=== PATIENT | female | born 1950 | race Caucasian/White ===

== ENCOUNTER 2018-10-19 11:03 | Emergency (ER) | payer OTHER ==
--- OUTSIDE RECORDS SUMMARY | 2018-10-19 11:06 | XMS REPORT ---
:1950 Author Organization [facility] Address [address] [place] [address] Dr. Whiteside [address] [place] [address] Care Team Providers Name Role Phone Claire Rice Unavailable Problems This patient has no known problems. Allergies, Adverse Reactions, Alerts This patient has no known allergies or adverse reactions. Medications This patient has no known medications. Results Test Description Test Time Test Comments Text Results Atomic Results Result Comments [id number] 2017-02-26 SURGICAL 11:54:00 [facility] PATHOLOGY, [address] [place] [address] LEVEL IV Laboratory Printed: 02/26/17 1155 BK DAEMPathology Fax: Page: 1 Patient: EUSEBIA ZAVALETA Birthdate: 1949 Age/Sex: 66/F Spec#: [id number]: Claire Rice Specimen Date: 02/24/17 Received Date: 02/25/17 Specimen: SKIN CLINICAL DIAGNOSIS L98.9 PATHOLOGIC DIAGNOSIS Skin, abdomen, excision: - Irritated, inflamed seborrheic keratosis. - No dysplasia or malignancy identified. Pathologist:Jayson Cowan MD Entered by:02/26/17 - 1144 LAB.YGP PROCEDURES: [id number] GROSS DESCRIPTION A. SKIN ABDOMEN The specimen is received in 10% formalin, and is labeled with the patient's name and tissuerequest. Accompanying paperwork says "abdomen". The specimen consists of a borrero-pinkpolypoid slightly pedunculated tissue fragment measuring 1.2 x 1.0 x 0.5 cm in greatestdimensions. The deep margin is inked black. Both ends are shaved, and the remainingfragment is cross sectioned and entirely submitted in two cassettes, A1-2. Section code:A1 - ends Patient: EUSEBIA ZAVALETA Re02/24/17Loc[facility]#: [id number] CONTINUED ON NEXT PAGE Dis: Sta: DEP CLI [address] [address] Laboratory Printed: 02/26/[address] [facility] [facility] DAEMPathology Fax: Page: 2 Patient: EUSEBIA ZAVALETA [id number] (Continued) --- GROSS DESCRIPTION (Continued) A2 - cross sections Dictated by: Vidhi Varela Entered by: 02/25/17 - 1133 [facility].YGP MICROSCOPIC DESCRIPTION A microscopic examination was performed to arrive at the diagnostic conclusion reported. Signed ( Electronically Signed) Jayson Cowan MD 02/26/17 Patient: EUSEBIA ZAVALETAYCE Re06/05Loc: [facility] MR#: [id number] END OF REPORT Dis: Sta: DEP CLI
--- NOTE | 2018-10-19 12:57 | RAD REPORT ---
EXAM DESCRIPTION: RAD - Chest Single View - 10/19/2018 12:50 pm CLINICAL HISTORY: Cough and congestion, COPD COMPARISON: March 2014 TECHNIQUE: AP portable chest image was obtained 1239 hours . FINDINGS: No focal consolidation. Lung markings in the left midlung field are fractionally increased over comparison. No failure or volume overload findings. Heart and vasculature are normal. No measurable pleural effusion and no pneumothorax. No acute bony abnormality seen. No acute aortic findings suspected. IMPRESSION: No mass, consolidation or failure finding. Slight increase in lung markings left midlung field compared to 2014. A minimal left mid lung field i nfiltrate is possible.
--- NOTE | 2018-10-19 13:31 | ER ---
Nurse's Notes [facility] Name: Sonal Scruggs Age: 68 yrs Sex: Female : 1950 Arrival Date: 10/19/2018 Time: 11:04 Bed 25 Private MD: None, None Diagnosis: Acute bronchitis;Acute upper respiratory infection, unspecified Presentation: 10/19 11:23 Presenting complaint: Patient states: about a month, i think i have a virus, about 4 hj days ago, i started coughing up dark green stuff and its getting thicker as the day passes; reports fever and chills; took mucniex [employer];. Transition of care: patient was not received from another setting of care. Onset of symptoms was October 19, 2018. Risk Assessment: Do you want to hurt yourself or someone else? Patient reports no desire to harm self or others. Initial Sepsis Screen: Does the patient meet any 2 criteria? No. Patient's initial sepsis screen is negative. Does the patient have a suspected source of infection? No. Patient's initial sepsis screen is negative. Care prior to arrival: None. 11:23 Method Of Arrival: Ambulatory 11:23 Acuity: CONY 3 hj Triage Assessment: 11:26 General: Appears in no apparent distress. uncomfortable, Behavior is calm, cooperative, hj appropriate for age. Pain: Complains of pain in rib cage. Historical: - Allergies: 11:26 Ciprofloxacin HCl; hj 11:26 PENICILLINS; hj 11:26 Codeine; hj 11:26 TETRACYCLINES; hj 11:26 Azithromycin; hj - Home Meds: 11:26 metoprolol tartrate 25 mg Oral tab 1 tab 2 times per day [Active]; Paxil 10 mg Oral tab hj 1 tab once daily [Active]; aspirin 81 mg Oral TbEC 1 tab once daily [Active]; Zocor Oral [Active]; - PMHx: 11:26 Hypertension; Hyperlipidemia; hj - PSHx: 11:26 bladder sling; kidney surgery; Hysterectomy; Heart stents; hj - Immunization history:: Adult Immunizations up to date. - Social history:: Smoking status: Patient/guardian denies using tobacco, Patient/guardian denies using alcohol. - Ebola Screening: : Patient negative for fever greater than or equal to 101.5 degrees Fahrenheit, and additional compatible Ebola Virus Disease symptoms Patient denies exposure to infectious person Patient denies travel to an Ebola-affected area in the 21 days before illness onset. Screenin:27 Abuse screen: Denies threats or abuse. Denies injuries from another. Nutritional hj screening: No deficits noted. Tuberculosis screening: No symptoms or risk factors identified. Fall Risk Assessment: 12:29 General: Appears in no apparent distress. uncomfortable, Behavior is calm, cooperative, aj1 appropriate for age. Pain: Complains of pain in left lateral anterior chest Pain does not radiate. Pain currently is 5 out of 10 on a pain scale. Quality of pain is described as aching, Aggravated by cough. Neuro: Level of Consciousness is awake, alert, obeys commands. Cardiovascular: Patient's skin is warm and dry. Respiratory: Airway is patent Respiratory effort is even, unlabored, Respiratory pattern is regular, symmetrical. GI: Reports nausea, Patient currently denies diarrhea, vomiting. : No signs and/or symptoms were reported regarding the genitourinary system. Denies burning with urination, inability to void. EENT: No signs and/or symptoms were reported regarding the EENT system. Derm: No signs and/or symptoms reported regarding the dermatologic system. Skin is pink, warm \T\ dry. normal. Musculoskeletal: No signs and/or symptoms reported regarding the musculoskeletal system. Circulation, motion, and sensation intact. 13:30 Reassessment: Patient appears in no apparent distress at this time. No changes from aj1 previously documented assessment. Patient and/or family updated on plan of care and expected duration. Pain level reassessed. Patient is alert, oriented x 3, equal unlabored respirations, skin warm/dry/pink. 13:48 Reassessment: Dr. Wing at bedside. Order received to give patient breathing aj1 treatment prior to discharge. 14:41 Reassessment: Patient appears in no apparent distress at this time. No changes from aj1 previously documented assessment. Patient and/or family updated on plan of care and expected duration. Pain level reassessed. Patient is alert, oriented x 3, equal unlabored respirations, skin warm/dry/pink. Vital Signs: 11:27 BP 118 / 59; Pulse 72; Resp 18; Temp 97.7(TE); Pulse Ox 97% on R/A; Weight 88.45 kg; hj Height 5 ft. 6 in. (167.64 cm); Pain 3/10; 11:27 Body Mass Index 31.47 (88.45 kg, 167.64 cm) ED Course: 11:04 Patient arrived in ED. ag5 11:04 Dov Wing MD is Attending Physician. kdr 11:04 None, None is Private Physician. ag5 11:24 Triage completed. hj 11:27 Arm band placed on left wrist. hj 11:27 Patient has correct armband on for positive identification. Placed in gown. Bed in low hj position. Call light in reach. Side rails up X 1. 12:19 Kiley Greer, RN is Primary Nurse. aj1 12:29 No provider procedures requiring assistance completed. aj1 12:48 X-ray completed. Portable x-ray completed in exam room. Patient tolerated procedure jb2 well. 12:50 CXR XRAY In Process Unspecified. EDMS 14:41 Patient did not have IV access during this emergency room visit. aj1 Administered Medications: 14:11 Drug: LevaQUIN 500 mg Route: PO; aj1 14:12 Drug: Xopenex 1.25 mg Route: Inhalation; aj1 Outcome: 13:29 Discharge ordered by . kdr 14:41 Discharged to home ambulatory. aj1 14:41 Condition: good 14:41 Discharge instructions given to patient, Instructed on discharge instructions, follow up and referral plans. medication usage, Demonstrated understanding of instructions, follow-up care, medications, Prescriptions given X 4. 14:42 Patient left the ED. aj1 Signatures: Dispatcher [employer] EDUT Kiley Greer, IRAJ RN aj1 Dov Wing MD MD [facility] Jose Juan Lopez jb2 Anil Palmer RN RN Stephane Cruz ag5 Corrections: (The following items were deleted from the chart) 11:29 11:27 Pulse 72bpm; Resp 18bpm; Pulse Ox 97% RA; Temp 97.7F Temporal; 88.45 kg; Height 5 hj ft. 6 in.; BMI: 31.4; Pain 3/10; hj
--- NOTE | 2018-10-19 13:31 | EDPHYS ---
Physician Documentation [facility] Name: Sonal Scruggs Age: 68 yrs Sex: Female : 1950 Arrival Date: 10/19/2018 Time: 11:04 Bed 25 Private MD: None, None ED Physician Dov Wing HPI: 10/20 08:04 This 68 yrs old Female presents to ER via Ambulatory with complaints of Cough.kdr 08:04 The patient or guardian reports airway noise, cough, that is intermittent, described as kdr moderate, with productive sputum, that is green. Onset: The symptoms/episode began/occurred gradually, 4 day(s) ago. Severity of symptoms: At their worst the symptoms were mild, moderate, just prior to arrival, in the emergency department the symptoms are unchanged. Modifying factors: The symptoms are alleviated by nothing, the symptoms are aggravated by. Associated signs and symptoms: Pertinent positives: Pertinent negatives: chest pain, diarrhea, ear ache, fever, nausea, rhinorrhea, sore throat, vomiting. The patient has not experienced similar symptoms in the past. The patient has not recently seen a physician. Historical: - Allergies: 10/19 11:26 Ciprofloxacin HCl; hj 11:26 PENICILLINS; hj 11:26 Codeine; hj 11:26 TETRACYCLINES; hj 11:26 Azithromycin; hj - Home Meds: 11:26 metoprolol tartrate 25 mg Oral tab 1 tab 2 times per day [Active]; Paxil 10 mg Oral tab hj 1 tab once daily [Active]; aspirin 81 mg Oral TbEC 1 tab once daily [Active]; Zocor Oral [Active]; - PMHx: 11:26 Hypertension; Hyperlipidemia; hj - PSHx: 11:26 bladder sling; kidney surgery; Hysterectomy; Heart stents; hj - Immunization history:: Adult Immunizations up to date. - Social history:: Smoking status: Patient/guardian denies using tobacco, Patient/guardian denies using alcohol. - Ebola Screening: : Patient negative for fever greater than or equal to 101.5 degrees Fahrenheit, and additional compatible Ebola Virus Disease symptoms Patient denies exposure to infectious person Patient denies travel to an Ebola-affected area in the 21 days before illness onset. ROS: 10/20 08:04 Constitutional: Negative for fever, chills, and weight loss, Eyes: Negative for injury, kdr pain, redness, and discharge, Neck: Negative for injury, pain, and swelling, Cardiovascular: Negative for chest pain, palpitations, and edema, Abdomen/GI: Negative for abdominal pain, nausea, vomiting, diarrhea, and constipation, Back: Negative for injury and pain, Skin: Negative for injury, rash, and discoloration, Neuro: Negative for headache, weakness, numbness, tingling, and seizure activity. Psych: Negative for depression, anxiety, suicide ideation, homicidal ideation, and hallucinations, Allergy/Immunology: Negative for hives, rash, and allergies, Endocrine: Negative for neck swelling, polydipsia, polyuria, polyphagia, and marked weight changes, Hematologic/Lymphatic: Negative for swollen nodes, abnormal bleeding, and unusual bruising. Respiratory: Positive for cough, with no reported sputum, dyspnea on exertion, shortness of breath, Negative for hemoptysis, orthopnea, pleurisy, wheezing. Exam: 08:04 Constitutional: This is a well developed, well nourished patient who is awake, alert, kdr and in no acute distress. Head/Face: Normocephalic, atraumatic. Eyes: Pupils equal round and reactive to light, extra-ocular motions intact. Lids and lashes normal. Conjunctiva and sclera are non-icteric and not injected. Cornea within normal limits. Periorbital areas with no swelling, redness, or edema. Neck: Trachea midline, no thyromegaly or masses palpated, and no cervical lymphadenopathy. Supple, full range of motion without nuchal rigidity, or vertebral point tenderness. No Meningismus. Chest/axilla: Normal chest wall appearance and motion. Nontender with no deformity. No lesions are appreciated. Cardiovascular: Regular rate and rhythm with a normal S1 and S2. No gallops, murmurs, or rubs. Normal PMI, no JVD. No pulse deficits. Abdomen/GI: Soft, non-tender, with normal bowel sounds. No distension or tympany. No guarding or rebound. No evidence of tenderness throughout. Back: No spinal tenderness. No costovertebral tenderness. Full range of motion. Skin: Warm, dry with normal turgor. Normal color with no rashes, no lesions, and no evidence of cellulitis. MS/ Extremity: Pulses equal, no cyanosis. Neurovascular intact. Full, normal range of motion. Neuro: Awake and alert, GCS 15, oriented to person, place, time, and situation. Cranial nerves II-XII grossly intact. Motor strength 5/5 in all extremities. Sensory grossly intact. Cerebellar exam normal. Normal gait. Psych: Awake, alert, with orientation to person, place and time. Behavior, mood, and affect are within normal limits. 08:04 Respiratory: the patient does not display signs of respiratory distress, Respirations: normal, Breath sounds: decreased breath sounds, that are mild, are scattered, rhonchi, that are moderate, are located in both bases, stridor, is not appreciated, + upper airway congestion. Vital Signs: 10/19 11:27 BP 118 / 59; Pulse 72; Resp 18; Temp 97.7(TE); Pulse Ox 97% on R/A; Weight 88.45 kg; hj Height 5 ft. 6 in. (167.64 cm); Pain 3/10; 11:27 Body Mass Index 31.47 (88.45 kg, 167.64 cm) hj MDM: 13:29 Patient medically screened. kdr 10/20 08:04 Data reviewed: vital signs, nurses notes, lab test result(s), radiologic studies. kdr Counseling: I had a detailed discussion with the patient and/or guardian regarding: the historical points, exam findings, and any diagnostic results supporting the discharge/admit diagnosis, lab results, radiology results, the need for outpatient follow up. 10/19 12:27 Order name: Flu; Complete Time: 13:26 kdr 10/19 12:27 Order name: CXR XRAY; Complete Time: 13:26 kdr Administered Medications: 10/19 14:11 Drug: LevaQUIN 500 mg Route: PO; aj1 14:12 Drug: Xopenex 1.25 mg Route: Inhalation; aj1 Disposition: 10/19/18 13:29 Discharged to Home. Impression: Acute bronchitis, Acute upper respiratory infection, unspecified. - Condition is Stable. - Discharge Instructions: Acute Bronchitis, Fooh-du-Phps, Upper Respiratory Infection, Adult, Oahd-fh-Rynj, Cough, Adult, Kmgm-eh-Oaet. - Prescriptions for Tessalon Perles 100 mg Oral Capsule - take 1 capsule by ORAL route every 8 hours As needed; 15 capsule. Mucinex D Maximum Strength 120- 1,200 mg Oral tablet extended release 12 hr - take 1 tablet by ORAL route every 12 hours As needed as needed; 20 tablet. Xopenex HFA 45 mcg/actuation Inhalation HFA aerosol inhaler - inhale 2 puff by INHALATION route every 4-6 hours As needed; 1 Cartridge. Levaquin 500 mg Oral Tablet - take 1 tablet by ORAL route once daily for 10 days; 10 tablet. - Medication Reconciliation Form, Thank You Letter, Antibiotic Education form. - Follow up: Private Physician; When: 2 - 3 days; Reason: If symptoms return, Further diagnostic work-up, Recheck today's complaints, Continuance of care, Re-evaluation by your physician. - Problem is new. - Symptoms have improved. Signatures: Dispatcher [employer] EDKiley Virk RN RN aj1 Dov Wing MD MD kdr Joaquin, Henry, RN RN hj Corrections: (The following items were deleted from the chart) 14:42 13:29 10/19/2018 13:29 Discharged to Home. Impression: Acute bronchitis; Acute upper aj1 respiratory infection, unspecified. Condition is Stable. Forms are Medication Reconciliation Form, Thank You Letter, Antibiotic Education, Prescription Opioid Use. Follow up: Private Physician; When: 2 - 3 days; Reason: If symptoms return, Further diagnostic work-up, Recheck today's complaints, Continuance of care, Re-evaluation by your physician. Problem is new. Symptoms have improved. kdr
[2018-10-19] MEDS ORDERED: LEVALBUTEROL 1.25 MG/3 ML NEB ONE (14:03)
[2018-10-19] MEDS ORDERED: levoFLOXacin 500 MG TAB ONE (14:04)
[2018-10-19 14:48] VITALS: BP 118/59; TEMP 97.7; O2SAT 97
== END 2018-10-19 14:42 | disposition home or self-care (01) ==
LOC: ER 11:03
DX: J20.9 Acute bronchitis, unspecified (principal); J06.9 Acute upper respiratory infection, unspecified; I10 Essential (primary) hypertension; E78.5 Hyperlipidemia, unspecified; Z79.82 Long term (current) use of aspirin; Z88.0 Allergy status to penicillin; Z88.1 Allergy status to other antibiotic agents; Z88.3 Allergy status to other anti-infective agents; Z88.5 Allergy status to narcotic agent; Z95.818 Presence of other cardiac implants and grafts
CPT/HCPCS: 71045; 87804; 99284

== ENCOUNTER 2019-07-04 11:18 | Emergency (ER) | payer BC, OTHER ==
--- OUTSIDE RECORDS SUMMARY | 2019-07-04 11:20 | XMS REPORT ---
:1950 [facility] Address [address] [place] [address] Dr. Whiteside [address] [place] [address] Care Team Providers Name Role Phone Claire Rice Unavailable Problems This patient has no known problems. Allergies, Adverse Reactions, Alerts This patient has no known allergies or adverse reactions. Medications This patient has no known medications. Results Test Description Test Time Test Comments Text Results Atomic Results Result Comments [id number] 2017-02-26 SURGICAL 11:54:00 [facility] PATHOLOGY, [address] [place] [address] LEVEL IV Laboratory Printed: 02/26/17 1155 BK DAEMPathology Fax: Page: 1 Patient: EUSEBIA ZAVALETA Birthdate: 1949 Age/Sex: 66/F Spec#: [id number]: Claire Rice Specimen Date: 02/24/17 Received Date: 02/25/17 Specimen: SKIN CLINICAL DIAGNOSIS L98.9 PATHOLOGIC DIAGNOSIS Skin, abdomen, excision: - Irritated, inflamed seborrheic keratosis. - No dysplasia or malignancy identified. Pathologist:Jayson Cowan MD Entered by:02/26/17 - 1144 LAB.YGP PROCEDURES: [id number] GROSS DESCRIPTION A. SKIN ABDOMEN The specimen [...] code:A1 - ends Patient: EUSEBIA ZAVALETA Re02/24/17Loc[facility] [id number] CONTINUED ON NEXT PAGE Dis: Sta: DEP CLI [address] [address] Laboratory Printed: 02/26/[address] [place] [address] DAEMPathology Fax: Page: 2 Patient: EUSEBIA ZAVALETA [id number] (Continued) --- GROSS DESCRIPTION (Continued) A2 - cross sections Dictated by: Vidhi Varela Entered by: 02/25/17 - 1133 [facility].YGP MICROSCOPIC DESCRIPTION A microscopic examination was performed to arrive at the diagnostic conclusion reported. Signed ( Electronically Signed) Jayson Cowan MD 02/26/17 Patient: EUSEBIA ZAVALETAYCE Re06/05Loc: [facility] MR#: [id number] END OF REPORT Dis: Sta: DEP CLI
[2019-07-04] MEDS ORDERED: ALBUTEROL 2.5 MG/3 ML NEB SOL ONE (12:30)
[2019-07-04] MEDS ORDERED: IPRATROPIUM BROM 0.5MG/2.5ML ONE (12:30)
[2019-07-04 13:15] LABS: Absolute Lymphocytes (CBC) 1.1 K/uL (0.7-4.9); Basophils % 0.3 % (0-1.3); Hematocrit 38.1 % (36.0-45.0); Lymphocytes % 18.2 % (15.3-44.8); MPV 11.3 fL (7.6-11.3); RBC Red Blood Cell Count 4.33 M/uL (3.86-4.86)
[2019-07-04] MEDS ORDERED: MECLIZINE HCL 12.5 MG TAB ONE (13:22)
[2019-07-04 13:28] LABS: Protime INR 0.96
[2019-07-04 13:33] LABS: ALT/SGPT 20 U/L (12-78); AST/SGOT 16 U/L (15-37); Alkaline Phosphatase 89 U/L (45-117); BUN Blood Urea Nitrogen 15 mg/dL (7-18); Bicarbonate 29 mmol/L (21-32); Bilirubin Direct 0.2 mg/dL (0-0.2); Bilirubin Total 0.6 mg/dL (0.2-1.0); Glucose Level 104 mg/dL (74-106); Magnesium 2.4 mg/dL (1.8-2.4); NT PRO-BNP 668 pg/mL (<125); Potassium 4.1 mmol/L (3.5-5.1); Protein, Total 7.5 g/dL (6.4-8.2); Sodium Level 143 mmol/L (136-145); Troponin (Emerg Dept Use Only) < 0.02 ng/mL (0.0-0.045)
--- NOTE | 2019-07-04 13:56 | RAD REPORT ---
EXAM DESCRIPTION: RAD - Chest Pa And Lat (2 Views) - 07/04/2019 1:39 pm CLINICAL HISTORY: Cough;Congestion Chest pain. COMPARISON: Chest Single View dated 10/19/2018; CHEST SINGLE VIEW dated 04/16/2014; CHEST SINGLE VIEW dated 04/12/2014; CHEST SINGLE VIEW dated 12/27/2013 FINDINGS: Hyperexpansion of the lungs noted compatible with COPD. Interstitial prominence with perib ronchial cuffing suggests underlying bronchitis. The heart is normal in size. No displaced fractures.
--- NOTE | 2019-07-04 14:15 | ER ---
Nurse's Notes [facility] Name: Sonal Scruggs Age: 69 yrs Sex: Female : 1950 Arrival Date: 07/04/2019 Time: 11:20 Bed 25 Private MD: Diagnosis: Acute bronchitis Presentation: 07/04 11:57 Presenting complaint: Productive cough with dark green mucous decreased appetite, mid hb back pain, and chills x 2 week. Transition of care: patient was not received from another setting of care. Onset of symptoms was June 27, 2019. Risk Assessment: Do you want to hurt yourself or someone else? Patient reports no desire to harm self or others. Initial Sepsis Screen: Does the patient meet any 2 criteria? No. Patient's initial sepsis screen is negative. Does the patient have a suspected source of infection? No. Patient's initial sepsis screen is negative. Care prior to arrival: None. 11:57 Method Of Arrival: Ambulatory hb 11:57 Acuity: CONY 3 hb Historical: - Allergies: 12:01 Azithromycin; hb 12:01 Ciprofloxacin HCl; hb 12:01 Codeine; hb 12:01 PENICILLINS; hb 12:01 TETRACYCLINES; hb - Home Meds: 12:01 aspirin 81 mg Oral TbEC 1 tab once daily [Active]; metoprolol tartrate 25 mg Oral tab 1 hb tab 2 times per day [Active]; Paxil 10 mg Oral tab 1 tab once daily [Active]; Zocor Oral [Active]; - PMHx: 12:01 Hyperlipidemia; Hypertension; hb - PSHx: 12:01 bladder sling; kidney surgery; Hysterectomy; Heart stents; hb - Immunization history:: Adult Immunizations up to date. - Social history:: Smoking status: Patient/guardian denies using tobacco. - Ebola Screening: : No symptoms or risks identified at this time. Screenin:25 Abuse screen: Denies threats or abuse. Denies injuries from another. Nutritional ca1 screening: No deficits noted. Tuberculosis screening: No symptoms or risk factors identified. Fall Risk None identified. Assessment: 12:25 General: Appears in no apparent distress. comfortable, Behavior is calm, cooperative, ca1 appropriate for age. Pain: Complains of pain in mid back area Pain does not radiate. Pain currently is 5 out of 10 on a pain scale. Pain began 2-3 days ago. Neuro: Level of Consciousness is awake, alert, obeys commands, Oriented to person, place, time, situation. Cardiovascular: Heart tones S1 S2 present Capillary refill < 3 seconds Patient's skin is warm and dry. Cardiovascular: Pulses are all present. Respiratory: Reports cough that is productive, since a week today Airway is patent Respiratory effort is even, unlabored, Respiratory pattern is regular, symmetrical, Breath sounds are clear bilaterally. GI: Abdomen is flat, non-distended, Bowel sounds present X 4 quads. Abd is soft and non tender X 4 quads. : No deficits noted. No signs and/or symptoms were reported regarding the genitourinary system. EENT: Reports nasal congestion since a week ago. Derm: Skin is intact, is healthy with good turgor, Skin is pink, warm \\T\\ dry. Musculoskeletal: Circulation, motion, and sensation intact. Capillary refill < 3 seconds, Range of motion: intact in all extremities. 13:43 Reassessment: Patient appears in no apparent distress at this time. Patient and/or ca1 family updated on plan of care and expected duration. Pain level reassessed. Patient is alert, oriented x 3, equal unlabored respirations, skin warm/dry/pink. Pt back from Xray. States feeling and breathing better. Vital Signs: 11:59 BP 154 / 72; Pulse 58; Resp 22; Temp 97.8; Pulse Ox 97% on R/A; Weight 86.18 kg; Height hb 5 ft. 6 in. (167.64 cm); Pain 5/10; 12:32 BP 144 / 69 RA Supine (auto/reg); Pulse 61; Pulse Ox 100% on R/A; jp3 12:34 BP 185 / 71 RA Sitting (auto/reg); Pulse 66; Pulse Ox 98% on R/A; jp3 12:36 BP 152 / 71 RA Standing (auto/reg); Pulse 70; Pulse Ox 98% on R/A; jp3 13:43 BP 131 / 58; Pulse 72; Resp 20 S; Pulse Ox 98% on R/A; ca1 11:59 Body Mass Index 30.67 (86.18 kg, 167.64 cm) hb 12:32 pt reported "dizziness" jp3 12:34 pt reported "some dizziness but not as bad as supine" jp3 12:36 Pt reported "some dizziness but not as bad as supine" jp3 ED Course: 11:20 Patient arrived in ED. rg4 11:59 Triage completed. hb 12:13 Ying Mcallister, RN is Primary Nurse. ca1 12:13 Palmer Johnson PA is PHCP. cp 12:13 Dov Wing MD is Attending Physician. cp 12:25 Patient has correct armband on for positive identification. Bed in low position. Call ca1 light in reach. Side rails up X 1. Pulse ox on. NIBP on. Warm blanket given. 12:25 Arm band placed on. ca1 12:25 No provider procedures requiring assistance completed. ca1 12:45 Urine collected: clean catch specimen, clear, rubia colored, Flu and/or RSV swab sent jp3 to lab. Strep swab sent to lab. 12:50 Strep Sent. jp3 12:50 Flu Sent. jp3 13:00 Initial lab(s) drawn, by nc, sent to lab. Inserted saline lock: 22 gauge in left 3 antecubital area, using aseptic technique. Blood collected. 13:04 Troponin (emerg Dept Use Only) Sent. jp3 13:04 PT-INR Sent. jp3 13:04 NT PRO-BNP Sent. jp3 13:04 CBC with Diff Sent. jp3 13:04 Magnesium Sent. jp3 13:05 LFT's Sent. jp3 13:05 Basic Metabolic Panel Sent. jp3 13:27 EKG done, by ED staff, reviewed by Palmer CROWE. jp3 14:22 IV discontinued, intact, bleeding controlled, No redness/swelling at site. Pressure ca1 dressing applied. Administered Medications: 12:32 Drug: Albuterol - atroVENT (3:1) (2.5 mg - 0.5 mg) 3 ml Route: Nebulizer; ca1 13:26 Drug: Meclizine 25 mg Route: PO; ca1 14:20 Follow up: Response: No adverse reaction; Marked relief of symptoms ca1 Outcome: 14:14 Discharge ordered by MD. cp 14:22 Discharged to home ambulatory. ca1 14:22 Condition: stable 14:22 Discharge instructions given to patient, Instructed on discharge instructions, follow up and referral plans. medication usage, Demonstrated understanding of instructions, follow-up care, medications, Prescriptions given X 3. 14:23 Patient left the ED. ca1 Signatures: Palmer Johnson PA PA cp Baxter, Heather, IRAJ RN hb Anamaria Rodriguez rg4 Nam Bautista jp3 Ying Mcallister RN RN ca1 Corrections: (The following items were deleted from the chart) 12:00 11:59 Pulse 58bpm; Resp 22bpm; Pulse Ox 97% RA; Temp 97.8F; 86.18 kg; Height 5 ft. 6 hb in.; BMI: 30.6; Pain 5/10; hb 13:46 13:43 BP 131 / 58; Pulse 72bpm; Resp 20bpm; Pulse Ox 98% RA; ca1 ca1
--- NOTE | 2019-07-04 14:16 | EDPHYS ---
Physician Documentation [facility] Name: Sonal Scruggs Age: 69 yrs Sex: Female : 1950 Arrival Date: 07/04/2019 Time: 11:20 Bed 25 Private MD: ED Physician Dov Wing HPI: 07/04 12:40 This 69 yrs old Female presents to ER via Ambulatory with complaints of cp Cough, Congestion. 12:40 The patient or guardian reports cough, that is intermittent, with productive sputum, cp that is green. Onset: The symptoms/episode began/occurred 1 week(s) ago. 12:40 Severity of symptoms: in the emergency department the symptoms are unchanged, despite cp home interventions. Associated signs and symptoms: Pertinent positives: chills, back pain, dizziness, Pertinent negatives: diarrhea, fever, vomiting. Historical: - Allergies: 12:01 Azithromycin; hb 12:01 Ciprofloxacin HCl; hb 12:01 Codeine; hb 12:01 PENICILLINS; hb 12:01 TETRACYCLINES; hb - Home Meds: 12:01 aspirin 81 mg Oral TbEC 1 tab once daily [Active]; metoprolol tartrate 25 mg Oral tab 1 hb tab 2 times per day [Active]; Paxil 10 mg Oral tab 1 tab once daily [Active]; Zocor Oral [Active]; - PMHx: 12:01 Hyperlipidemia; Hypertension; hb - PSHx: 12:01 bladder sling; kidney surgery; Hysterectomy; Heart stents; hb - Immunization history:: Adult Immunizations up to date. - Social history:: Smoking status: Patient/guardian denies using tobacco. - Ebola Screening: : No symptoms or risks identified at this time. ROS: 12:45 Eyes: Negative for injury, pain, redness, and discharge. cp 12:45 ENT: Negative for sore throat, difficulty swallowing, difficulty handling secretions. 12:45 Cardiovascular: Negative for palpitations. 12:45 Respiratory: Positive for cough, with green sputum, Negative for hemoptysis. 12:45 Abdomen/GI: Negative for abdominal pain, vomiting, diarrhea, constipation. 12:45 Neuro: Positive for dizziness, Negative for altered mental status, syncope, weakness. 12:45 Constitutional: Positive for chills, Negative for fever, poor PO intake, weight loss. cp 12:45 Back: Positive for pain at rest. 12:45 : Negative for urinary symptoms. cp 12:45 Skin: Negative for rash. 12:45 All other systems are negative. Exam: 12:55 Constitutional: The patient appears in no acute distress, alert, awake, cp non-diaphoretic, non-toxic, well developed, well nourished. 12:55 Head/Face: Normocephalic, atraumatic. cp 12:55 Eyes: Periorbital structures: appear normal, Pupils: equal, round, and reactive to cp light and accomodation, Extraocular movements: intact throughout, Conjunctiva: normal, no exudate, no injection, Sclera: no appreciated abnormality, Lids and lashes: appear normal, bilaterally. 12:55 ENT: External ear(s): are unremarkable, Ear canal(s): are normal, clear, TM's: bulging, cp is not appreciated, bilaterally, dullness, bilaterally, erythema, is not appreciated, bilaterally, Nose: is normal, Mouth: Lips: moist, Oral mucosa: pink and intact, moist, Posterior pharynx: Airway: no evidence of obstruction, patent, Tonsils: are normal in appearance, Uvula: midline, swelling, is not appreciated, erythema, is not appreciated, exudate, is not appreciated. 12:55 Neck: ROM/movement: is normal, is supple, without pain, no range of motions limitations, no meningismus, no nuchal rigidity. 12:55 Chest/axilla: Inspection: normal, Palpation: is normal, no crepitus, no tenderness. 12:55 Cardiovascular: Rate: normal, Rhythm: regular, Edema: is not appreciated, JVD: is not appreciated. 12:55 Respiratory: the patient does not display signs of respiratory distress, Respirations: normal, no use of accessory muscles, no retractions, no splinting, no tachypnea, labored breathing, is not present, Breath sounds: bronchial sounds, that are mild, are heard diffusely, decreased breath sounds, are not appreciated, stridor, is not appreciated, + upper airway congestion. 12:55 Abdomen/GI: Inspection: abdomen appears normal, Palpation: abdomen is soft and non-tender, in all quadrants. 12:55 Back: pain, is absent, ROM is normal. 12:55 Skin: no rash present. 12:55 Neuro: Orientation: to person, place \\T\\ time. Mentation: is normal, Cerebellar function: is grossly normal, Motor: moves all fours, strength is normal, Sensation: is normal. 13:29 ECG was reviewed by the Attending Physician. cp Vital Signs: 11:59 BP 154 / 72; Pulse 58; Resp 22; Temp 97.8; Pulse Ox 97% on R/A; Weight 86.18 kg; Height hb 5 ft. 6 in. (167.64 cm); Pain 5/10; 12:32 BP 144 / 69 RA Supine (auto/reg); Pulse 61; Pulse Ox 100% on R/A; jp3 12:34 BP 185 / 71 RA Sitting (auto/reg); Pulse 66; Pulse Ox 98% on R/A; jp3 12:36 BP 152 / 71 RA Standing (auto/reg); Pulse 70; Pulse Ox 98% on R/A; jp3 13:43 BP 131 / 58; Pulse 72; Resp 20 S; Pulse Ox 98% on R/A; ca1 11:59 Body Mass Index 30.67 (86.18 kg, 167.64 cm) hb 12:32 pt reported "dizziness" jp3 12:34 pt reported "some dizziness but not as bad as supine" jp3 12:36 Pt reported "some dizziness but not as bad as supine" jp3 MDM: 12:15 Patient medically screened. cp 13:00 Differential Diagnosis: Bronchitis Viral Syndrome Pneumonia. cp 14:12 Data reviewed: vital signs, nurses notes, lab test result(s), EKG, radiologic studies, cp plain films. ED course: VSS. Patient with history of COPD and with length of symptoms for past 1-2 weeks, will treat outpatient with Levaquin antibiotic. 14:12 Test interpretation: by ED physician or midlevel provider: ECG, plain radiologic cp studies. 14:12 Counseling: I had a detailed discussion with the patient and/or guardian regarding: the cp historical points, exam findings, and any diagnostic results supporting the discharge/admit diagnosis, lab results, radiology results, the need for outpatient follow up, a family practitioner, to return to the emergency department if symptoms worsen or persist or if there are any questions or concerns that arise at home. Response to treatment: the patient's symptoms have markedly improved after treatment, and as a result, I will discharge patient. 07/04 12:00 Order name: Flu hb 07/04 12:01 Order name: Strep hb 07/04 12:35 Order name: Group A Streptococcus Rapid Sc; Complete Time: 12:47 EDMS 07/04 12:47 Interpretation: Reviewed. 07/04 12:46 Order name: Influenza Screen (A ; Complete Time: 12:47 EDMS 07/04 12:47 Interpretation: Reviewed. 07/04 12:49 Order name: Basic Metabolic Panel 07/04 12:49 Order name: CBC with Diff 07/04 12:49 Order name: LFT's 07/04 12:49 Order name: Magnesium 07/04 12:49 Order name: NT PRO-BNP 07/04 12:49 Order name: PT-INR 07/04 12:49 Order name: Troponin (emerg Dept Use Only) 07/04 13:18 Order name: CBC with Automated Diff; Complete Time: 13:37 EDMS 07/04 13:37 Interpretation: Normal except: PLT 106. 07/04 13:31 Order name: Protime (+INR); Complete Time: 13:37 EDMS 07/04 13:34 Order name: Basic Metabolic Panel; Complete Time: 13:37 EDMS 07/04 13:37 Interpretation: Normal except: GFR 60. 07/04 12:27 Order name: XRAY Chest Pa And Lat (2 Views) 07/04 12:49 Order name: EKG; Complete Time: 12:50 07/04 12:49 Order name: Cardiac monitoring; Complete Time: 13:04 07/04 12:49 Order name: EKG - Nurse/Tech; Complete Time: 13:26 07/04 12:49 Order name: IV Saline Lock; Complete Time: 13:04 07/04 12:49 Order name: Labs collected and sent; Complete Time: 13:04 07/04 12:49 Order name: O2 Per Protocol; Complete Time: 13:04 07/04 12:49 Order name: O2 Sat Monitoring; Complete Time: 13:04 07/04 13:34 Order name: Liver (Hepatic) Function; Complete Time: 13:37 EDMS 07/04 13:34 Order name: Troponin (Emerg Dept Use Only); Complete Time: 13:37 EDMS 07/04 13:35 Order name: NT PRO-BNP; Complete Time: 13:37 EDMS 07/04 13:37 Interpretation: Abnormal: NT PRO-BNP 668. cp 07/04 13:35 Order name: Magnesium; Complete Time: 13:37 EDMS 07/04 13:58 Order name: RAD; Complete Time: 14:09 EDMS EC:29 Rate is 70 beats/min. Rhythm is regular. FL interval is normal. QRS interval is normal. cp QT interval is normal. Interpreted by me. Reviewed by me. Administered Medications: 12:32 Drug: Albuterol - atroVENT (3:1) (2.5 mg - 0.5 mg) 3 ml Route: Nebulizer; ca1 13:26 Drug: Meclizine 25 mg Route: PO; ca1 14:20 Follow up: Response: No adverse reaction; Marked relief of symptoms ca1 Disposition: 07/05 09:35 Co-signature as Attending Physician, Dov Wing MD I agree with the assessment and kdr plan of care. Disposition: 07/04/19 14:14 Discharged to Home. Impression: Acute bronchitis. - Condition is Stable. - Discharge Instructions: Acute Bronchitis, Adult. - Prescriptions for Levaquin 500 mg Oral Tablet - take 1 tablet by ORAL route once daily for 7 days; 7 tablet. Albuterol Sulfate 90 mcg/actuation - inhale 1-2 puff by INHALATION route every 4-6 hours; 1 Inhaler. Tessalon Perles 100 mg Oral Capsule - take 2 capsule by ORAL route every 8 hours As needed; 20 capsule. - Medication Reconciliation Form, Thank You Letter, Antibiotic Education, Prescription Opioid Use form. - Follow up: Private Physician; When: 2 - 3 days; Reason: Recheck today's complaints. - Problem is new. - Symptoms have improved. Signatures: Dispatcher [employer] EDNC Dov Wing MD MD [facility] Palmer Johnson PA PA cp Baxter, Heather, RN RN Ying Mcallister RN RN ca1 Corrections: (The following items were deleted from the chart) 07/04 14:23 14:14 07/04/2019 14:14 Discharged to Home. Impression: Acute bronchitis. Condition is ca1 Stable. Forms are Medication Reconciliation Form, Thank You Letter, Antibiotic Education, Prescription Opioid Use. Follow up: Private Physician; When: 2 - 3 days; Reason: Recheck today's complaints. Problem is new. Symptoms have improved. cp 07/05 12:07/04 12:45 Constitutional: Negative for body aches, fever, poor PO intake, cp cp 07/05 12:07/04 12:45 All other systems are negative, cp cp
[2019-07-04 14:58] VITALS: TEMP 97.8
[2019-07-04 15:01] VITALS: O2SAT 98
[2019-07-04 15:03] VITALS: BP 131/58
--- NOTE | 2019-07-05 11:35 | EKG ---
Test Date: 2019-07-04 Test Time: 13:25:13 Power Distribution Engineer: WILBERTO MEASUREMENT RESULTS: Intervals: Rate: 70 DE: 120 QRSD: 88 QT: 392 QTc: 423 [place]: P: 63 DE: 120 QRS: 62 T: -47 INTERPRETIVE STATEMENTS: Normal sinus rhythm Nonspecific ST and T wave abnormality Abnormal ECG Compared to ECG 04/17/2014 07:59:05 ST (T wave) deviation now present Atrial premature complex(es) no longer present Electronically Signed On 07-05-19 11:31:23 CDT by Carlos Garland
== END 2019-07-04 14:23 | disposition home or self-care (01) ==
LOC: ER 11:18
DX: J20.9 Acute bronchitis, unspecified (principal); I10 Essential (primary) hypertension; E78.5 Hyperlipidemia, unspecified; Z88.0 Allergy status to penicillin; Z88.6 Allergy status to analgesic agent; Z88.3 Allergy status to other anti-infective agents
CPT/HCPCS: 36415; 71046; 80048; 80076; 83735; 83880; 84484; 85025; 85610; 87070; 87081; 87804; 93005; 94640; 99284

== ENCOUNTER 2019-11-07 18:05 | Observation (INO) | payer OTHER ==
--- OUTSIDE RECORDS SUMMARY | 2019-11-07 18:14 | XMS REPORT ---
:1950 [facility] [address] [place] [address] Dr. Whiteside [address] [place] [id number] Care Team Providers Name Role Phone Claire Rice Unavailable Unavailable Problems This patient has no known problems. Allergies, Adverse Reactions, Alerts This patient has no known allergies or adverse reactions. Medications This patient has no known medications. Results Test Description Test Time Test Comments Text Results Atomic Results Result Comments [id number] 2017-02-26 SURGICAL 11:54:00 [facility] PATHOLOGY, [facility] [place] [address] LEVEL IV Laboratory Printed: 02/26/17 1155 [facility] DAEMPathology Fax: Page: 1 Patient: EUSEBIA ZAVALETA Birthdate: 1949 Age/Sex: 66/F Spec#: [id number]: Claire Rice Specimen Date: 02/24/17 Received Date: 02/25/17 Specimen: SKIN CLINICAL DIAGNOSIS L98.9 PATHOLOGIC DIAGNOSIS Skin, abdomen, excision: - Irritated, inflamed seborrheic keratosis. - No dysplasia or malignancy identified. Pathologist:Jayson Cowan MD Entered by:02/26/17 - 1144 LAB.YGP PROCEDURES: [id number] GROSS DESCRIPTION A. SKIN ABDOMEN The specimen [...] code:A1 - ends Patient: EUSEBIA ZAVALETA Re02/24/17Loc: [facility] MR#: [id number] CONTINUED ON NEXT PAGE Dis: Sta: DEP CLI [address] [address] Laboratory Printed: 02/26/[address] [place] [address] DAEMPathology Fax: Page: 2 Patient: EUSEBIA ZAVALETAYCE [id number] (Continued) --- GROSS DESCRIPTION (Continued) A2 - cross sections Dictated by: Vidhi Varela Entered by: 02/25/17 - 1133 [facility].YGP MICROSCOPIC DESCRIPTION A microscopic examination was performed to arrive at the diagnostic conclusion reported. Signed ( Electronically Signed) Jayson Cowan MD 02/26/17 Patient: EUSEBIA ZAVALETA Re06/05Loc: [facility] MR#: [id number] END OF REPORT Dis: Sta: DEP CLI
[2019-11-07 18:39] LABS: Absolute Lymphocytes (CBC) 1.3 K/uL (0.7-4.9); Basophils % 0.5 % (0-1.3); Hematocrit 37.7 % (36.0-45.0); Lymphocytes % 32.1 % (15.3-44.8); RBC Red Blood Cell Count 4.32 M/uL (3.86-4.86)
[2019-11-07 18:43] LABS: Protime INR 0.91
[2019-11-07 18:59] LABS: ALT/SGPT 25 U/L (12-78); AST/SGOT 22 U/L (15-37); Albumin 3.8 g/dL (3.4-5.0); Alkaline Phosphatase 65 U/L (45-117); BUN Blood Urea Nitrogen 26 mg/dL (7-18); Bicarbonate 28 mmol/L (21-32); Bilirubin Direct 0.1 mg/dL (0-0.2); Bilirubin Total 0.5 mg/dL (0.2-1.0); Glucose Level 97 mg/dL (74-106); Magnesium 2.5 mg/dL (1.8-2.4); NT PRO-BNP 742 pg/mL (<125); Potassium 3.9 mmol/L (3.5-5.1); Protein, Total 6.9 g/dL (6.4-8.2); Sodium Level 143 mmol/L (136-145); Troponin (Emerg Dept Use Only) < 0.02 ng/mL (0.0-0.045)
--- NOTE | 2019-11-07 19:58 | RAD REPORT ---
EXAM DESCRIPTION: RAD - Chest Single View - 11/07/2019 7:44 pm CLINICAL HISTORY: Chest pain COMPARISON: July 04, 2019 TECHNIQUE: AP portable chest image was obtained 1902 hours . FINDINGS: Lungs are clear. Lung markings match comparison. Heart and vasculature are normal. No julia urable pleural effusion and no pneumothorax. No acute bony abnormality seen. No acute aortic findings suspected. IMPRESSION: No acute cardiopulmonary process.
--- NOTE | 2019-11-07 20:04 | ER ---
Nurse's Notes [facility] Name: Sonal Scruggs Age: 69 yrs Sex: Female : 1950 Arrival Date: 11/07/2019 Time: 18:09 Bed 18 Private MD: Diagnosis: Chest pain, unspecified Presentation: 11/07 18:10 Presenting complaint: EMS states: CHEST PAIN x2 HR. Transition of care: patient was not bp received from another setting of care. Onset of symptoms is unknown. Risk Assessment: Do you want to hurt yourself or someone else? Patient reports no desire to harm self or others. Initial Sepsis Screen: Does the patient meet any 2 criteria? No. Patient's initial sepsis screen is negative. Does the patient have a suspected source of infection? No. Patient's initial sepsis screen is negative. Care prior to arrival: IV initiated. 20 GA, in the right wrist, Glucose check: 87. 18:10 Method Of Arrival: EMS: [facility] bp 18:10 Acuity: CONY 2 bp Triage Assessment: 18:19 General: Appears in no apparent distress. comfortable, Behavior is cooperative, bp appropriate for age, anxious. Pain: Complains of pain in chest. EENT: No deficits noted. Neuro: No deficits noted. Cardiovascular: Rhythm is sinus bradycardia. Respiratory: Reports shortness of breath. GI: No signs and/or symptoms were reported involving the gastrointestinal system. : No signs and/or symptoms were reported regarding the genitourinary system. Derm: No deficits noted. Musculoskeletal: No deficits noted. Historical: - Allergies: 18:18 Ciprofloxacin HCl; bp 18:18 Codeine; bp 18:18 Morphine; bp 18:18 PENICILLINS; bp 18:18 TETRACYCLINES; bp 18:18 Azithromycin; bp 18:18 Sulfa (Sulfonamide Antibiotics); bp - Home Meds: 18:18 simvastatin 20 mg Oral tab 1 tab once daily [Active]; metoprolol tartrate 25 mg Oral bp tab 1 tab 2 times per day [Active]; paroxetine HCl 10 mg oral tab 1 tab once daily [Active]; nitroglycerin 0.4 mg SL subl 1 tab every 5 minutes [Active]; lorazepam 1 mg Oral tab [Active]; Ventolin HFA 90 mcg/actuation Nebulizer HFAA 2 puffs every 4 hours [Active]; aspirin 81 mg Oral TbEC 1 tab once daily [Active]; - PMHx: 18:18 Hyperlipidemia; Hypertension; bp - Immunization history:: Adult Immunizations up to date. - Social history:: Smoking status: Patient denies any tobacco usage or history of. - Ebola Screening: : No symptoms or risks identified at this time. Screenin:21 Abuse screen: Denies threats or abuse. Denies injuries from another. Nutritional bp screening: No deficits noted. Tuberculosis screening: No symptoms or risk factors identified. Fall Risk None identified. Assessment: 18:21 General: SEE TRIAGE NOTE. bp 18:36 Reassessment: EKG AND LABS COMPLETED, PT HYPERTENSIVE ON MONITOR. RESULTS PENDING. bp 19:02 Reassessment: XRAY AT B/S, PT REMAINS SB ON MONITOR. bp 20:11 Reassessment: Patient appears in no apparent distress at this time. Patient and/or sg family updated on plan of care and expected duration. Pain level reassessed. Patient is alert, oriented x 3, equal unlabored respirations, skin warm/dry/pink. pt family at bedside at this time. 20:21 Reassessment: Patient appears in no apparent distress at this time. ultrasound at sg bedside. Vital Signs: 18:18 BP 137 / 88; Pulse 50; Resp 11; Temp 97; Pulse Ox 97% ; Weight 89.81 kg; Height 5 ft. 6 bp in. (167.64 cm); 18:35 BP 175 / 72; Pulse 52; Resp 15; Pulse Ox 96% ; bp 19:03 BP 122 / 76; Pulse 60; Resp 17; Pulse Ox 100% ; bp 18:18 Body Mass Index 31.96 (89.81 kg, 167.64 cm) bp ED Course: 18:09 Patient arrived in ED. bp 18:10 Melvin Ordoñez PA is PHCP. jm 18:10 Rosemary Rutherford MD is Attending Physician. [facility] 18:15 Triage completed. bp 18:19 EKG done, by ED staff, reviewed by Rosemary Rutherford MD. [facility] 18:19 Arm band placed on. bp 18:20 Patient has correct armband on for positive identification. Bed in low position. Call mh5 light in reach. Adult w/ patient. Warm blanket given. child monitor on. Pulse ox on. NIBP on. 18:21 No provider procedures requiring assistance completed. Maintain EMS IV. Dressing bp intact. Good blood return noted. Site clean \T\ dry. Gauge \T\ site: 20 GAUGE R WRIST. Patient maintains SpO2 saturation greater than 95% on room air. 18:23 Ben Edwards, RN is Primary Nurse. bp 18:39 Primary Nurse role handed off by Ben Edwards, RN sg 18:39 Cory Jama, RN is Primary Nurse. sg 19:44 XRAY Chest (1 view) In Process Unspecified. EDMS 20:03 Rosemary Scott MD is Hospitalizing Provider. [facility] 22:00 Patient admitted, IV remains in place. intact, No redness/swelling at site. sg Administered Medications: No medications were administered Outcome: 20:03 Decision to Hospitalize by Provider. [facility] 22:00 Admitted to Tele accompanied by tech, via stretcher, with oxygen, with chart. sg 22:00 Condition: stable 22:00 Instructed on the need for admit, safety practices, Demonstrated understanding of instructions, follow-up care. 22:02 Patient left the ED. sg Signatures: Dispatcher [employer] EDMS Cory Jama, RN RN Melvin Soriano PA PA [place] [facility] Ben Edwards, RN RN bp Corrections: (The following items were deleted from the chart) 21:38 21:15 First set of blood cultures drawn by , ashleigh 21:38 21:15 Missed attempt(s): 22 gauge in right forearm. Bleeding controlled, band aid sg applied, catheter tip intact. 21:38 21:30 Initial lab(s) drawn, by me, sent to lab. Second set of blood cultures drawn by ashleigh ky, 21:38 21:30 Inserted saline lock: 22 gauge in left forearm, using aseptic technique. Blood sg collected. sg
--- NOTE | 2019-11-07 20:04 | EDPHYS ---
Physician Documentation [facility] Name: Sonal Scruggs Age: 69 yrs Sex: Female : 1950 Arrival Date: 11/07/2019 Time: 18:09 Bed 18 Private MD: ED Physician Rosemary Rutherford HPI: 11/07 18:18 This 69 yrs old Female presents to ER via EMS with complaints of Chest Pain. jmm 18:18 The patient or guardian reports chest pain that is located primarily in the substernal [facility] area. Onset: gradually, 2 hour(s) ago. The pain radiates to left back. The chest pain is described as aching, a pressure. Duration: The patient or guardian reports a single episode, that is now resolved. Modifying factors: The symptoms are alleviated by nothing. the symptoms are aggravated by nothing. This is a 69 year old female with no chronic medical conditions that presents to the ED with a history of CAD, HLP, HTN with left sided chest pain beginning 2 hours prior to arrival. Symptoms have improved with nitro and aspirin. . Historical: - Allergies: 18:18 Ciprofloxacin HCl; bp 18:18 Codeine; bp 18:18 Morphine; bp 18:18 PENICILLINS; bp 18:18 TETRACYCLINES; bp 18:18 Azithromycin; bp 18:18 Sulfa (Sulfonamide Antibiotics); bp - Home Meds: 18:18 simvastatin 20 mg Oral tab 1 tab once daily [Active]; metoprolol tartrate 25 mg Oral bp tab 1 tab 2 times per day [Active]; paroxetine HCl 10 mg oral tab 1 tab once daily [Active]; nitroglycerin 0.4 mg SL subl 1 tab every 5 minutes [Active]; lorazepam 1 mg Oral tab [Active]; Ventolin HFA 90 mcg/actuation Nebulizer HFAA 2 puffs every 4 hours [Active]; aspirin 81 mg Oral TbEC 1 tab once daily [Active]; - PMHx: 18:18 Hyperlipidemia; Hypertension; bp - Immunization history:: Adult Immunizations up to date. - Social history:: Smoking status: Patient denies any tobacco usage or history of. - Ebola Screening: : No symptoms or risks identified at this time. ROS: 18:18 Constitutional: Negative for fever, chills, and weight loss. jmm 18:18 Abdomen/GI: Negative for abdominal pain, nausea, vomiting, diarrhea, and constipation. 18:18 Skin: Negative for injury, rash, and discoloration, Neuro: Negative for headache, weakness, numbness, tingling, and seizure. 18:18 Cardiovascular: Positive for chest pain. 18:18 Back: Positive for radiated pain. 18:18 MS/extremity: Positive for pain. 18:18 All other systems are negative. Exam: 18:18 Constitutional: This is a well developed, well nourished patient who is awake, alert, jmm and in no acute distress. Head/Face: atraumatic. Eyes: EOMI, no conjunctival erythema appreciated ENT: Moist Mucus Membranes Neck: Trachea midline, Supple Chest/axilla: Normal chest wall appearance and motion. 18:18 Respiratory: Normal respirations, no respiratory distress appreciated Abdomen/GI: Non distended, soft Back: Normal ROM Skin: General appearance color normal MS/ Extremity: Moves all extremities, no obvious deformities appreciated, no edema noted to the lower extremities Neuro: Awake and alert, normal gait Psych: Behavior is normal, Mood is normal, Patient is cooperative and pleasant 18:18 Cardiovascular: Rate: normal, Rhythm: regular, Pulses: no pulse deficits are appreciated. Vital Signs: 18:18 BP 137 / 88; Pulse 50; Resp 11; Temp 97; Pulse Ox 97% ; Weight 89.81 kg; Height 5 ft. 6 bp in. (167.64 cm); 18:35 BP 175 / 72; Pulse 52; Resp 15; Pulse Ox 96% ; bp 19:03 BP 122 / 76; Pulse 60; Resp 17; Pulse Ox 100% ; bp 18:18 Body Mass Index 31.96 (89.81 kg, 167.64 cm) bp MDM: 18:18 Patient medically screened. [facility] 20:02 The patient was not given aspirin in the Emergency Department. Patient reports taking [facility] aspirin within the past 24 hours. Data reviewed: vital signs, nurses notes, lab test result(s), radiologic studies, plain films. ED course: Dr. Scott contacted in regards to admission. Accepted. 11/07 17: Order name: Basic Metabolic Panel [facility] 11/07 18: Order name: CBC with Diff [facility] 11/07 17: Order name: LFT's [facility] 11/07 17: Order name: Magnesium [facility] 11/07 18:19 Order name: NT PRO-BNP; Complete Time: 19:23 [facility] 11/07 18:19 Order name: PT-INR; Complete Time: 18:49 [facility] 11/07 18:19 Order name: Troponin (emerg Dept Use Only); Complete Time: 19:23 [facility] 11/07 18:19 Order name: XRAY Chest (1 view); Complete Time: 20:02 [facility] 11/07 18:19 Order name: Basic Metabolic Panel; Complete Time: 19:23 [facility] 11/07 18:19 Order name: CBC with Automated Diff; Complete Time: 18:49 [facility] 11/07 18:19 Order name: Liver (Hepatic) Function; Complete Time: 19:23 [facility] 11/07 18:20 Order name: Magnesium; Complete Time: 19:23 [facility] 11/07 20:50 Order name: Lipid Profile [facility] 11/07 20:50 Order name: Lipid Profile [facility] 11/07 18:19 Order name: EKG; Complete Time: 18:20 [facility] 11/07 18:19 Order name: Cardiac monitoring; Complete Time: 18:24 [facility] 11/07 18:19 Order name: EKG - Nurse/Tech; Complete Time: 18:32 [facility] 11/07 18:19 Order name: IV Saline Lock; Complete Time: 18:23 [facility] 11/07 18:19 Order name: Labs collected and sent; Complete Time: 18:32 [facility] 11/07 18:19 Order name: O2 Per Protocol; Complete Time: 18:23 [facility] 11/07 18:19 Order name: O2 Sat Monitoring; Complete Time: 18:24 [facility] 11/07 20:50 Order name: CONS Physician Consult [facility] 11/07 20:50 Order name: Heart Healthy [facility] 11/07 20:50 Order name: Echo with Doppler [facility] 11/07 20:50 Order name: EKG Electrocardiogram [facility] 11/07 20:50 Order name: EKG Electrocardiogram [facility] Administered Medications: No medications were administered Disposition: 11/08 15:54 Co-signature as Attending Physician, Rosemary Rutherford MD. ma2 Disposition: 11/07/19 20:03 Hospitalization ordered by Rosemary Scott for Observation. Preliminary diagnosis is Chest pain, unspecified. - Bed requested for Telemetry/MedSurg (observation). - Status is Observation. sg - Condition is Stable. - Problem is new. - Symptoms are unchanged. UTI on Admission? No Signatures: Dispatcher [employer] EDCory Flores, RN RN sg Melvin Ordoñez PA PA jmm Ballard, Brenda, RN RN Ben Costello, RN RN bp Rosemary Rutherford MD MD ma2 Corrections: (The following items were deleted from the chart) 11/07 21:14 20:03 Hospitalization Ordered by Rosemary Scott MD for Observation. Preliminary bb diagnosis is Chest pain, unspecified. Bed requested for Telemetry/MedSurg (observation). Status is Observation. Condition is Stable. Problem is new. Symptoms are unchanged. UTI on Admission? No. [facility] 22:02 21:14 11/07/2019 20:03 Hospitalization Ordered by Rosemary Scott MD for Observation. Preliminary diagnosis is Chest pain, unspecified. Bed requested for Telemetry/MedSurg (observation). Status is Observation. Condition is Stable. Problem is new. Symptoms are unchanged. UTI on Admission? No. bb
[2019-11-07] MEDS ORDERED: ACETAMINOPHEN 500 MG TAB PO PRN (20:48)
[2019-11-07] MEDS ORDERED: MORPHINE 4 MG/ML SYR IV PRN (20:48)
[2019-11-07] MEDS ORDERED: ALPRAZOLAM 0.25 MG TABLET PO PRN (20:48)
[2019-11-07 22:23] VITALS: BMI 31.6
[2019-11-07] MEDS: METOPROLOL TAR 50 MG TAB PO SCH (22:31)
[2019-11-08 05:04] LABS: Urine Appearance CLEAR; Urine Bilirubin NEGATIVE (NEG); Urine Blood NEGATIVE (NEG); Urine Color YELLOW; Urine Glucose NEGATIVE (NEG); Urine Protein NEGATIVE (NEG); Urine Urobilinogen 0.2 mg/dL (0.2-1.0)
[2019-11-08 05:06] LABS: Urine Microscopic Reflex ORDER UMIC
[2019-11-08 05:48] LABS: Urine Bacteria <20 /HPF (<20); Urine Culture Reflex Order REFLEXED; Urine RBC <5 /HPF (NONE SEEN)
[2019-11-08] MEDS: METOPROLOL TAR 50 MG TAB PO SCH (08:22)
--- NOTE | 2019-11-08 08:47 | EKG ---
Test Date: 2019-11-07 Test Time: 18:31:33 [employer]: KALIN MEASUREMENT RESULTS: Intervals: Rate: 48 [place]: 130 QRSD: 90 QT: 460 QTc: 410 [place]: P: 68 [place]: 130 QRS: 68 T: 58 INTERPRETIVE STATEMENTS: Sinus bradycardia Possible Left atrial enlargement Borderline ECG Compared to ECG 07/04/2019 13:25:13 Sinus rhythm no longer present ST (T wave) deviation no longer present Electronically Signed On 11-08-19 08:46:47 COMMUNICATIONS SCIENTIST by Emmanuel Felder
[2019-11-08] MEDS ORDERED: ENOXAPARIN 40 MG/0.4 ML SQ SCH (09:00)
[2019-11-08] MEDS ORDERED: ASPIRIN EC 81 MG TAB PO SCH (09:00)
[2019-11-08] MEDS ORDERED: CLOPIDOGREL 75 MG TABLET PO SCH (09:00)
--- NOTE | 2019-11-08 09:28 | P.HP ---
Certification for Inpatient Patient admitted to: Observation With expected LOS: <2 Midnights Patient will require the following post-hospital care: None Practitioner: I am a practitioner with admitting privileges, knowledge of patient current condition, hospital course, and medical plan of care. Services: Services provided to patient in accordance with Admission requirements found in Title 42 Section 412.3 of the Code of Federal Regulations Patient History Date of Service: 11/07/19 Reason for admission: Chest pain rule out acute coronary syndrome History of Present Illness: Patient is a 69-year-old female came to the hospital chest discomfort. Pain was mainly in sternal region. Patient had pain ever radiate down her left arm. She has had a prior acute myocardial infarction with stent placement. She also was told on her last cardiac catheterization then she may need a stent in a few years that she had some coronary arteries that were atherosclerotic. At this time will admit her to the hospital for serial troponins and EKG. If her next is troponin is negative then will proceed with stress test. Cardiology consultation as well as patient does not have a etl programmer in the local area.. Allergies cameron Allergy (Severe, Verified 11/07/19 22:49) Hives azithromycin [From Zithromax] Allergy (Verified 12/09/11 12:53) Hives ciprofloxacin [From Cipro] Allergy (Verified 12/09/11 12:53) Hives ciprofloxacin HCl [From Cipro] Allergy (Verified 12/09/11 12:53) Hives morphine Allergy (Verified 11/07/19 22:46) Hives Penicillins Allergy (Verified 12/09/11 12:53) Hives Sulfa (Sulfonamide Antibiotics) Allergy (Verified 11/07/19 22:47) Hives tetracycline [Tetracycline] Allergy (Verified 12/09/11 12:53) Hives codeine [Codeine] Adverse Reaction (Intermediate, Verified 05/27/12 07:53) hallucinations flu vaccine Adverse Reaction (Severe, Uncoded 11/07/19 22:49) confusion Home Medications: Albuterol Inhaler [Ventolin Inhaler*] 2 puff IH PRN PRN 11/08/19 Albuterol Neb [Proventil 0.083% Neb Soln] 1 vial IH BID PRN 11/08/19 Aspirin Chewable [Aspirin Chewable*] 1 tab PO DAILY 11/08/19 LORazepam [Lorazepam] 1 tab PO DAILYPRN PRN 11/08/19 Metoprolol Tartrate 1 tab PO BID 11/08/19 Multivitamin [Multivitamins] 1 tab PO DAILY 11/08/19 Nitroglycerin [Nitrostat*] 1 tab SL PRN 11/08/19 PARoxetine HCl [Paroxetine HCl] 10 mg PO DAILY 11/08/19 Simvastatin 1 tab PO BEDTIME 11/08/19 - Past Medical/Surgical History Has patient received pneumonia vaccine in the past: Yes Diabetic: No -: COPD -: HTN -: asthma -: HLD -: mini stroke (2012) -: DVT left leg -: bladder sling X2 -: kidney surgery -: hysterectomy -: tubal igation -: heart stent (2012) - Family History Father Medical History: Heart disease, Cancer, Kidney disease Notes: prostate. esrd Mother Medical History: Cancer Notes: lymph node CA - Social History Smoking Status: Former smoker Alcohol use: Yes CD- Drugs: No Caffeine use: Yes Place of Residence: Home Review of Systems 10-point ROS is otherwise unremarkable Physical Examination - Vital Signs Temperature: 97.1 F Blood Pressure: 157/70 Pulse: 58 Respirations: 16 Pulse Ox (%): 97 - Physical Exam General: Alert, In no apparent distress, Oriented x3 HEENT: Atraumatic, PERRLA, Mucous membr. moist/pink, EOMI, Sclerae nonicteric Neck: Supple, 2+ carotid pulse no bruit, No LAD, Without JVD or thyroid abnormality Respiratory: Clear to auscultation bilaterally, Normal air movement Cardiovascular: Regular rate/rhythm, Normal S1 S2, No murmurs Gastrointestinal: Normal bowel sounds, Soft and benign, Non-distended, No tenderness Musculoskeletal: No clubbing, No swelling, No tenderness Integumentary: No rashes Neurological: Normal gait, Normal speech, Normal strength at 5/5 x4 extr, Normal tone, Sensation intact, Cranial nerves 3-12 intact, Normal affect Lymphatics: No axilla or inguinal lymphadenopathy - Studies Laboratory Data (last 24 hrs) 11/07/19 18:30: PT 10.8, INR 0.91 11/07/19 18:30: WBC 3.9 L, Hgb 12.3, Hct 37.7, Plt Count 115 L 11/07/19 18:30: Sodium 143, Potassium 3.9, BUN 26 H, Creatinine 0.97, Glucose 97 , Magnesium 2.5 H, Total Bilirubin 0.5, AST 22, ALT 25, Alkaline Phosphatase 65 Assessment & Plan - Problems (Diagnosis) (1) Chest pain, rule out acute myocardial infarction Current Visit: Yes Status: Acute (2) Coronary artery disease Current Visit: Yes Status: Acute (3) History of coronary artery stent placement Current Visit: Yes Status: Acute (4) Coronary angioplasty status Current Visit: No Status: Acute - Plan 1. Serial troponins and EKG 2. Cardiology consultation; patient does have a etl programmer in the local area and would prefer to get the history care down here 3. Echocardiogram and stress test 4. Anti-platelet therapy, anti coagulation, beta-dee, statin, and O2 as needed 5. IV morphine for pain 6. Nitro p.r.n. 7. If her workup is negative then possible discharge home later tomorrow Discharge Plan: Home Plan to discharge in: 24 Hours - Advance Directives Does patient have a Living Will: No Does patient have a Durable POA for Healthcare: No - Code Status/Comfort Care Code Status Assessed: Yes Code Status: Full Code Critical Care: No Time Spent Managing PTS Care (In Minutes): 40
--- NOTE | 2019-11-08 09:31 | P.DS ---
Discharge Date: 11/08/19 Disposition: ROUTINE DISCHARGE Discharge Condition: GOOD Reason for Admission: Chest pain rule out acute coronary syndrome Consultations: Cardiology - Problems (1) Chest pain, rule out acute myocardial infarction Status: Acute (2) Coronary artery disease Status: Acute (3) History of coronary artery stent placement Status: Acute (4) Coronary angioplasty status Status: Acute Brief History of Present Illness: Patient is a 69-year-old female came to the hospital chest discomfort. Pain was mainly in sternal region. Patient had pain ever radiate down her left arm. She has had a prior acute myocardial infarction with stent placement. She also was told on her last cardiac catheterization then she may need a stent in a few years that she had some coronary arteries that were atherosclerotic. At this time will admit her to the hospital for serial troponins and EKG. If her next is troponin is negative then will proceed with stress test. Cardiology consultation as well as patient does not have a pet care attendant in the local area.. Hospital Course: Patient's stress test was unremarkable. Patient's echocardiogram did not reveal any significant abnormalities. This time patient is stable for discharge home. Vital Signs/Physical Exam: Temp Pulse Resp BP Pulse Ox 97.1 F 58 16 157/70 H 97 11/08/19 09:28 11/08/19 09:28 11/08/19 09:28 11/08/19 09:28 11/08/19 09:28 General: Alert, In no apparent distress, Oriented x3 Laboratory Data at Discharge: WBC 3.9 K/uL (4.3-10.9) L 11/07/19 18:30 Hgb 12.3 g/dL (12.0-15.0) 11/07/19 18:30 Hct 37.7 % (36.0-45.0) 11/07/19 18:30 Plt Count 115 K/uL (152-406) L 11/07/19 18:30 PT 10.8 SECONDS (9.5-12.5) 11/07/19 18:30 INR 0.91 11/07/19 18:30 Sodium 143 mmol/L (136-145) 11/07/19 18:30 Potassium 3.9 mmol/L (3.5-5.1) 11/07/19 18:30 BUN 26 mg/dL (7-18) H 11/07/19 18:30 Creatinine 0.97 mg/dL (0.55-1.3) 11/07/19 18:30 Glucose 97 mg/dL (74-106) 11/07/19 18:30 Magnesium 2.5 mg/dL (1.8-2.4) H 11/07/19 18:30 Total Bilirubin 0.5 mg/dL (0.2-1.0) 11/07/19 18:30 AST 22 U/L (15-37) 11/07/19 18:30 ALT 25 U/L (12-78) 11/07/19 18:30 Alkaline Phosphatase 65 U/L (45-117) 11/07/19 18:30 Troponin I < 0.02 ng/mL (0.0-0.045) 11/08/19 05:31 Triglycerides 169 mg/dL (<150) H 11/08/19 05:31 Cholesterol 218 mg/dL (<200) H 11/08/19 05:31 HDL Cholesterol 62 mg/dL (40-60) H 11/08/19 05:31 Cholesterol/HDL Ratio 3.52 11/08/19 05:31 Home Medications: Albuterol Inhaler [Ventolin Inhaler*] 2 puff IH PRN PRN 11/08/19 Albuterol Neb [Proventil 0.083% Neb Soln] 1 vial IH BID PRN 11/08/19 Aspirin Chewable [Aspirin Chewable*] 1 tab PO DAILY 11/08/19 LORazepam [Lorazepam] 1 tab PO DAILYPRN PRN 11/08/19 Metoprolol Tartrate 1 tab PO BID 11/08/19 Multivitamin [Multivitamins] 1 tab PO DAILY 11/08/19 Nitroglycerin [Nitrostat*] 1 tab SL PRN 11/08/19 PARoxetine HCl [Paroxetine HCl] 10 mg PO DAILY 11/08/19 Simvastatin 1 tab PO BEDTIME 11/08/19 Patient Discharge Instructions: OK TO DC IV AND DC HOME. FOLLOW-UP WITH PRIMARY CARE PROVIDER IN 1-2 WEEKS. FOLLOW-UP WITH CARDIOLOGY IN 1-2 WEEKS. RETURN TO THE ER IF symptoms worsened. CALL or TEXT DR. PEARCE AT [phone] IF ANY QUESTIONS REGARDING HOSPITAL STAY. PLEASE CALL THE FLOOR AT [phone] IF ANY MEDICATION OR NURSING QUESTIONS. Diet: AHA Activity: Ad ron Followup: [facility] [Provider Group] - 1-2 Weeks (Call to schedule an appointment) [facility] [OUTSIDE PHYSICIAN] - 1-2 Weeks (Primary care physician- call to schedule an appointment) Time spent managing pt's care (in minutes): 20
[2019-11-08] MEDS ORDERED: REGADENOSON 0.4 MG/5 ML SYR IV ONE (09:47)
--- NOTE | 2019-11-08 11:47 | CON ---
History Of Present Illness: Mrs. Scruggs is 69. She came to the hospital with chest pain that occurr ed at 4 in the afternoon. An ambulance was called at 5. Since she has been in the hospital, EKGs an d enzymes were normal. Mrs. Scruggs has a history of intracoronary stent in an obtuse marginal in 201 4. Since then, she has had routine followup stays on the appropriate secondary prevention medicines. Has not had any further events or hospitalizations. She was a tobacco user, but quit about 8 years ago. She has underlying COPD, hypertension, dyslipidemia. Home Medications: Simvastatin, paroxetine, nitroglycerin, multivitamin, metoprolol, lorazepam, aspir in, albuterol nebulizer and an albuterol puffer. Allergies: SHE IS ALLERGIC TO LYUBOV, AZITHROMYCIN, AND CIPRO. Physical Examination: General: She is 5 feet 6 inches, 195 pounds. Alert, oriented, pleasant. Lungs: Clear. Heart: Normal. Neck: No carotid bruit. Abdomen: No abdominal bruit. Extremities: Distal pulses are palpable and normal. Diagnostic Studies: Electrocardiogram does not show infarction, injury, or ischemia. Impression: This is probably noncardiac chest pain. She is already scheduled to have an echo and nu clear stress test. If those are normal, she can be discharged with abnormal stress and cardiac catheterization. ANDREINA/CAITLYN Voice ID: [id number] Report ID: [id number]
--- NOTE | 2019-11-08 13:17 | RAD REPORT ---
EXAM DESCRIPTION: NM - Rest Stress Cardiac Imaging - 11/08/2019 1:07 pm CLINICAL HISTORY: CP Chest pain. COMPARISON: REST STRESS CARDIAC dated 12/29/2013 TECHNIQUE: The patient was administered approximately 10mCi of Tc 99m Sestamibi prior to resting SPE CT imaging of the heart. The patient was then administered approximately 30 mCi of Tc 99m Sestamibi f ollowing exercise or pharmacologic stress. Multiplanar SPECT images were reviewed. FINDINGS: No stress induced ischemic defect is seen to suggest stress induced ischemia. No fixed def ect is seen to suggest hibernating myocardium or scarred myocardium. The end diastolic volume is 91 ml, the end systolic volume is 30 ml, and the ejection fraction is 68 %. IMPRESSION: No stress induced ischemia.
--- NOTE | 2019-11-08 14:51 | TREADPHA ---
DX: CHEST PAIN Date of Study: 11/08/2019 Ht: 5 6 Wt: 195 lb 11.2 oz Consulting Physician: SANDRA MEDICATIONS: TYLENOL, XANAX, ASPIRIN, LOVENOX, LOPRESSOR, PLAVIX, LIPITOR HISTORY: 69 YEAR OLD FEMALE WITH A HISTORY OF HYPERTENSION, CHRONIC OBSTRUCTIVE PULMONARY DISEASE, CHIEF COMPLAINT OF LEFT CHEST WALL PAIN RADIATING TO LEFT ARM AND NECK. DENIES CHEST PAIN AT THIS TIME. PHYSICIAL EXAMINATION: RESTING B.P.: 166/78 RESTING H.R.: 57 RESTING EKG: NORMAL. PROTOCOL: LEXISCAN EXERCISE TIME: 3:30 B.P. AT PEAK STRESS: 144/119 IMPRESSION: LEXISCAN STRESS TEST PERFORMED. CARDIOLITE INJECTED PER PROTOCOL. NO SUPRA VENTRICULAR TACHYCARDIA, NO VENTRICULAR TACHYCARDIA, NO ARRHYTHMIAS NOTED. PATIENT DENIED CHEST PAIN. PATIENT TOLERATED WELL. PLEASE SEE NUCLEAR MEDICINE REPORT. NON DIAGNOSTIC EKG WITH LEXISCAN STRESS.
[2019-11-08 15:57] VITALS: O2SAT 98
[2019-11-08 16:13] VITALS: BP 135/64; TEMP 97.7
[2019-11-08] MEDS ORDERED: ATORVASTATIN 20 MG TAB PO SCH (21:00)
--- NOTE | 2019-11-09 10:14 | ECHO ---
HEIGHT: 5 ft 6 in WEIGHT: 195 lb 11.2 oz DATE OF STUDY: 11/08/[address]: Rosemary Scott MD 2-DIMENSIONAL: YES M.MODE: YES DOPPLER: YES COLOR FLOW: YES TDS: NO PORTABLE: NO DEFINITY: NO BUBBLE STUDY: NO DIAGNOSIS: CHEST PAIN CARDIAC HISTORY: CATHERIZATION: YES SURGERY: NO PROSTHETIC VALVE: NO PACEMAKER: NO MEASUREMENTS (cm) DIASTOLIC (NORMALS) SYSTOLIC (NORMALS) IVSd 1.0 (0.6-1.2) LA Diam 3.2 (1.9-4.0) LVEF 78% LVIDd 4.5 (3.5-5.7) LVIDs 2.4 (2.0-3.5) %FS 47% LVPWd 1.2 (0.6-1.2) Ao Diam 2.9 (2.0-3.7) 2 DIMENSIONAL ASSESSMENT: RIGHT ATRIUM: NORMAL LEFT ATRIUM: NORMAL RIGHT VENTRICLE: NORMAL LEFT VENTRICLE: NORMAL TRICUSPID VALVE: NORMAL MITRAL VALVE: MITRAL ANNULAR CALCIFICATION PULMONIC VALVE: NORMAL AORTIC VALVE: NORMAL PERICARDIAL EFFUSION: NONE AORTIC ROOT: NORMAL LEFT VENTRICULAR WALL MOTION: NORMAL DOPPLER/COLOR FLOW: TRACE TRICUSPID REGURGITATION. NORMAL RIGHT VENTRICULAR SYSTOLIC PRESSURE. COMMENTS: NORMAL LEFT VENTRICULAR EJECTION FRACTION. MITRAL ANNULAR CALCIFICATION. TRACE TRICUSPID REGURGITATION. TECHNOLOGIST: Jazlyn OLIVIER
== END 2019-11-08 17:30 | disposition home or self-care (01) ==
LOC: ER 18:05 → ERHOLD 20:48 → 4TH 21:52
PROVIDERS: ADMIT Hospitalist; ATTEND Hospitalist
DX: R07.9 Chest pain, unspecified (principal); I25.10 Atherosclerotic heart disease of native coronary artery without angina pectoris; Z95.5 Presence of coronary angioplasty implant and graft; Z88.0 Allergy status to penicillin; Z86.73 Personal history of transient ischemic attack (TIA), and cerebral infarction without residual deficits
CPT/HCPCS: 93005; 93017; 93306; 87088; 85025; 80048; 36415; 83735; 85610; 80061; 80076; 84484 ×2; 83880; 71045; 78452; 99285; J1650; J2785; A9500; G0378 ×2; 81003; 81015; 87086

== ENCOUNTER 2020-03-06 09:58 | Emergency (ER) | payer OTHER ==
[2020-03-06] MEDS ORDERED: NA CHLORIDE 0.9% 500 ML ONE (10:44)
[2020-03-06 11:01] LABS: Absolute Lymphocytes (CBC) 1.4 K/uL (0.7-4.9); Basophils % 0.4 % (0-1.3); Hematocrit 36.3 % (36.0-45.0); Lymphocytes % 32.9 % (15.3-44.8); MPV 11.5 fL (7.6-11.3); RBC Red Blood Cell Count 4.08 M/uL (3.86-4.86)
--- OUTSIDE RECORDS SUMMARY | 2020-03-06 11:37 | XMS REPORT ---
:1950 Author Organization [facility] t Address [address] [place] [address] Care Team Providers Name Role Phone Dwayne Attending Clinician Unavailable Problems This patient has no known problems. Allergies, Adverse Reactions, Alerts This patient has no known allergies or adverse reactions. Medications This patient has no known medications. Procedures This patient has no known procedures. Results Test Description Test Time Test Comments Results Result [facility] e Comments [id number] SURGICAL 2017-02-26 PATHOLOGY, LEVEL 11:54:00 [place] [address] Laboratory Printed: 02/26/17 1155 [facility] DAEMPathology Page: 1 Patient: EUSEBIA ZAVALETA Birthdate: 1950 Age/Sex: 66/F Spec#: [id number]: Claire Rice Specimen Date: 02/24/17 Received Date: 02/25/17 Specimen: SKIN CLINICAL DIAGNOSIS L98.9 PATHOLOGIC DIAGNOSIS Skin, abdomen, excision: - Irritated, inflamed seborrheic keratosis. - No dysplasia or malignancy identified. Pathologist:Jayson Cowan MD Entered by:02/26/17 - 1144 LAB.YGP ------- PROCEDURES: [id number] GROSS DESCRIPTION A. SKIN ABDOMEN The specimen [...] code:A1 - ends Patient: EUSEBIA ZAVALETA Re02/24/17Loc: [facility] MR#: [id number] CONTINUED ON NEXT PAGE Dis: Sta: DEP CLI [address] [address] Laboratory Printed: 02/26/[address] [place] [address] DAEMPathology Page: 2 Patient: EUSEBIA ZAVALETA [id number] (Continued) GROSS DESCRIPTION (Continued) A2 - cross sections Dictated by: Vidhi Varela Entered by: 02/25/17 - 1133 [facility].YGP MICROSCOPIC DESCRIPTION A microscopic examination was performed to arrive at the diagnostic conclusion reported. Signed (Electronically Signed) Jayson Cowan MD 02/26/17 Patient: EUSEBIA ZAVALETA Re02/24/17Loc: [facility] MR#: [id number] END OF REPORT Dis: Sta: DEP CLI
--- NOTE | 2020-03-06 12:05 | RAD REPORT ---
EXAM DESCRIPTION: RAD - Chest Single View - 03/06/2020 10:58 am CLINICAL HISTORY: Cough;COPD COMPARISON: Portable November 07, 2019 TECHNIQUE: AP portable chest image was obtained 03/06/2020 10:58 am . FINDINGS: No focal lung parenchymal process. Interstitial pattern matches comparison. Heart and vasc ulature are normal. No measurable pleural effusion and no pneumothorax. No acute bony abnormality see n. No acute aortic findings suspected. IMPRESSION: No acute cardiopulmonary process. No significant change from comparison.
--- NOTE | 2020-03-06 12:27 | ER ---
Nurse's Notes [facility] Name: Sonal Scruggs Age: 70 yrs Sex: Female : 1950 Arrival Date: 03/06/2020 Time: 10:06 Bed 16 Private MD: Diagnosis: Chronic obstructive pulmonary disease with (acute) exacerbation Presentation: 03/06 10:01 Chief complaint: Patient states: Was cleaning the apartment this morning and began having SOB. EMS states she was in tripod position upon arrival. O2 sats were 98% but did not have a lot of air moving in upper lobes. BG 123. 125mg solumedrol enroute, also albuterol and atrovent. Coronavirus screen: Proceed with normal triage. Patient denies a cough. Patient reports shortness of breath or difficulty breathing. Patient denies shortness of breath or difficulty breathing. Patient denies measured and/or subjective temperature greater than 100.4F prior to today's visit. Patient denies travel on a cruise ship or to a country the [facility] currently lists as an affected area. Patient denies contact with known and/or suspected case of COVID-19. Ebola Screen: No symptoms or risks identified at this time. Initial Sepsis Screen: Does the patient meet any 2 criteria? No. Patient's initial sepsis screen is negative. Does the patient have a suspected source of infection? No. Patient's initial sepsis screen is negative. Risk Assessment: Do you want to hurt yourself or someone else? Patient reports no desire to harm self or others. Onset of symptoms. 10:01 Method Of Arrival: EMS: [facility] 10:01 Acuity: CONY 3 10:13 Care prior to arrival: Medication(s) given: Albuterol Neb x 2, Atrovent Neb x 1, solumedrol 125 IV initiated. 18 GA, in the right antecubital area, Glucose check: 123 Med neb given. Oxygen administered. Historical: - Allergies: 10:17 Azithromycin; 10:17 Ciprofloxacin HCl; 10:17 Codeine; 10:17 Morphine; 10:17 PENICILLINS; 10:17 Sulfa (Sulfonamide Antibiotics); 10:17 TETRACYCLINES; - PMHx: 10:17 Hyperlipidemia; Hypertension; COPD; Myocardial infarction; - PSHx: 10:17 Heart stents; - Immunization history:: Adult Immunizations up to date, allergic to Flu vaccination. - Social history:: Smoking status: Patient denies any tobacco usage or history of. Patient uses alcohol, occasionally. - Family history:: not pertinent. - Hospitalizations: : No recent hospitalization is reported. Screenin:53 Abuse screen: Denies threats or abuse. Nutritional screening: No deficits noted. Tuberculosis screening: No symptoms or risk factors identified. Fall Risk None identified. Assessment: 10:20 General: Appears in no apparent distress. Behavior is calm, cooperative, appropriate ah for age. Pain: Denies pain. Neuro: Level of Consciousness is awake, alert, Oriented to person, place, time, situation. Cardiovascular: Denies chest pain, Heart tones S1 S2 present Capillary refill < 3 seconds Patient's skin is warm and dry. Pulses are palpable in right radial artery and left radial artery Rhythm is sinus rhythm. Respiratory: Airway is patent Respiratory effort is even, unlabored, Respiratory pattern is regular, symmetrical, Breath sounds are diminished bilaterally. the patient has mild shortness of breath. GI: Bowel sounds present X 4 quads. Abd is soft and non tender. : No signs and/or symptoms were reported regarding the genitourinary system. EENT: No signs and/or symptoms were reported regarding the EENT system. Derm: No signs and/or symptoms reported regarding the dermatologic system. Musculoskeletal: No signs and/or symptoms reported regarding the musculoskeletal system. 11:20 Reassessment: No needs voiced at this time. Awaiting results. 12:45 Reassessment: Discharge instructions given to Pt. Educated on prescriptions and pt ah voiced understanding. Vital Signs: 10:01 BP 90 / 69; Pulse 70; Resp 20; Pulse Ox 100% ; Weight 86.18 kg; Height 5 ft. 7 in. (170.18 cm); 10:15 BP 112 / 64; Pulse 72; Resp 16; Pulse Ox 97% ; ah 11:00 BP 137 / 69; Pulse 72; Resp 17; Temp 98.2; Pulse Ox 96% ; ah 11:45 BP 130 / 57; Pulse 70; Resp 18; Pulse Ox 99% ; ah 12:30 BP 148 / 76; Pulse 71; Resp 16; Pulse Ox 97% ; 10:01 Body Mass Index 29.76 (86.18 kg, 170.18 cm) ED Course: 10:00 Maintain EMS IV. Dressing intact. Good blood return noted. Site clean \T\ dry. 10:06 Patient arrived in ED. 10:07 Radha Felder, RN is Primary Nurse. 10:13 Triage completed. 10:15 Satnam Taylor MD is Attending Physician. rn 10:59 XRAY Chest (1 view) In Process Unspecified. EDMS 12:54 No provider procedures requiring assistance completed. 12:55 IV discontinued, intact, bleeding controlled, No redness/swelling at site. Pressure dressing applied. 12:55 Patient has correct armband on for positive identification. Bed in low position. Call light in reach. Side rails up X 1. 12:57 Arm band placed on. Administered Medications: 10:45 Drug: NS 0.9% 500 ml Route: IV; Rate: bolus; Site: right antecubital; 12:57 Follow up: Response: No adverse reaction; IV Status: Completed infusion Outcome: 12:27 Discharge ordered by . rn 12:53 Discharged to home ambulatory. 12:53 Condition: good 12:53 Discharge instructions given to patient, Instructed on discharge instructions, follow up and referral plans. medication usage, Demonstrated understanding of instructions, follow-up care, medications, Prescriptions given X 3. 12:58 Patient left the ED. Signatures: Dispatcher [employer] EDSatnam Hamlin MD MD rn Harris, Amy, RN RN
--- NOTE | 2020-03-06 12:28 | EDPHYS ---
Physician Documentation [facility] Name: Sonal Scruggs Age: 70 yrs Sex: Female : 1950 Arrival Date: 03/06/2020 Time: 10:06 Bed 16 Private MD: ED Physician Satnam Taylor HPI: 03/06 10:49 This 70 yrs old Female presents to ER via EMS with complaints of sob. rn 10:49 The patient has shortness of breath at rest, with light activity. Onset: The rn symptoms/episode began/occurred this morning. Duration: The symptoms are continuous. The patient's shortness of breath is alleviated by nebulizer treatment. Severity of symptoms: At their worst the symptoms were moderate in the emergency department the symptoms have improved. The patient has experienced similar episodes in the past. The patient has not recently seen a physician. Historical: - Allergies: 10:17 Azithromycin; ah 10:17 Ciprofloxacin HCl; ah 10:17 Codeine; ah 10:17 Morphine; ah 10:17 PENICILLINS; ah 10:17 Sulfa (Sulfonamide Antibiotics); ah 10:17 TETRACYCLINES; ah - PMHx: 10:17 Hyperlipidemia; Hypertension; COPD; Myocardial infarction; ah - PSHx: 10:17 Heart stents; ah - Immunization history:: Adult Immunizations up to date, allergic to Flu vaccination. - Social history:: Smoking status: Patient denies any tobacco usage or history of. Patient uses alcohol, occasionally. - Family history:: not pertinent. - Hospitalizations: : No recent hospitalization is reported. ROS: 10:49 Constitutional: Negative for fever, chills, and weight loss, Eyes: Negative for injury, rn pain, redness, and discharge, Neck: Negative for injury, pain, and swelling, Cardiovascular: Negative for chest pain, palpitations, and edema, Respiratory: Negative for pleuritic chest pain, Abdomen/GI: Negative for abdominal pain, nausea, vomiting, diarrhea, and constipation, MS/Extremity: Negative for injury and deformity, Skin: Negative for injury, rash, and discoloration, Neuro: Negative for headache, weakness, numbness, tingling, and seizure. Exam: 10:49 Constitutional: This is a well developed, well nourished patient who is awake, alert, rn and in no acute distress. Head/Face: Normocephalic, atraumatic. ENT: Dry mm, no stridor Cardiovascular: Regular rate and rhythm. No pulse deficits. Respiratory: Speaking full unlabored sentences. Mild wheezing. No increased work of breathing, no retractions or nasal flaring. Abdomen/GI: soft, non-tender Skin: Warm, dry MS/ Extremity: Pulses equal, no cyanosis. Neurovascular intact. Full, normal range of motion. Equal circumference. Neuro: Awake and alert, GCS 15, oriented to person, place, time, and situation. Motor strength 5/5 in all extremities. Sensory grossly intact. Vital Signs: 10:01 BP 90 / 69; Pulse 70; Resp 20; Pulse Ox 100% ; Weight 86.18 kg; Height 5 ft. 7 in. (170.18 cm); 10:15 BP 112 / 64; Pulse 72; Resp 16; Pulse Ox 97% ; ah 11:00 BP 137 / 69; Pulse 72; Resp 17; Temp 98.2; Pulse Ox 96% ; 11:45 BP 130 / 57; Pulse 70; Resp 18; Pulse Ox 99% ; ah 12:30 BP 148 / 76; Pulse 71; Resp 16; Pulse Ox 97% ; ah 10:01 Body Mass Index 29.76 (86.18 kg, 170.18 cm) MDM: 10:15 Patient medically screened. rn 12:26 Differential diagnosis: Chronic Obstructive Pulmonary Disease pneumonia, Pneumothorax. rn Data reviewed: vital signs, nurses notes, lab test result(s), EKG, radiologic studies, plain films, and as a result, I will discharge patient. Test interpretation: by ED physician or midlevel provider: ECG, plain radiologic studies, CXR neg for pneumonia. Counseling: I had a detailed discussion with the patient and/or guardian regarding: the historical points, exam findings, and any diagnostic results supporting the discharge/admit diagnosis, lab results, radiology results, the need for outpatient follow up, to return to the emergency department if symptoms worsen or persist or if there are any questions or concerns that arise at home. Response to treatment: the patient's symptoms have markedly improved after treatment, and as a result, I will discharge patient. Special discussion: I discussed with the patient/guardian in detail that at this point there is no indication for admission to the hospital. It is understood, however, that if the symptoms persist or worsen the patient needs to return immediately for re-evaluation. Based on the history and exam findings, there is no indication for further emergent testing or inpatient evaluation. I discussed with the patient/guardian the need to see the primary care provider for further evaluation of the symptoms. ED course: Pt improved, would like to go home, will dc home with steroids and continuation of inhaler. . 03/06 10:24 Order name: CBC with Diff; Complete Time: 12:11 rn 03/06 10:24 Order name: Basic Metabolic Panel; Complete Time: 12:11 rn 03/06 10:24 Order name: Procalcitonin; Complete Time: 12:11 rn 03/06 10:24 Order name: Flu; Complete Time: 12:11 rn 03/06 10:24 Order name: Strep; Complete Time: 12:11 rn 03/06 11:14 Order name: Throat Culture [facility] 03/06 10:24 Order name: IV Start; Complete Time: 11:53 rn 03/06 10:24 Order name: XRAY Chest (1 view); Complete Time: 12:11 rn Administered Medications: 10:45 Drug: NS 0.9% 500 ml Route: IV; Rate: bolus; Site: right antecubital; 12:57 Follow up: Response: No adverse reaction; IV Status: Completed infusion Disposition: 03/06/20 12:27 Discharged to Home. Impression: Chronic obstructive pulmonary disease with (acute) exacerbation. - Condition is Stable. - Discharge Instructions: Chronic Obstructive Pulmonary Disease Exacerbation. - Prescriptions for Prednisone 20 mg Oral Tablet - take 3 tablet by ORAL route once daily for 5 days; 15 tablet. Albuterol Sulfate 90 mcg/actuation - inhale 1-2 puff by INHALATION route every 4-6 hours; 1 Inhaler. Albuterol Sulfate 2.5 mg /3 mL (0.083 %) Inhalation Solution for Nebulization - inhale 1 unit by NEBULIZATION route every 8 hours As needed; 1 box. - Medication Reconciliation Form, Thank You Letter, Antibiotic Education, Prescription Opioid Use form. - Follow up: Private Physician; When: As needed; Reason: Recheck today's complaints, Re-evaluation by your physician. - Problem is an acute exacerbation. - Symptoms have improved. Signatures: Dispatcher [employer] [facility] Satnam Taylor MD MD rn Harris, Amy, RN RN Corrections: (The following items were deleted from the chart) 12:58 12:27 03/06/2020 12:27 Discharged to Home. Impression: Chronic obstructive pulmonary ah disease with (acute) exacerbation. Condition is Stable. Forms are Medication Reconciliation Form, Thank You Letter, Antibiotic Education, Prescription Opioid Use. Follow up: Private Physician; When: As needed; Reason: Recheck today's complaints, Re-evaluation by your physician. Problem is an acute exacerbation. Symptoms have improved. rn
== END 2020-03-06 12:58 | disposition home or self-care (01) ==
LOC: ER 09:58
DX: J44.1 Chronic obstructive pulmonary disease with (acute) exacerbation (principal); Z88.1 Allergy status to other antibiotic agents; Z88.2 Allergy status to sulfonamides; Z88.0 Allergy status to penicillin; Z88.3 Allergy status to other anti-infective agents
CPT/HCPCS: 96361; 87070; 85025; 80048; 36415; 87081; 84145; 87804 ×2; 71045; 96360; 99284; J7040

== ENCOUNTER 2022-01-19 19:00 | Observation (INO) | payer OTHER ==
--- OUTSIDE RECORDS SUMMARY | 2022-01-19 19:02 | XMS REPORT | Continuity of Care Document ---
:1950 Author Organization [facility] t Address [facility] [place] [address] Care Team Providers Name Role Phone Dwayne Attending Clinician Unavailable Problems This patient has no known problems. Allergies, Adverse Reactions, Alerts This patient has no known allergies or adverse reactions. Medications This patient has no known medications. Immunizations Ordered Immunization Filled Immunization Date Status Commen ts Source Name Name Moderna COVID-19 Moderna COVID-19 2021-07-05 Completed Vaccine Vaccine 00:00:00 Moderna COVID-19 Moderna COVID-19 2021-06-11 Completed Vaccine Vaccine 00:00:00 Procedures This patient has no known procedures. Encounters Start End Encounter Admission Attending Care Care Encounter Source Date/Time Date/Time Type Type Clinicians Facility Department ID 2021-07-05 2021-07-05 Outpatient [facility] [id number] [facility] 00:00:00 00:00:00 V 2021-06-11 2021-06-11 Outpatient [facility] [id number] [facility] 00:00:00 00:00:00 V Results Test Description Test Time Test Comments Results Result Comments Source SARS-CoV-2 (COVID-19), RT-PCR/TMA 2021-11-16 10:18:51 Test Item Value Reference Range Interpretation Comme nts SARS-CoV-2 INTERPRETATION NEGATIVE SEE NOTE S ARS-CoV-2 RNA NOT (test code = 70892) DETECTED Negative results do not preclude SARS-C oV-2 infection and should notb e used as the sole basis for patient management deci sions. Negativeresults must be combined with clinical o bservations, patient history ,and epidemiological information. Optimum specime n types and timingfor peak viral levels during infectio ns caused by SARS-CoV-2 have notbeen determined. Col lection of multiple specim ens or types ofspecimens may be necessary to detect virus. I mproper specimencollect ion and handling, sequence variab ility under primers/probes, or organism present below t he limit of detection may l ead to falsenegative r esults. Positive and negative pr edictive values oftesting are h ighly dependent on prevalence. False negative testresults are more likely when prevalence is h igh. SOURCE (test code = 51222) NOT SPECIFIED Note: Methodology is Franky Earl Real-Time RT-PCR. The expected r esult or reference range is NEGATIVE (Not Detected). For more information regarding COVID -19 testing to include clinica linformation, methodology det ail, intended use, FDA author ization andrecommended fact sheets for patients or a lthcare providers, see [employer] Announcement: S ARS-CoV-2 (COVID-19) by Elda WOOD at URL below (note,fact shee ts are provided by method given in report:https:// www.[employer]/c linicians/sofi t-communications/ Alternatively, see downloadable PDF fact sheet at:https://www. [employer]/COVID -19-RT-PCR UNLESS OTHERWISE INDIC ATED, ALL TESTING PERFORMED [facility], [facility]. [address] [place] [address] LABORATORY DIRE CTOR: RACIEL SALINAS M.D. CLIA NUMBER [id number] [facility] [place] [id number] SURGICAL PATHOLOGY, LEVEL [id number] 11:54:[address] [address] Laboratory Printed: 02/26/17 1155 [facility] DAEMPathology Page: 1 Patient: EUSEBIA ZAVALETA Birthdate: 1950 Age/Sex: 66/F Spec#: [id number]: Claire Rice Specimen Date: 02/24/17 Received Date: 02/25/17 Specimen: SKIN CLINICAL DIAGNOSIS L98.9 PATHOLOGIC DIAGNOSIS Skin, abdomen, excision: - Irritated, inflamed seborrheic keratosis. - No dysplasia or malignancy identified. Pathologist:Jayson Cowan MD Entered by:02/26/17 - 1144 LAB.YGP PROCEDURES: 24002 GROSS DESCRIPTION A. SKIN ABDOMEN The specimen is received in 10% formalin, and is labeled with the patient's name and tissuerequest. Accompanying paperwork says "abdomen". The specimen consists of a borrero-pinkpolypoid slightly pedunculated tissue fragment measuring 1.2x 1.0 x 0.5 cm in greatestdimensions. The deep margin is inked black. Both ends are shaved, and the remainingfragment is cross sectioned and entirely submitted in two cassettes, A1-2. Section code:A1- ends Patient: EUSEBIA ZAVALETA Re02/24/17[id number] MR#: [id number] CONTINUED ON NEXT PAGE Dis: Sta: DEP CLI [address] [address] Laboratory Printed: 02/26/17 1155 [facility] Page: 2 Patient: EUSEBIA ZAVALETAYCE [id number] (Continued) GROSS DESCRIPTION (Continued) A2 - cross sections Dictated by: Vidhi Varela Entered by: 02/25/17 - 1133 LAB.YGP MICROSCOPIC DESCRIPTION A microscopic examination was performed toarrive at the diagnostic conclusion reported. Signed (Electronically Signed) Jayson Cowan MD 02/26/17 Patient: EUSEBIA ZAVALETA ANDREA Re02/24/17Loc: [facility] MR#: [id number] END OF REPORT Dis: Sta: DEP CLI
--- NOTE | 2022-01-19 20:39 | RAD REPORT ---
EXAM DESCRIPTION: RAD - Chest Single View - 01/19/2022 8:09 pm CLINICAL HISTORY: SOB COMPARISON: Portable 03/06/2020 TECHNIQUE: AP portable chest image was obtained 01/19/2022 8:09 pm . FINDINGS: Interstitial markings are increased over comparison with focally more prominent stranding in the left base. No dense consolidation or large mass lesion. Heart and vasculature are normal. No m easurable pleural effusion and no pneumothorax. No acute bony abnormality seen. No acute aortic findi ngs suspected. IMPRESSION: Increased bilateral interstitial opacification with patchy airspace disease in the mid a nd lower left lung degroot. Findings are suspicious for left lung field infiltrate superimposed on interstitial edema or fibrosis .
[2022-01-19 20:50] LABS: Protime INR 0.95
[2022-01-19 20:51] LABS: Hematocrit 31.4 % (36.0-45.0); Lymphocytes % 17.3 % (15.3-44.8); MPV 9.3 fL (7.6-11.3); RBC Red Blood Cell Count 3.82 M/uL (3.86-4.86)
[2022-01-19 21:02] LABS: ALT/SGPT 16 U/L (12-78); AST/SGOT 13 U/L (15-37); Albumin 3.1 g/dL (3.4-5.0); Alkaline Phosphatase 92 U/L (45-117); BUN Blood Urea Nitrogen 26 mg/dL (7-18); Bicarbonate 27 mmol/L (21-32); Bilirubin Total 0.3 mg/dL (0.2-1.0); Glucose Level 129 mg/dL (74-106); Magnesium 2.1 mg/dL (1.8-2.4); NT PRO-BNP 1184 pg/mL (<125); Potassium 3.9 mmol/L (3.5-5.1); Protein, Total 6.6 g/dL (6.4-8.2); Sodium Level 141 mmol/L (136-145); Troponin High Sensitivity 5.1 pg/mL (<58.9)
[2022-01-19 21:05] LABS: Bilirubin Direct < 0.1 mg/dL (0-0.2)
[2022-01-19 21:29] LABS: SARS-COV-2 RT PCR NEGATIVE (NEGATIVE)
[2022-01-19] MEDS ORDERED: FUROSEMIDE 20 MG/ 2ML VIAL ONE (21:46)
--- NOTE | 2022-01-19 22:07 | ER ---
Nurse's Notes [facility] Name: Sonal Scruggs Age: 71 yrs Sex: Female : 1950 Arrival Date: 01/19/2022 Time: 19:01 Bed 13 Private MD: Beatrice Krause C Diagnosis: Combined systolic (congestive) and diastolic (congestive) heart failure Presentation: 01/19 19:12 Chief complaint: Patient states: SOB for months. Upon arrival to ER pt SpO2 99% on RA. ss Coronavirus screen: At this time, the client does not indicate any symptoms associated with coronavirus-19. Ebola Screen: No symptoms or risks identified at this time. Initial Sepsis Screen: Does the patient meet any 2 criteria? No. Patient's initial sepsis screen is negative. Does the patient have a suspected source of infection? No. Patient's initial sepsis screen is negative. Risk Assessment: Do you want to hurt yourself or someone else? Patient reports no desire to harm self or others. Onset of symptoms was January 19, 2022. 19:12 Method Of Arrival: Wheelchair ss 19:12 Acuity: CONY 3 ss Triage Assessment: 19:12 General: Appears in no apparent distress. comfortable, Behavior is calm, cooperative, ss appropriate for age. Pain: Denies pain. EENT: No signs and/or symptoms were reported regarding the EENT system. Neuro: Level of Consciousness is awake, alert, obeys commands, Oriented to person, place, time, situation, Appropriate for age. Respiratory: Reports shortness of breath at rest on exertion Airway is patent Respiratory effort is even, unlabored, Onset: The symptoms/episode began/occurred gradually, the patient has mild shortness of breath. Historical: - Allergies: 19:12 Azithromycin; ss 19:12 Ciprofloxacin HCl; ss 19:12 Codeine; ss 19:12 Morphine; ss 19:12 PENICILLINS; ss 19:12 Sulfa (Sulfonamide Antibiotics); ss 19:12 TETRACYCLINES; ss - PMHx: 19:12 COPD; Hyperlipidemia; Myocardial infarction; Hypertension; Asthma; Chronic obstructive ss lung disease; - PSHx: 19:12 Heart stent; ss - Immunization history:: Adult Immunizations up to date, Client reports receiving the 2nd dose of the Covid vaccine. - Social history:: Smoking status: Patient/guardian denies using tobacco, the patient reports quitting approximately 10. years ago, Patient/guardian denies using alcohol. Screenin:40 Abuse screen: Denies threats or abuse. Denies injuries from another. Nutritional joe screening: No deficits noted. Tuberculosis screening: No symptoms or risk factors identified. Fall Risk None identified. Assessment: 20:03 Reassessment: Patient appears in no apparent distress at this time. No changes from joe previously documented assessment. Cardiovascular: No deficits noted. Respiratory: No deficits noted. Reports shortness of breath Airway is patent. 20:39 Reassessment: All orders completed and labs sent. The pt remains in NAD. Her joe granddaughter is at bedside. 20:41 Respiratory: Reports shortness of breath on exertion joe 20:41 Cardiovascular: Rhythm is sinus bradycardia. joe 23:12 Reassessment: I tried to call report, as the pt is to go to 205 and has been "flipped" joe in registration, but the nurse will call back when she can take report. 23:28 Reassessment: Report called and the pt will be taken up via w/c, with her granddaughter joe accompanying. Vital Signs: 19:12 BP 144 / 70; Pulse 64; Resp 18; Temp 98.1(O); Pulse Ox 98% on R/A; Weight 89.81 kg; ss Height 5 ft. 7 in. (170.18 cm); Pain 0/10; 19:45 BP 131 / 71; Pulse 64; Pulse Ox 97% ; Pain 0/10; joe 21:31 BP 142 / 59; Pulse 59; Resp 18; Pulse Ox 96% on R/A; Pain 0/10; joe 23:04 BP 138 / 62; Pulse 62; Resp 18; Temp 98.5; Pulse Ox 98% on R/A; Pain 0/10; joe 19:12 Body Mass Index 31.01 (89.81 kg, 170.18 cm) ED Course: 19:01 Patient arrived in ED. am2 19:02 Beatrice Krause FNP is Private Physician. am2 19:12 Arm band placed on right wrist. ss 19:14 Triage completed. ss 19:15 Lv Goldstein MD is Attending Physician. 7 19:54 Tenisha Cantu, IRAJ is Primary Nurse. joe 20:11 XRAY Chest (1 view) In Process Unspecified. EDMS 20:37 COVID-19/FLU A+B (Document "Date of Onset" if Symptomatic) Sent. joe 20:38 Basic Metabolic Panel Sent. joe 20:38 CBC with Diff Sent. joe 20:38 LFT's Sent. joe 20:39 Magnesium Sent. joe 20:39 NT PRO-BNP Sent. joe 20:39 PT-INR Sent. joe 20:39 Troponin HS Sent. joe 20:41 Patient has correct armband on for positive identification. Placed in gown. Bed in low joe position. Call light in reach. Side rails up X 1. Adult w/ patient. 20:41 No provider procedures requiring assistance completed. joe 22:05 Karan Lew MD is Hospitalizing Provider. [facility] 01/20 00:09 Patient admitted, IV remains in place. joe Administered Medications: 01/19 22:02 Drug: Lasix (furosemide) 20 mg Route: IVP; Site: right wrist; joe Outcome: 20:41 Condition: stable joe 22:06 Decision to Hospitalize by Provider. [facility] 01/20 00:09 Admitted to Med/surg via wheelchair. joe 00:09 Patient left the ED. joe Signatures: Dispatcher [employer] EDTN Luli Coleman, IRAJ RN Leta Cedillo Maurice, MD MD [facility] Tenisha Cantu RN RN joe
--- NOTE | 2022-01-19 22:07 | EDPHYS ---
Physician Documentation [facility] Name: Sonal Scruggs Age: 71 yrs Sex: Female : 1950 Arrival Date: 01/19/2022 Time: 19:01 Bed 13 Private MD: Beatrice Krause C ED Physician Lv Goldstein HPI: 01/19 19:47 This 71 yrs old Female presents to ER via Wheelchair with complaints of Shortness Of mh7 Breath. 19:47 The patient has shortness of breath at rest. Onset: The symptoms/episode began/occurred mh7 this morning, today. Duration: The symptoms are intermittent, with no pattern. The patient's shortness of breath is aggravated by coughing, is alleviated by nothing. Associated signs and symptoms: Pertinent positives: chest pain, productive cough, Pertinent negatives: non-productive cough, diaphoresis, dizziness, fever, hemoptysis, loss of consciousness, nausea, numbness in extremities, visual changes, vomiting. Severity of symptoms: At their worst the symptoms were moderate today, in the emergency department the symptoms have improved moderately. Historical: - Allergies: 19:12 Azithromycin; ss 19:12 Ciprofloxacin HCl; ss 19:12 Codeine; ss 19:12 Morphine; ss 19:12 PENICILLINS; ss 19:12 Sulfa (Sulfonamide Antibiotics); ss 19:12 TETRACYCLINES; ss - PMHx: 19:12 COPD; Hyperlipidemia; Myocardial infarction; Hypertension; Asthma; Chronic obstructive ss lung disease; - PSHx: 19:12 Heart stent; ss - Immunization history:: Adult Immunizations up to date, Client reports receiving the 2nd dose of the Covid vaccine. - Social history:: Smoking status: Patient/guardian denies using tobacco, the patient reports quitting approximately 10. years ago, Patient/guardian denies using alcohol. ROS: 19:47 Constitutional: Negative for fever, chills, and weight loss, Eyes: Negative for injury, mh7 pain, redness, and discharge, ENT: Negative for injury, pain, and discharge, Neck: Negative for injury, pain, and swelling, Abdomen/GI: Negative for abdominal pain, nausea, vomiting, diarrhea, and constipation, Back: Negative for injury and pain, : Negative for injury, bleeding, discharge, and swelling, MS/Extremity: Negative for injury and deformity, Skin: Negative for injury, rash, and discoloration, Neuro: Negative for headache, weakness, numbness, tingling, and seizure, Psych: Negative for depression, anxiety, suicide ideation, homicidal ideation, and hallucinations, Allergy/Immunology: Negative for hives, rash, and allergies, Endocrine: Negative for neck swelling, polydipsia, polyuria, polyphagia, and marked weight changes, Hematologic/Lymphatic: Negative for swollen nodes, abnormal bleeding, and unusual bruising. Exam: 19:47 Constitutional: This is a well developed, well nourished patient who is awake, alert, mh7 and in no acute distress. Head/Face: Normocephalic, atraumatic. Eyes: Pupils equal round and reactive to light, extra-ocular motions intact. Lids and lashes normal. Conjunctiva and sclera are non-icteric and not injected. Cornea within normal limits. Periorbital areas with no swelling, redness, or edema. Neck: Trachea midline, no thyromegaly or masses palpated, and no cervical lymphadenopathy. Supple, full range of motion without nuchal rigidity, or vertebral point tenderness. No Meningismus. 19:47 Cardiovascular: Regular rate and rhythm with a normal S1 and S2. No gallops, murmurs, or rubs. Normal PMI, no JVD. No pulse deficits. Respiratory: Lungs have equal breath sounds bilaterally, clear to auscultation and percussion. No rales, rhonchi or wheezes noted. No increased work of breathing, no retractions or nasal flaring. Abdomen/GI: Soft, non-tender, with normal bowel sounds. No distension or tympany. No guarding or rebound. No evidence of tenderness throughout. Back: No spinal tenderness. No costovertebral tenderness. Full range of motion. Skin: Warm, dry with normal turgor. Normal color with no rashes, no lesions, and no evidence of cellulitis. MS/ Extremity: Pulses equal, no cyanosis. Neurovascular intact. Full, normal range of motion. Neuro: Awake and alert, GCS 15, oriented to person, place, time, and situation. Cranial nerves II-XII grossly intact. Motor strength 5/5 in all extremities. Sensory grossly intact. Cerebellar exam normal. Normal gait. Psych: Awake, alert, with orientation to person, place and time. Behavior, mood, and affect are within normal limits. 19:47 Chest/axilla: Inspection: normal, Palpation: tenderness, that is mild, of the mid-sternal area, that totally reproduces the patient's complaints, Axilla: are normal, Lymph nodes: lymphadenopathy is not appreciated. Vital Signs: 19:12 BP 144 / 70; Pulse 64; Resp 18; Temp 98.1(O); Pulse Ox 98% on R/A; Weight 89.81 kg; ss Height 5 ft. 7 in. (170.18 cm); Pain 0/10; 19:45 BP 131 / 71; Pulse 64; Pulse Ox 97% ; Pain 0/10; joe 21:31 BP 142 / 59; Pulse 59; Resp 18; Pulse Ox 96% on R/A; Pain 0/10; joe 23:04 BP 138 / 62; Pulse 62; Resp 18; Temp 98.5; Pulse Ox 98% on R/A; Pain 0/10; joe 19:12 Body Mass Index 31.01 (89.81 kg, 170.18 cm) MDM: 22:04 Differential diagnosis: Anemia Anxiety Reaction asthma, Bronchitis CHF exacerbation, 7 Chronic Obstructive Pulmonary Disease Myocardial Infarction pneumonia, Pneumothorax Psychogenic pulmonary edema, reactive airway disease. Data reviewed: vital signs, nurses notes, old medical records, lab test result(s), cardiac enzymes, CBC, electrolytes, EKG, radiologic studies, plain films. Data interpreted: Pulse oximetry: on room air is 96 %. Interpretation: normal. Counseling: I had a detailed discussion with the patient and/or guardian regarding: the historical points, exam findings, and any diagnostic results supporting the discharge/admit diagnosis, the presence of at least one elevated blood pressure reading (>120/80) during this emergency department visit, lab results, radiology results, the need for further work-up and treatment in the hospital. Response to treatment: the patient's symptoms have mildly improved after treatment. 22:06 Patient medically screened. [facility] 01/19 19:25 Order name: Basic Metabolic Panel; Complete Time: 21:09 [facility] 01/19 19:25 Order name: CBC with Diff; Complete Time: 20:59 [facility] 01/19 19:25 Order name: LFT's; Complete Time: 21:23 [facility] 01/19 19:25 Order name: Magnesium; Complete Time: 21:23 [facility] 01/19 19:25 Order name: NT PRO-BNP; Complete Time: 21:08 [facility] 01/19 19:25 Order name: PT-INR; Complete Time: 20:59 [facility] 01/19 19:25 Order name: Troponin HS; Complete Time: 21:23 [facility] 01/19 19:25 Order name: XRAY Chest (1 view); Complete Time: 20:47 [facility] 01/19 19:25 Order name: EKG; Complete Time: 19:27 [facility] 01/19 19:25 Order name: Cardiac monitoring; Complete Time: 20:38 [facility] 01/19 19:25 Order name: EKG - Nurse/Tech; Complete Time: 20:38 [facility] 01/19 19:25 Order name: IV Saline Lock; Complete Time: 20:38 [facility] 01/19 19:26 Order name: COVID-19/FLU A+B (Document "Date of Onset" if Symptomatic); Complete Time: [facility] 21:38 01/19 19:25 Order name: Labs collected and sent; Complete Time: 20:38 [facility] 01/19 19:25 Order name: O2 Per Protocol; Complete Time: 20:38 [facility] 01/19 19:25 Order name: O2 Sat Monitoring; Complete Time: 20:38 [facility] Administered Medications: 22:02 Drug: Lasix (furosemide) 20 mg Route: IVP; Site: right wrist; joe Disposition Summary: 01/19/22 22:06 Hospitalization Ordered Hospitalization Status: Inpatient Admission [facility] Provider: Karan Lew [facility] Location: Telemetry/MedSurg (Inpatient) [facility] Condition: Stable [facility] Problem: new [facility] Symptoms: have improved [facility] Bed/Room Type: Standard [facility] Room Assignment: 205(01/19/22 22:34) Diagnosis - Combined systolic (congestive) and diastolic (congestive) heart failure [facility] Forms: - Medication Reconciliation Form [facility] - SBAR form [facility] Signatures: Dispatcher [employer] EDMS Luli Coleman RN RN ss Khang Ohara, CONTENT STRATEGIST-C CONTENT STRATEGIST-Cla1 Charo Rodriguez RN RN cg Holmes, Maurice, MD MD [facility] Tenisha Cantu RN RN bo Corrections: (The following items were deleted from the chart) 22:34 22:06 mh7
--- NOTE | 2022-01-19 22:38 | P.HP ---
Certification for Inpatient Patient admitted to: Observation With expected LOS: <2 Midnights Patient will require the following post-hospital care: None Practitioner: I am a practitioner with admitting privileges, knowledge of patient current condition, hospital course, and medical plan of care. Services: Services provided to patient in accordance with Admission requirements found in Title 42 Section 412.3 of the Code of Federal Regulations Patient History Date of Service: 01/19/22 Reason for admission: Dyspnea History of Present Illness: 71-year-old female with history of COPD, CAD, hyperlipidemia, hypertension presents the emergency department for dyspnea on exertion. Patient reports increasing dyspnea on exertion over the course of the last week or 2 that feels different than her normal COPD exacerbations. Patient was evaluated the emergency department her work-up was significant for elevated BNP 1184, she had crackles upon auscultation chest x-ray demonstrated increased bilateral interstitial opacification with patchy airspace disease in the mid and lower left lung degroot suspicious for left lung field infiltrate superimposed on interstitial edema or fibrosis. White blood cell count 5.6 does not appear to have a bacterial pneumonia at this time patient was given Lasix 20 mg in ER ED provider wishes to admit under observation for cardiac evaluation given this will be a new diagnosis of CHF possibly. Allergies cameron Allergy (Severe, Verified 11/07/19 22:49) Hives azithromycin [From Zithromax] Allergy (Verified 12/09/11 12:53) Hives ciprofloxacin [From Cipro] Allergy (Verified 12/09/11 12:53) Hives ciprofloxacin HCl [From Cipro] Allergy (Verified 12/09/11 12:53) Hives morphine Allergy (Verified 11/07/19 22:46) Hives Penicillins Allergy (Verified 12/09/11 12:53) Hives Sulfa (Sulfonamide Antibiotics) Allergy (Verified 11/07/19 22:47) Hives tetracycline [Tetracycline] Allergy (Verified 12/09/11 12:53) Hives codeine [Codeine] Adverse Reaction (Intermediate, Verified 05/27/12 07:53) hallucinations flu vaccine Adverse Reaction (Severe, Uncoded 11/07/19 22:49) confusion Home Medications: Albuterol Inhaler [Ventolin Inhaler*] 2 puff IH PRN PRN 11/08/19 Albuterol Neb [Proventil 0.083% Neb Soln] 1 vial IH BID PRN 11/08/19 Aspirin Chewable [Aspirin Chewable*] 1 tab PO DAILY 11/08/19 LORazepam [Lorazepam] 1 tab PO DAILYPRN PRN 11/08/19 Metoprolol Tartrate 1 tab PO BID 11/08/19 Multivitamin [Multivitamins] 1 tab PO DAILY 11/08/19 Nitroglycerin [Nitrostat*] 1 tab SL PRN 11/08/19 PARoxetine HCL [Paroxetine HCl] 10 mg PO DAILY 11/08/19 Simvastatin 1 tab PO BEDTIME 11/08/19 - Past Medical/Surgical History Diabetic: No -: COPD -: HTN -: asthma -: HLD -: mini stroke (2012) -: DVT left leg -: bladder sling X2 -: kidney surgery -: hysterectomy -: tubal igation -: heart stent (2012) Psychosocial/ Personal History: Lives at home with her daughter - Family History Father -: Heart disease, Cancer, Kidney disease Notes: prostate. esrd Mother -: Cancer Notes: lymph node CA - Social History Smoking Status: Former smoker Alcohol use: Yes CD- Drugs: No Caffeine use: Yes Place of Residence: Home Review of Systems 10-point ROS is otherwise unremarkable Respiratory: SOB with Excertion Physical Examination - Physical Exam General: Alert, In no apparent distress, Oriented x3 HEENT: Atraumatic, PERRLA, Mucous membr. moist/pink, EOMI, Sclerae nonicteric Neck: Supple, 2+ carotid pulse no bruit, No LAD, Without JVD or thyroid abnormality Respiratory: Diminished, Crackles/rales Cardiovascular: No edema, Regular rate/rhythm, Normal S1 S2 Gastrointestinal: Normal bowel sounds, No tenderness Musculoskeletal: No tenderness Integumentary: No rashes Neurological: Normal gait, Normal speech, Normal strength at 5/5 x4 extr, Normal tone, Normal affect Lymphatics: No axilla or inguinal lymphadenopathy - Studies Laboratory Data (last 24 hrs) 01/19/22 20:30: PT 10.4, INR 0.95 01/19/22 20:30: WBC 5.6, Hgb 10.5 L, Hct 31.4 L, Plt Count 206 01/19/22 20:30: Sodium 141, Potassium 3.9, BUN 26 H, Creatinine 0.89, Glucose 129 H, Magnesium 2.1, Total Bilirubin 0.3, AST 13 L, ALT 16, Alkaline Phosphatase 92 Assessment and Plan - Plan Assessment: Dyspnea, suspect new CHF History of COPD CAD Hypertension Hyperlipidemia Plan: Dyspnea, suspect new CHF: Low-dose Lasix 20 mg IV twice daily, cardiology consult in place carvedilol, lisinopril, statin therapy ordered. Patient will likely need outpatient echocardiogram as it is not available this weekend. Appreciate further input from cardiology. History of COPD: As needed nebulizer treatments no wheezing noted. CAD: Continue home meds Hypertension: Continue home meds Hyperlipidemia: Continue home meds DVT PPX: Lovenox Code status:full Discharge Plan: Home Plan to discharge in: 24 Hours - Advance Directives Does patient have a Living Will: No Does patient have a Durable POA for Healthcare: No - Code Status/Comfort Care Code Status Assessed: Yes (Full code) Critical Care: No Time Spent Managing Pts Care (In Minutes): 55
[2022-01-19] MEDS ORDERED: ALBUTEROL 2.5 MG/3 ML NEB SOL NEB PRN (23:31)
[2022-01-19] MEDS ORDERED: ONDANSETRON 4 MG/2 ML VIAL IV PRN (23:31)
[2022-01-20 00:53] VITALS: O2SAT 98
[2022-01-20 01:27] LABS: Urine Appearance CLEAR (Clear); Urine Color COLORLESS (Yellow)
[2022-01-20 01:28] LABS: Urine Bilirubin NEGATIVE (Negative); Urine Blood NEGATIVE (Negative); Urine Glucose NEGATIVE (Negative); Urine Microscopic Reflex NO UMIC; Urine Protein NEGATIVE (Negative); Urine Urobilinogen 0.2 mg/dL (0.2-1.0)
[2022-01-20 01:36] VITALS: BMI 31.1
[2022-01-20] MEDS ORDERED: carvediloL 12.5 MG TAB PO SCH (06:00)
[2022-01-20 06:11] LABS: Absolute Lymphocytes (CBC) 0.9 K/uL (0.7-4.9); Hematocrit 32.7 % (36.0-45.0); Lymphocytes % 17.1 % (15.3-44.8); MPV 9.3 fL (7.6-11.3); RBC Red Blood Cell Count 4.01 M/uL (3.86-4.86)
[2022-01-20 06:29] LABS: Albumin 3.1 g/dL (3.4-5.0); Bilirubin Total 0.3 mg/dL (0.2-1.0); Potassium 3.8 mmol/L (3.5-5.1); Protein, Total 6.7 g/dL (6.4-8.2); Thyroid Stimulating Hormone 1.7 uIU/mL (0.360-3.740)
[2022-01-20] MEDS ORDERED: ENOXAPARIN 40 MG/0.4 ML SQ SCH (09:00)
[2022-01-20] MEDS ORDERED: FUROSEMIDE 20 MG/ 2ML VIAL IV SCH (09:00)
[2022-01-20] MEDS ORDERED: POTASSIUM CL SA 10 MEQ TAB PO ONE (09:00)
[2022-01-20] MEDS ORDERED: lisinopriL 5 MG TAB PO SCH (09:00)
[2022-01-20 09:18] VITALS: BP 130/62; TEMP 97.2
--- NOTE | 2022-01-20 10:27 | P.DS ---
Admission Date: 01/19/22 Discharge Date: 01/20/22 Disposition: ROUTINE DISCHARGE Discharge Condition: FAIR Reason for Admission: Dyspnea Brief History of Present Illness: Patient is 71 years of age with a history of COPD admitted with worsening dyspnea cough congestion for the past 2 weeks since he started on [facility] Course: At the time of my evaluation this morning she was doing well alert oriented responsive cooperative no new complaints breathing had improved aeration satisfactory vital signs all stable no clinical evidence of sepsis patient to be discharged home on prednisone and levofloxacin patient has categorically stated she is not not allergic to levofloxacin to follow-up with me in 2 weeks outpatient pulmonary function testing new with trilogy and bronchodilators Vital Signs/Physical Exam: Temp Pulse Resp BP Pulse Ox 97.2 F 65 16 130/62 93 01/20/22 08:00 01/20/22 08:00 01/20/22 08:00 01/20/22 08:00 01/20/22 08:00 Laboratory Data at Discharge: WBC 5.4 K/uL (4.3-10.9) 01/20/22 05:46 Hgb 11.2 g/dL (12.0-15.0) L 01/20/22 05:46 Hct 32.7 % (36.0-45.0) L 01/20/22 05:46 Plt Count 197 K/uL (152-406) 01/20/22 05:46 PT 10.4 SECONDS (9.5-12.5) 01/19/22 20:30 INR 0.95 01/19/22 20:30 Sodium 142 mmol/L (136-145) 01/20/22 05:46 Potassium 3.8 mmol/L (3.5-5.1) 01/20/22 05:46 BUN 25 mg/dL (7-18) H 01/20/22 05:46 Creatinine 0.82 mg/dL (0.55-1.3) 01/20/22 05:46 Glucose 106 mg/dL (74-106) 01/20/22 05:46 Magnesium 2.1 mg/dL (1.8-2.4) 01/19/22 20:30 Total Bilirubin 0.3 mg/dL (0.2-1.0) 01/20/22 05:46 AST 9 U/L (15-37) L 01/20/22 05:46 ALT 19 U/L (12-78) 01/20/22 05:46 Alkaline Phosphatase 93 U/L (45-117) 01/20/22 05:46 Triglycerides 175 mg/dL (<150) H 01/20/22 05:46 Cholesterol 134 mg/dL (<200) 01/20/22 05:46 HDL Cholesterol 39 mg/dL (40-60) L 01/20/22 05:46 Cholesterol/HDL Ratio 3.44 01/20/22 05:46 Home Medications: Albuterol Inhaler [Ventolin Inhaler*] 2 puff IH PRN PRN 11/08/19 Albuterol Neb [Proventil 0.083% Neb Soln] 1 vial IH BID PRN 11/08/19 Aspirin Chewable [Aspirin Chewable*] 1 tab PO DAILY 11/08/19 Metoprolol Tartrate 1 tab PO BID 11/08/19 Nitroglycerin [Nitrostat*] 1 tab SL PRN 11/08/19 PARoxetine HCL [Paroxetine HCl] 10 mg PO DAILY 11/08/19 Simvastatin 1 tab PO BEDTIME 11/08/19 Fluticasone/Umeclidin/Vilanter [Trelegy Ellipta 100-62.5-25] 1 each IH DAILY 01/20/22 Levofloxacin [Levaquin] 500 mg PO DAILY #7 tablet 01/20/22 Pantoprazole Sodium [Protonix] 1 tab PO DAILY 01/20/22 predniSONE [Prednisone*] 20 mg PO BID #14 tab 01/20/22 New Medications: Levofloxacin [Levaquin] 500 mg PO DAILY #7 tablet predniSONE [Prednisone*] 20 mg PO BID #14 tab Physician Discharge Instructions: Patient can be discharged home to follow-up with me in 2 weeks/verified with the patient she can take levofloxacin is not allergic to it and is on prescription has been faxed to the pharmacy Diet: Regular Activity: Ad ron Followup: KASSIE PEDERSEN [Primary Care Provider] -
[2022-01-20] MEDS ORDERED: ATORVASTATIN 10 MG TAB PO SCH (21:00)
--- NOTE | 2022-01-21 11:16 | EKG ---
Test Date: 2022-01-19 Test Time: 20:14:26 Material Expeditor: MEASUREMENT RESULTS: Intervals: Rate: 58 NJ: 120 QRSD: 92 QT: 440 QTc: 431 [place]: P: 79 NJ: 120 QRS: 80 T: 47 INTERPRETIVE STATEMENTS: Sinus bradycardia Otherwise normal ECG Compared to ECG 11/07/2019 18:31:33 No significant changes Electronically Signed On 01-21-22 11:12:50 CDT by Carlos Garland
== END 2022-01-20 11:18 | disposition home or self-care (01) ==
LOC: ER 19:00 → ERHOLD 22:21 → 2ND 22:51
PROVIDERS: ADMIT Internal Medicine Sleep Medicine; ATTEND Internal Medicine Sleep Medicine
DX: R06.00 Dyspnea, unspecified (principal); J44.9 Chronic obstructive pulmonary disease, unspecified; I25.10 Atherosclerotic heart disease of native coronary artery without angina pectoris; I10 Essential (primary) hypertension; E78.5 Hyperlipidemia, unspecified; I25.2 Old myocardial infarction; Z20.822 Contact with and (suspected) exposure to COVID-19; Z79.82 Long term (current) use of aspirin; Z79.899 Other long term (current) drug therapy; Z88.1 Allergy status to other antibiotic agents; Z88.3 Allergy status to other anti-infective agents; Z88.5 Allergy status to narcotic agent; Z88.0 Allergy status to penicillin; Z88.2 Allergy status to sulfonamides; Z88.7 Allergy status to serum and vaccine; Z91.018 Allergy to other foods; Z87.891 Personal history of nicotine dependence; Z86.73 Personal history of transient ischemic attack (TIA), and cerebral infarction without residual deficits; Z86.718 Personal history of other venous thrombosis and embolism; Z95.5 Presence of coronary angioplasty implant and graft; Z90.710 Acquired absence of both cervix and uterus; Z82.49 Family history of ischemic heart disease and other diseases of the circulatory system; Z80.42 Family history of malignant neoplasm of prostate; Z84.1 Family history of disorders of kidney and ureter; Z80.7 Family history of other malignant neoplasms of lymphoid, hematopoietic and related tissues
CPT/HCPCS: 93005; 85025 ×2; 80048; 36415; 83735; 85610; 80061; 80076; 84443; 81003; 84484; 84439; 80053; 83880; 0240U; 71045; 96374; 99285; J1940 ×2; J1650; G0378 ×2

== ENCOUNTER 2022-04-07 13:10 | Emergency (ER) | payer OTHER ==
--- OUTSIDE RECORDS SUMMARY | 2022-04-07 13:13 | XMS REPORT | Continuity of Care Document ---
:1950 Author Organization [facility] t Address [address] [place] [address] [place] [address] Care Team Providers Name Role Phone Dwayne [...] Department ID 2021-07-05 2021-07-05 Outpatient GCCOVIDV GCCOVIDV [id number] GCCOVID 00:00:00 00:00:00 V 2021-06-11 2021-06-11 Outpatient GCCOVIDV GCCOVIDV [id number] GCCOVID 00:00:00 00:00:00 V Results Test Description Test Time Test Comments Results Result Comments Source SARS-CoV-2 (COVID-19), RT-PCR/TMA 2021-11-16 10:18:51 Test Item Value Reference Range Interpretation Comme nts SARS-CoV-2 INTERPRETATION NEGATIVE SEE NOTE S ARS-CoV-2 RNA NOT (test code = 95099) DETECTED Negative results do not preclude SARS-C [...] is h igh. SOURCE (test code = 66956) NOT SPECIFIED Note: Methodology is Franky Earl Real-Time RT-PCR. The expected r esult or reference range is NEGATIVE (Not Detected). For more information regarding COVID -19 testing to include clinica linformation, methodology det ail, intended use, FDA author ization andrecommended fact sheets for patients or a lthcare providers, see [facility] Announcement: S ARS-CoV-2 (COVID-19) by Elda WOOD at URL below (note,fact shee ts are provided by method given in report:https:// www.[employer]/c linicians/sofi t-communications/ Alternatively, see downloadable PDF fact sheet at:https://www. [employer]/COVID -19-RT-PCR UNLESS OTHERWISE INDIC ATED, ALL TESTING PERFORMED [facility], [facility]. [address] [place] [address] LABORATORY DIRE CTOR: RACIEL SALINAS M.D. CLIA NUMBER [id number] [facility] [place]. [id number] SURGICAL PATHOLOGY, LEVEL [id number] 11:54:[address] [address] Laboratory Printed: 02/26/17 1155 [facility] DAEMPathology Page: 1 Patient: EUSEBIA ZAVALETA Birthdate: 1950 Age/Sex: 66/F Spec#: [id number]: Claire Rice Specimen Date: 02/24/17 Received Date: 02/25/17 Specimen: SKIN CLINICAL DIAGNOSIS L98.9 PATHOLOGIC DIAGNOSIS Skin, abdomen, excision: - Irritated, inflamed seborrheic keratosis. - No dysplasia or malignancy identified. Pathologist:Jayson Cowan MD Entered by:02/26/17 - 1144 LAB.YGP PROCEDURES: [id number] GROSS DESCRIPTION A. SKIN ABDOMEN The specimen [...] Section code:A1- ends Patient: EUSEBIA ZAVALETA Re02/24/17Loc: [facility] MR#: [id number] CONTINUED ON NEXT PAGE Dis: Sta: DEP CLI [address] [address] Laboratory Printed: 02/26/17 1155 [facility] DAEMPathology Page: 2 Patient: EUSEBIA ZAVALETAYCE [id number] (Continued) GROSS DESCRIPTION (Continued) A2 - cross sections Dictated by: Vidhi Varela Entered by: 02/25/17 - 1133 LAB.YGP MICROSCOPIC DESCRIPTION A microscopic examination was performed toarrive at the diagnostic conclusion reported. Signed (Electronically Signed) Jayson Cowan MD 02/26/17 Patient: WAQAREUSEBIA MENDEZ Re02/24/17Loc: [facility] MR#: [id number] END OF REPORT Dis: Sta: DEP CLI
--- NOTE | 2022-04-07 13:44 | RAD REPORT ---
EXAM DESCRIPTION: RAD - Chest Pa And Lat (2 Views) - 04/07/2022 1:29 pm CLINICAL HISTORY: COUGH COMPARISON: Chest Single View dated 01/19/2022; Chest Single View dated 03/06/2020; Chest Single View d ated 11/07/2019; Chest Pa And Lat (2 Views) dated 07/04/2019 FINDINGS: Lines: None. Lungs: No evidence of edema or pneumonia. Pleural: No significant pleural effusions or pneumothorax. Cardiac: The heart size is within normal limits. Bones: No acute fractures. Other: IMPRESSION: No acute cardiopulmonary disease.
--- NOTE | 2022-04-07 14:00 | EDPHYS ---
Physician Documentation [facility] Name: Sonal Scruggs Age: 72 yrs Sex: Female : 1950 Arrival Date: 04/07/2022 Time: 13:13 Bed 17 Private MD: ED Physician Rosemary Rutherford HPI: 04/07 13:19 This 72 yrs old Female presents to ER via EMS with complaints of Blood Pressure Problem.pm1 13:19 Onset: The symptoms/episode began/occurred today. Associated signs and symptoms: pm1 Pertinent positives: cough, shortness of breath, sore throat, Pertinent negatives: abdominal pain, chest pain, diarrhea, fever, vomiting, Nausea. Modifying factors: The patient symptoms are alleviated by Cough medication, guaifenesin.. The patient has not experienced similar symptoms in the past. The patient has not recently seen a physician. 72-year-old patient presenting to the ER with complaints of low blood pressure status post checking her blood pressure with her wrist blood pressure machine. Patient received some low readings and contacted EMS for evaluation of her blood pressure. EMS arrived and had 2 normal blood pressures 1 manually and 1 with the machine. Patient recently diagnosed with COVID 4 days ago with runny nose, postnasal drainage, sore throat, and cough. Patient reports shortness of breath slightly more than her baseline COPD. No chest pain, nausea, vomiting, diarrhea, fever, dizziness. Patient presenting here with primary complaint of low blood pressure. . Historical: - Allergies: 13:25 Azithromycin; ph 13:25 Ciprofloxacin HCl; ph 13:25 Codeine; ph 13:25 Morphine; ph 13:25 PENICILLINS; ph 13:25 Sulfa (Sulfonamide Antibiotics); ph 13:25 TETRACYCLINES; ph - PMHx: 13:25 Asthma; Chronic obstructive lung disease; COPD; Hyperlipidemia; Hypertension; ph Myocardial infarction; - PSHx: 13:25 heart stent; ph - Immunization history:: Adult Immunizations up to date. - Social history:: Smoking status: Patient denies any tobacco usage or history of. ROS: 13:19 Constitutional: Negative for fever, chills, and weight loss, Cardiovascular: Negative pm1 for chest pain, palpitations, and edema. 13:19 Abdomen/GI: Negative for abdominal pain, nausea, vomiting, diarrhea, and constipation, Back: Negative for injury and pain, MS/Extremity: Negative for injury and deformity, Skin: Negative for injury, rash, and discoloration, Neuro: Negative for headache, weakness, numbness, tingling, and seizure. 13:19 ENT: Positive for nasal discharge, sore throat, Postnasal drainage, Negative for ear pain. 13:19 Respiratory: Positive for cough, shortness of breath. 13:19 All other systems are negative. Exam: 13:19 Constitutional: This is a well developed, well nourished patient who is awake, alert, pm1 and in no acute distress. Head/Face: Normocephalic, atraumatic. 13:19 Skin: Warm, dry with normal turgor. Normal color with no rashes, no lesions, and no evidence of cellulitis. MS/ Extremity: Pulses equal, no cyanosis. Neurovascular intact. Full, normal range of motion. 13:19 ENT: Exam is negative for acute changes, External ear(s): are unremarkable, Ear canal(s): no acute changes, Mouth: no acute changes, Lips: normal, moist, Oral mucosa: normal, pink and intact, moist. 13:19 Cardiovascular: Exam negative for acute changes, Rate: normal, Rhythm: regular, Pulses: no pulse deficits are appreciated, Heart sounds: normal, normal S1and S2. 13:19 Respiratory: Exam negative for acute changes, respiratory distress, shortness of breath, Breath sounds: are clear throughout, no bronchial sounds, no decreased breath sounds, no rales, rhonchi, no stridor, no wheezing. 13:19 Neuro: Exam negative for acute changes, Orientation: is normal, Mentation: is normal, Motor: is normal, moves all fours. Vital Signs: 13:21 BP 121 / 57; Pulse 64; Resp 18; Temp 98.1; Pulse Ox 97% on R/A; ph MDM: 13:14 Patient medically screened. pm1 13:19 Data reviewed: vital signs. Data interpreted: Pulse oximetry: on room air is 96 %. pm1 Interpretation: normal. 13:19 Refusal of service: The patient/guardian displays adequate decision making capability pm1 and despite a detailed discussion of alternatives, benefits, risks, and consequences refuses: all lab tests, Discussed with patient I perform cardiac work up for COPD patient's who present to the ER with any symptoms of shortness of breath and cough. Patient attributes her symptoms to covid diagnosis 4 days ago. Patient reports recent stress test that was negative. Patient came to the ER for low blood pressure readings due to wrist blood pressure machine. EMS readings by machine and manual were within normal limits. Patient wanted to be evaluated for her vital signs and they were within normal limits in the ER. Patient would like a chest x-ray while here in the ER but no additional work up and refused the cough medications. She is taking guaifenesin at home. 13:19 ED course: Patient does not want strep or flu test for her symptoms. She attributes all pm1 symptoms to covid. 13:58 Counseling: I had a detailed discussion with the patient and/or guardian regarding: the pm1 historical points, exam findings, and any diagnostic results supporting the discharge/admit diagnosis, radiology results, the need for outpatient follow up, a family practitioner, to return to the emergency department if symptoms worsen or persist or if there are any questions or concerns that arise at home, Blood pressure machine that measures blood pressure on upper arm. 04/07 13:14 Order name: Chest Pa And Lat (2 Views) XRAY; Complete Time: 13:47 pm1 Administered Medications: No medications were administered Disposition Summary: 04/07/22 13:59 Discharge Ordered Location: Home pm1 Problem: new pm1 Symptoms: have improved pm1 Condition: Stable pm1 Diagnosis - Cough pm1 Followup: pm1 - With: Emergency Department - When: As needed - Reason: Worsening of condition Followup: pm1 - With: Private Physician - When: 2 - 3 days - Reason: Recheck today's complaints, Continuance of care, Re-evaluation by your physician Discharge Instructions: - Discharge Summary Sheet pm1 - Cough, Adult pm1 - COVID-19 pm1 - COVID-19 Frequently Asked Questions pm1 - Form - Blood Pressure Record Sheet pm1 - How to Take Your Blood Pressure pm1 - 10 Things You Can Do to Manage Your COVID-19 Symptoms at Home - [facility] pm1 - COVID-19: Quarantine vs. Isolation - [facility] pm1 Forms: - Medication Reconciliation Form pm1 - Thank You Letter pm1 - Antibiotic Education pm1 - Prescription Opioid Use pm1 Signatures: Dispatcher [employer] EDValencia Rousseau RN RN ph Marinas, Himanshu, WIRE SPIRAL BINDER WIRE SPIRAL BINDER pm1
--- NOTE | 2022-04-07 14:00 | ER ---
Nurse's Notes [facility] Name: Sonal Scruggs Age: 72 yrs Sex: Female : 1950 Arrival Date: 04/07/2022 Time: 13:13 Bed 17 Private MD: Diagnosis: Cough Presentation: 04/07 13:21 Chief complaint: EMS states: Dx w/ covid 4 days ago, reports cough, mild chest ph congestion and runny nose. Called EMS because when she checked her BP at home w/ wrist cuff it was low at 80/40, EMS checked w/ manual cuff and automatic cuff and found BP to be WNL \T\ 120s/50s, pt asymptomatic for hypotension, other VSS. Coronavirus screen: Vaccine status: Patient reports receiving the 2nd dose of the covid vaccine. Ebola Screen: No symptoms or risks identified at this time. Initial Sepsis Screen: Does the patient meet any 2 criteria? No. Patient's initial sepsis screen is negative. Does the patient have a suspected source of infection? No. Patient's initial sepsis screen is negative. Risk Assessment: Do you want to hurt yourself or someone else? Patient reports no desire to harm self or others. Onset of symptoms was April 07, 2022. 13:21 Method Of Arrival: EMS: [facility] ph 13:21 Acuity: CONY 4 ph Triage Assessment: 13:26 General: Appears in no apparent distress. comfortable, Behavior is calm, cooperative, ph appropriate for age, Denies fever, chills. Pain: Denies pain. Neuro: Level of Consciousness is awake, alert, obeys commands, Oriented to person, place, time, situation. Cardiovascular: Denies chest pain, Capillary refill < 3 seconds in bilateral fingers Patient's skin is warm and dry. Respiratory: Reports shortness of breath that is mild, hx of COPD cough that is Airway is patent Respiratory effort is even, unlabored, Respiratory pattern is regular, symmetrical. GI: No signs and/or symptoms were reported involving the gastrointestinal system. Derm: Skin is intact, is healthy with good turgor, Skin is pink, warm \T\ dry. Musculoskeletal: Circulation, motion, and sensation intact. Range of motion: intact in all extremities. Historical: - Allergies: 13:25 Azithromycin; ph 13:25 Ciprofloxacin HCl; ph 13:25 Codeine; ph 13:25 Morphine; ph 13:25 PENICILLINS; ph 13:25 Sulfa (Sulfonamide Antibiotics); ph 13:25 TETRACYCLINES; ph - PMHx: 13:25 Asthma; Chronic obstructive lung disease; COPD; Hyperlipidemia; Hypertension; ph Myocardial infarction; - PSHx: 13:25 heart stent; ph - Immunization history:: Adult Immunizations up to date. - Social history:: Smoking status: Patient denies any tobacco usage or history of. Screenin:25 Abuse screen: Denies threats or abuse. Denies injuries from another. Nutritional ph screening: No deficits noted. Tuberculosis screening: No symptoms or risk factors identified. Fall Risk None identified. Assessment: 13:30 General: SEE TRIAGE NOTE. bp 14:14 Reassessment: PT D/C HOME AMBULATORY WITH FAMILY, DX WITH COUGH. bp Vital Signs: 13:21 BP 121 / 57; Pulse 64; Resp 18; Temp 98.1; Pulse Ox 97% on R/A; ph ED Course: 13:13 Patient arrived in ED. bp 13:13 Himanshu Moreno NP is PHCP. pm1 13:13 Rosemary Rutherford MD is Attending Physician. pm1 13:23 Ben Edwards, IRAJ is Primary Nurse. bp 13:25 Triage completed. ph 13:25 Arm band placed on. ph 13:27 Patient has correct armband on for positive identification. Bed in low position. Call ph light in reach. Side rails up X 1. Pulse ox on. NIBP on. Door closed. Noise minimized. Warm blanket given. 13:31 Chest Pa And Lat (2 Views) XRAY In Process Unspecified. EDMS 14:14 No provider procedures requiring assistance completed. Patient did not have IV access bp during this emergency room visit. Administered Medications: No medications were administered Medication: 13:27 VIS not applicable for this client. ph Outcome: 13:59 Discharge ordered by MD. pm1 14:14 Discharged to home ambulatory, with family. bp 14:14 Condition: stable 14:14 Discharge instructions given to patient, Instructed on discharge instructions, follow up and referral plans. Demonstrated understanding of instructions, follow-up care. 14:15 Patient left the ED. bp Signatures: Dispatcher [employer] EDMS Valencia Vale RN RN Himanshu Moreno NP MANAGED CARE LIAISON pm1 Ben Edwards, RN RN bp
[2022-04-07 14:40] VITALS: BP 121/57; TEMP 98.1; O2SAT 97
== END 2022-04-07 14:15 | disposition home or self-care (01) ==
LOC: ER 13:10
DX: R05.9 Cough, unspecified (principal); Z86.16 Personal history of COVID-19; J44.9 Chronic obstructive pulmonary disease, unspecified; I10 Essential (primary) hypertension; I25.2 Old myocardial infarction; Z88.0 Allergy status to penicillin; Z88.1 Allergy status to other antibiotic agents; Z88.2 Allergy status to sulfonamides; Z88.5 Allergy status to narcotic agent; Z95.818 Presence of other cardiac implants and grafts
CPT/HCPCS: 71046; 99283

== ENCOUNTER 2023-08-05 21:17 | Emergency (ER) | payer OTHER ==
--- OUTSIDE RECORDS SUMMARY | 2023-08-05 21:20 | XMS REPORT | Continuity of Care Document ---
:1950 Author Organization [facility] t Address [address] [facility] [place] [address] Care Team Providers Name Role Phone Claire Rice Attending Clinician Unavailable Problems This patient has no known problems. Allergies, Adverse Reactions, Alerts This patient has no known allergies or adverse reactions. Medications This patient has no known medications. Immunizations Ordered Immunization Filled Immunization Date Status Commen ts Source Name Name Modernmya COVID-19 Moderna COVID-19 2021-07-05 Completed Vaccine Vaccine 00:00:00 Moderna COVID-19 Moderna COVID-19 2021-06-11 Completed Vaccine Vaccine 00:00:00 Procedures This patient has no known procedures. Encounters Start End Encounter Admission Attending Care Care Encounter Source Date/Time Date/Time Type Type Clinicians Facility Department ID 2023-05-28 2023-05-28 Outpatient ANDRÉS BOWEN [id number] [address] 07:14:04 07:14:04 [id number] F Ricardo 2021-07-05 2021-07-05 Outpatient GCCOVIDV GCCOVIDV [id number] GCCOVID 00:00:00 00:00:00 V 2021-06-11 2021-06-11 Outpatient GCCOVIDV GCCOVIDV [id number] GCCOVID 00:00:00 00:00:00 V Results Test Description Test Time Test Comments Results Result Comments Source COMPREHENSIVE METABOLIC PANEL 2023-02-04 06:16:28 Test Item Value Reference Range Interpretation Comme nts GLUCOSE (test code = 2217) 103 MG/DL 70-99 H BUN (test code = 2208) 25 MG/DL 8-23 H CREATININE (test code = 0.88 MG/DL 0.60-1.30 2214) eGFR (2020 CKD-EPI) (test 69 ML/MIN/1.73 >60 code = 72383) CALC BUN/CREAT (test code = 28 RATIO 6-28 2234) SODIUM (test code = 223) 143 MEQ/L 133-146 POTASSIUM (test code = 2228) 4.5 MEQ/L 3.5-5.4 CHLORIDE (test code = 2215) 105 MEQ/L 95-107 CARBON DIOXIDE (test code = 26 MEQ/L -2205) CALCIUM (test code = 220) 9.8 MG/DL 8.5-10.5 PROTEIN, TOTAL (test code = 6.9 G/DL 6.1-8.3 2228) ALBUMIN (test code = 220) 4.6 G/DL 3.5-5.2 CALC GLOBULIN (test code = 2.3 G/DL 1.9-3.7 2239) CALC A/G RATIO (test code = 2.0 RATIO 1.0-2.6 2233) BILIRUBIN, TOTAL (test code 0.7 MG/DL See_Comment [Automated message] The = 2206) system which ge nerated this result transmit vincent reference range: <=1.2. T he reference range was not u sed to interpret this result as normal/abnormal . ALKALINE PHOSPHATASE (test 83 U/L 40-142 code = 2204) AST (test code = 2218) 15 U/L 9-40 ALT (test code = 2219) 12 U/L 5-40 LIPID [id number] 06:16:28 Test Item Value Reference Range Interpretation Comments CHOLESTEROL (test 179 MG/DL <200 code = 2210) TRIGLYCERIDES (test 129 MG/DL <150 code = 2232) HDL CHOLESTEROL (test 59 MG/DL >39 code = 2220) CALC LDL CHOL (test 97 MG/DL <100 NOTE: C ALCULATED LDL code = 2237) IS BASED ON FLORENCE-OBRIEN METHOD WHICHINCLUDES ADJUSTABLE TRIGLYCERIDE:VL DL CHOLESTEROL RAT IO.THIS FACTOR VARIES B Y MEASURED TRIGLY CERIDE AND NON-HDLCHOL ESTEROL CONCENTRATIONS WITH INCREASED CALCU LATED LDL SEENIN HIGH ER TRIGLYCERIDE OR LOWER NON-HDL SPECIME NS. FOR MOREINFORMATION , SEE CLIENT ANNOUNCE MENT AT [email or web address] [email or web address] RATIO LDL/HDL 1.64 RATIO <3.22 CPL has important (test code = 2238) pathology staff changes effecti ve 12/18/2022. New pathology staff will provide uninter rupted, excellent patie nt care and clinical consultation. S ee URL: [email or web address]. UNLES S OTHERWISE INDIC ATED, ALL TESTING PER FORMED AT [facility], [facility]. [address] [place] [address] VIN HYMAN DIRECTOR: Marifer KILGORE YONI NUMBER [id number] CAP ACCREDITATION N O. [id number] URINALYSIS W/REFLEX [id number] 05:41:32 Test Item Value Reference Range Interpretation Comments COLOR (test code = YELLOW YELLOW-STRAW 1501) APPEARANCE (test code CLEAR CLEAR = 1502) SPECIFIC GRAVITY (test 1.024 1.005-1.035 code = 1503) LEUKOCYTE ESTERASE TRACE NEGATIVE A (test code = 1504) NITRITE (test code = NEGATIVE NEGATIVE 1505) pH (test code = 1506) 5.0 5.0-9.0 PROTEIN (test code = NEGATIVE NEGATIVE 1507) GLUCOSE (test code = NEGATIVE NEGATIVE 1508) KETONES (test code = NEGATIVE NEGATIVE 1509) UROBILINOGEN (test 0.2 MG/DL See_Comment [Automat ed message] code = 1510) The system [employer] generated this result transmitted ref erence range: <=2.0. T he reference range was not used to int erpret this result as normal/abnormal . BILIRUBIN (test code = NEGATIVE NEGATIVE 1511) OCCULT BLOOD (test NEGATIVE NEGATIVE code = 1512) WHITE BLOOD CELLS 11-15 /HPF 0-5 A (test code = 1513) RED BLOOD CELLS (test 0-2 /HPF 0-2 PLEAS E NOTE: NEW code = 1514) REFERENCE RANGE EFFECTIVE 01/13. EPITHELIAL CELLS (test 11-15 /HPF 0-10 A code = 08809) BACTERIA (test code = 1+ NONE SEEN A 1515) CASTS, HYALINE (test NONE SEEN NONE-TRACE code = 1517) CBC W/AUTO DIFF WITH [id number] 05:13:37 Test Item Value Reference Range Interpretation Comments WBC (test code = 3.9 K/UL 3.5-11.0 1001) RBC (test code = 4.48 M/UL 3.80-5.40 1002) HEMOGLOBIN (test code 12.9 G/DL 11.5-15.5 = 1003) HEMATOCRIT (test code 39.5 % 34.0-45.0 = 1004) MCV (test code = 88.2 fL 80.0-99.0 1005) MCH (test code = 28.8 PG 25.0-33.0 1006) MCHC (test code = 32.7 G/DL 31.0-36.0 1007) RDW (test code = 13.3 % 11.5-15.0 1038) NEUTROPHILS (test 66.6 % code = 1008) LYMPHOCYTES (test 21.0 % code = 1010) MONOCYTES (test code 9.3 % = 1011) EOSINOPHILS (test 2.3 % code = 1012) BASOPHILS (test code 0.5 % = 1013) IMMATURE GRANULOCYTES 0.3 % (test code = 1036) NUCLEATED RBCS (test 0.0 /100 WBC'S See_Comment [Aut omated code = 1065) message] The sy stem which generated this result transmitted reference range : 0.0. The refere nce range was not u sed to interpret th is result as normal/abnormal . PLATELET COUNT (test 121 K/UL 130-400 L code = 1015) ABSOLUTE NEUTROPHILS 2.57 K/UL 1.50-7.50 (test code = 1066) ABSOLUTE LYMPHOCYTES 0.81 K/UL 1.00-4.00 L (test code = 1067) ABSOLUTE MONOCYTES 0.36 K/UL 0.20-1.00 (test code = 1068) ABSOLUTE EOSINOPHILS 0.09 K/UL 0.00-0.50 (test code = 1040) ABSOLUTE BASOPHILS 0.02 K/UL 0.00-0.20 (test code = 1069) ABS IMMATURE 0.01 K/UL 0.00-0.10 GRANULOCYTES (test code = 1020) ABS NUCLEATED RBCS 0.00 K/UL 0.00-0.11 (test code = 05755) SARS-CoV-2 (COVID-19), RT-PCR/[id number] 10:18:51 Test Item Value Reference Interpretation Comments Range SARS-CoV-2 NEGATIVE SEE NOTE SARS-CoV-2 RNA NOT INTERPRETATION DETECTEDNegat devi (test code = 99706) results do not preclude SARS-CoV-2 infe ction and should notb e used as the sole bas is for patient managem ent decisions. Negativeresults must be combined with c linical observations, p atient history,and epidemiological information. Op timum specimen types and timingfor peak viral levels during infections caus ed by SARS-CoV-2 have notbeen determined. Col lection of multiple spe cimens or types ofspec imens may be necessar y to detect virus. I mproper specimencollect ion and handling, seque nce variability und er primers/probes, or organism presen t below the limit of de tection may lead to falsenegative r esults. Positive and ne gative predictive valu es oftesting are h ighly dependent on prevalence. Fal se negative testre sults are more likely when prevalence is h igh. SOURCE (test code = [place]: [place] [address]) Franky Earl Kendall l-Time RT-PCR. The exp ected result or refer ence range is NEGATI VE (Not Detected). For more information reg arding COVID-19 testin g to include clinicalinforma tion, methodology det ail, intended use, F DA authorization andrecommended fact sheets for alfonzo ents or healthcare prov iders, see [employer] Announcement: SARS-CoV-2 (COV ID-19) by NAAT at URL below (note,fact shee ts are provided by met hod given in report:https:// www.[employer].com/clinici ans/clavril nt-communicatio ns/ Alternatively, see downloadable PD F fact sheet at:https://www. [employer]/COVID-19-RT -PCR UNLESS OTHERWIS E INDICATED, ALL TESTING PERFORMED [facility] NICAL PATHOLOGY LABOR [employer] [address] [place] [address] 00 4 LABORATORY DIRE CTOR: RACIEL GALINDO M.D. LUCIAIA NUMBER [id number] [place] [id number] SURGICAL PATHOLOGY, LEVEL [id number] 11:54:[address] [address] Laboratory Printed: 02/26/17 1155 [facility] DAEMPathology Page: 1 Patient: EUSEBIA ZAVALETA Birthdate: 1950 Age/Sex: 66/F Spec#: [id number]: Claire Rice Specimen Date: 02/24/17 Received Date: 02/25/17 Specimen: SKIN CLINICAL DIAGNOSIS L98.9 PATHOLOGIC DIAGNOSIS Skin, abdomen, excision: - Irritated, inflamed seborrheic keratosis. - No dysplasia or malignancy identified. Pathologist:Jayson Cowan MD Entered by:02/26/17 - 1144 [facility].YGP PROCEDURES: 20853 GROSS DESCRIPTION A. SKIN ABDOMEN The specimen [...] code:A1 - ends Patient: EUSEBIA ZAVALETA Re02/24/17Loc: [facility] MR#: [id number] CONTINUED ON NEXT PAGE Dis: Sta: DEP CLI [facility] [address] [place] [address] Laboratory Printed: 02/26/17 [facility] DAEMPathology Page: 2 Patient: EUSEBIA ZAVALETAYCE [id number] (Continued)-------- ---- GROSS DESCRIPTION (Continued) A2 - cross sections Dictated by: Vidhi Varela Entered by: 02/25/17 - 1133 LAB.YGP MICROSCOPIC DESCRIPTION A microscopic examination was performed to arrive at the diagnostic conclusion reported. Signed (Electronically Signed) Jayson Cowan MD 02/26/17 Patient: EUSEBIA ZAVALETA Re02/24/17Loc: [facility] MR#: [id number] END OF REPORT Dis: Sta: DEP CLI
[2023-08-05 21:55] LABS: Absolute Lymphocytes (CBC) 0.3 K/uL (0.7-4.9); Hematocrit 32.5 % (36.0-45.0); Lymphocytes % 6.6 % (15.3-44.8); MCV 86.4 fL (80-100); MPV 10.4 fL (7.6-11.3); Platelets 93 thou/uL (152-406); RBC Red Blood Cell Count 3.76 M/uL (3.86-4.86)
--- NOTE | 2023-08-05 21:56 | RAD REPORT ---
EXAM DESCRIPTION: RADChest Single View08/05/2023 9:39 pm CLINICAL HISTORY: COPD COMPARISON: Chest Pa And Lat (2 Views) dated 04/07/2022; Chest Single View dated 01/19/2022; Chest Sing le View dated 03/06/2020; Chest Single View dated 11/07/2019 TECHNIQUE: Portable AP view of the chest. FINDINGS: The lungs are clear. No pneumothorax or effusion. The cardiomediastinal contours are unre markable. IMPRESSION: No acute cardiopulmonary process.
[2023-08-05 22:08] LABS: Potassium 3.7 mEq/L (3.5-5.1)
[2023-08-05] MEDS ORDERED: NA CHLORIDE 0.9% 1,000 ML ONE (22:09)
[2023-08-05] MEDS ORDERED: CEFTRIAXONE 1000 MG/VIAL ONE (22:09)
[2023-08-05] MEDS ORDERED: ACETAMINOPHEN 500 MG TAB ONE (22:09)
[2023-08-05 22:32] LABS: Blood Morphology Comment NOT SEEN (NOT SEEN); Platelet Estimate DECR; White Blood Cell Scan OK (OK)
[2023-08-06] LABS: Specific Gravity 1.017 (1.005-1.030); Urine Bacteria <20 /HPF (<20); Urine Bilirubin NEGATIVE (Negative); Urine Blood 2+ (Negative); Urine Clarity Extremely Turbid (Clear); Urine Color Light-Orange (Yellow); Urine Crystals Unidentified Few /HPF (None Seen); Urine Glucose NEGATIVE (Negative); Urine Mucus Slight /HPF (None Seen); Urine Protein 2+ (Negative); Urine RBC >50 /HPF (None Seen); Urine Urobilinogen 1+ (Normal); Urine WBC Clump Many /HPF (None Seen)
--- NOTE | 2023-08-06 00:08 | EDPHYS ---
Physician Documentation [facility] Name: Sonal Scruggs Age: 73 yrs Sex: Female : 1950 Arrival Date: 08/05/2023 Time: 21:17 Bed 5 Private MD: ED Physician Benjamin Restrepo HPI: 08/05 21:20 This 73 yrs old Female presents to ER via Unassigned with complaints of ec2 dysuria, chills. 21:20 Patient arrives today due to concern for chills. Patient states that she had noted some ec2 chills this morning and that prompted evaluation today. Patient reports no issues with vomiting or diarrhea, denies any cough symptoms. States that she has some dysuria which is new for her. Does report a baseline shortness of breath, has a history of COPD and has inhalers at home. Denies any chest pain. Historical: - Allergies: 21:26 Azithromycin; bp 21:26 Ciprofloxacin HCl; bp 21:26 Codeine; bp 21:26 Morphine; bp 21:26 PENICILLINS; bp 21:26 Sulfa (Sulfonamide Antibiotics); bp 21:26 TETRACYCLINES; bp - PMHx: 21:26 Asthma; Chronic obstructive lung disease; COPD; Hyperlipidemia; Hypertension; bp Myocardial infarction; - PSHx: 21:26 heart stent; bp - Immunization history:: Adult Immunizations up to date. - Social history:: Smoking status: Patient denies any tobacco usage or history of. ROS: 21:20 Constitutional: chills ec2 Exam: 21:20 Constitutional: GEN: NAD HEENT: -Head: atraumatic -Eyes: EOMI -Ears: External ears ec2 are normal. CV: regular rate LUNGS: no respiratory distress ABD: non-distended SKIN: no evidence of rashes MSK: no evidence of trauma NEURO: moves all extremities equally Vital Signs: 21:17 BP 93 / 52; Pulse 88; Resp 16; Temp 101.2; Pulse Ox 100% ; bp 22:39 BP 121 / 41; Pulse 81; Resp 16; Pulse Ox 96% ; bp 23:38 BP 117 / 46; Pulse 78; Resp 16; Pulse Ox 97% ; bp 10/18 00:24 BP 109 / 55; Pulse 76; Resp 15; Temp 99.1; Pulse Ox 98% ; bp Anastacio Coma Score: 00:33 Eye Response: spontaneous(4). Motor Response: obeys commands(6). Verbal Response: rv oriented(5). Total: 15. MDM: 08/05 21:19 Patient medically screened. ec2 21:20 ED course: Patient arrives today due to concern for chills. Examination remarkable ec2 well-appearing nontoxic visuals no acute distress with reassuring vital signs. Will obtain lab work, chest x-ray, urine studies to evaluate the patient's complaint. Currently considered infectious process such as pneumonia, COPD exacerbation, urinary tract infection. Patient otherwise without any significant respiratory distress to warrant additional measures such as breathing treatments or steroids at this time.. 21:39 ED course: EKG independently reviewed and interpreted by me, shows normal sinus rhythm, ec2 rate of 86, no acute ST segment elevations, nonconcerning intervals. 22:52 ED course: Patient's lab work is otherwise remarkable for noninfectious appearing ec2 urine, metabolic profile that shows some renal dysfunction with a creatinine of 3.62, send leukocytosis of 12.0. Slight BNP elevation at 6300. Metabolic profile pertinent for reassuring electrolytes, slightly diminished GFR, CBC within appropriate ranges, chest x-ray that shows no acute intrathoracic process. Currently pending urine studies. . 08/06 00:03 ED course: Urine is contaminated however does appear infectious and patient is ec2 symptomatic, I will start the patient antibiotics for this.. 00:03 ED course: Presentation consistent with UTI. Patient otherwise with hypertensive blood ec2 pressure on arrival however no tachycardia, no leukocytosis otherwise does not meet SIRS criteria. Currently does not meet sepsis criteria. Will discharge home with prescription for antibiotics, return precautions given. On reassessment patient is well-appearing, I discussed the results with the family and they feel this is appropriate as well. . 00:08 Data reviewed: vital signs. ec2 08/05 21: Order name: Basic Metabolic Panel; Complete Time: :52 ec2 08/05 21:20 Order name: CBC with Diff; Complete Time: :52 ec2 08/05 21:20 Order name: Urinalysis w/ reflexes; Complete Time: 00:03 ec2 08/05 21:33 Order name: Blood Culture Adult (2) ec2 08/05 21:33 Order name: Lactate w/ 2H reflex if indic.; Complete Time: 00:03 ec2 08/05 22:01 Order name: CBC Smear Scan; Complete Time: 22:52 EDMS 08/05 21:20 Order name: XRAY Chest (1 view); Complete Time: 22:52 ec2 08/05 21:20 Order name: EKG; Complete Time: 21:20 ec2 08/05 21:20 Order name: Cardiac monitoring; Complete Time: 21:28 ec2 08/05 21:20 Order name: EKG - Nurse/Tech; Complete Time: 21:39 ec2 08/05 21:20 Order name: IV Saline Lock; Complete Time: 22:44 ec2 08/05 21:20 Order name: Labs collected and sent; Complete Time: 22:44 ec2 08/05 21:20 Order name: O2 Per Protocol; Complete Time: 21:28 ec2 08/05 21:20 Order name: O2 Sat Monitoring; Complete Time: 21:28 ec2 Administered Medications: 08/05 22:30 Drug: Rocephin IV 1 grams IV at calculated rate once; Given slow IV push per pharmacy la4 instructions {Note: IV push.} Route: IV; Rate: calculated rate; Infused Over: 5 mins; Site: right forearm; Delivery: Primary tubing; 08/06 00:25 Follow up: IV Status: Completed infusion; IV Intake: 50ml bp 08/05 22:31 Drug: Acetaminophen PO 1000 mg PO once Route: PO; la4 08/06 00:25 Follow up: Response: No adverse reaction bp 08/05 22:31 Drug: NS 0.9% IV 1000 ml IV at 1 bolus Per protocol; 1000 mL bolus Route: IV; Rate: 1 la4 bolus; Infused Over: 30 mins; Site: right forearm; Delivery: Primary tubing; 08/06 00:25 Follow up: IV Status: Completed infusion; IV Intake: 1000ml bp Disposition Summary: 08/06/23 00:07 Discharge Ordered Notes: Location: Home ec2 Condition: Stable ec2 Diagnosis - UTI/ Urinary tract infection, site not specified ec2 Discharge Instructions: - Discharge Summary Sheet ec2 - Urinary Tract Infection, Adult, [id number] ec2 Forms: - Medication Reconciliation Form ec2 - Thank You Letter ec2 - Antibiotic Education ec2 - Prescription Opioid Use ec2 - Patient Portal Instructions ec2 - Leadership Thank You Letter ec2 Prescriptions: - cefpodoxime 100 mg Oral Tablet - take 2 tablets ORAL route every 12 hours for 10 days take with food; 40 tablet; ec2 Refills: 0, Product Selection Permitted Signatures: Dispatcher [employer] Ben Mayer, RN RN Benjamin Jenkins MD MD ec2 Lia Dunlap RN RN la4
--- NOTE | 2023-08-06 00:08 | ER ---
Nurse's Notes [facility] Name: Sonal Scruggs Age: 73 yrs Sex: Female : 1950 Arrival Date: 08/05/2023 Time: 21:17 Bed 5 Private MD: Diagnosis: UTI/ Urinary tract infection, site not specified Presentation: 08/05 21:17 Chief complaint: EMS states: GENERAL MALAISE AND FEVER. bp 21:17 Coronavirus screen: At this time, the client does not indicate any symptoms associated bp with coronavirus-19. Ebola Screen: No symptoms or risks identified at this time. Initial Sepsis Screen: Does the patient meet any 2 criteria? No. Patient's initial sepsis screen is negative. Does the patient have a suspected source of infection? No. Patient's initial sepsis screen is negative. Risk Assessment: Do you want to hurt yourself or someone else? Patient reports no desire to harm self or others. Onset of symptoms was August 05, 2023. 21:17 Method Of Arrival: EMS: [facility] bp 21:17 Acuity: CONY 3 bp Triage Assessment: 21:17 General: Appears in no apparent distress. Behavior is calm, cooperative, appropriate bp for age. Pain: Denies pain. Historical: - Allergies: 21:26 Azithromycin; bp 21:26 Ciprofloxacin HCl; bp 21:26 Codeine; bp 21:26 Morphine; bp 21:26 PENICILLINS; bp 21:26 Sulfa (Sulfonamide Antibiotics); bp 21:26 TETRACYCLINES; bp - PMHx: 21:26 Asthma; Chronic obstructive lung disease; COPD; Hyperlipidemia; Hypertension; bp Myocardial infarction; - PSHx: 21:26 heart stent; bp - Immunization history:: Adult Immunizations up to date. - Social history:: Smoking status: Patient denies any tobacco usage or history of. Screenin:17 [facility] ED Fall Risk Assessment (Adult) History of falling in the last 3 months, bp including since admission No falls in past 3 months (0 pts). Abuse screen: Denies threats or abuse. Denies injuries from another. Nutritional screening: No deficits noted. Tuberculosis screening: No symptoms or risk factors identified. Assessment: 21:17 General: SEE TRIAGE NOTE. bp 22:39 Reassessment: Patient appears in no apparent distress at this time. Patient is alert, bp oriented x 3, equal unlabored respirations, skin warm/dry/pink. PT DECLINING STRAIGHT CATH FOR UOP. 23:38 Reassessment: No changes from previously documented assessment. Patient is alert, bp oriented x 3, equal unlabored respirations, skin warm/dry/pink. 08/06 14:12 General: Preliminary blood culture results Gram negative rods. Dr Reyes notified. iw Per MD, spoke with pt's daughter and recommended pt return to ED for admission. Vital Signs: 08/05 21:17 BP 93 / 52; Pulse 88; Resp 16; Temp 101.2; Pulse Ox 100% ; bp 22:39 BP 121 / 41; Pulse 81; Resp 16; Pulse Ox 96% ; bp 23:38 BP 117 / 46; Pulse 78; Resp 16; Pulse Ox 97% ; bp 08/06 00:24 BP 109 / 55; Pulse 76; Resp 15; Temp 99.1; Pulse Ox 98% ; bp Anastacio Coma Score: 00:33 Eye Response: spontaneous(4). Motor Response: obeys commands(6). Verbal Response: rv oriented(5). Total: 15. ED Course: 08/05 19:40 Inserted saline lock: 20 gauge in right hand, using aseptic technique. la4 21:17 Arm band placed on. bp 21:17 Patient has correct armband on for positive identification. Bed in low position. Call bp light in reach. Side rails up X2. 21:19 Patient arrived in ED. rv1 21:19 Benjamin Restrepo MD is Attending Physician. ec2 21:25 Ben Edwards, RN is Primary Nurse. bp 21:26 Triage completed. bp 21:29 XRAY Chest (1 view) Sent. bp 21:40 XRAY Chest (1 view) In Process Unspecified. EDMS 22:05 Inserted saline lock: 20 gauge forearm, using aseptic technique. la4 08/06 00:33 Provided Education on: uti. rv 00:33 No provider procedures requiring assistance completed. IV discontinued, intact, rv bleeding controlled, No redness/swelling at site. Pressure dressing applied. Administered Medications: 08/05 22:30 Drug: Rocephin IV 1 grams IV at calculated rate once; Given slow IV push per pharmacy la4 instructions {Note: IV push.} Route: IV; Rate: calculated rate; Infused Over: 5 mins; Site: right forearm; Delivery: Primary tubing; 08/06 00:25 Follow up: IV Status: Completed infusion; IV Intake: 50ml bp 08/05 22:31 Drug: Acetaminophen PO 1000 mg PO once Route: PO; la4 08/06 00:25 Follow up: Response: No adverse reaction bp 08/05 22:31 Drug: NS 0.9% IV 1000 ml IV at 1 bolus Per protocol; 1000 mL bolus Route: IV; Rate: 1 la4 bolus; Infused Over: 30 mins; Site: right forearm; Delivery: Primary tubing; 08/06 00:25 Follow up: IV Status: Completed infusion; IV Intake: 1000ml bp Medication: 08/05 21:17 VIS not applicable for this client. bp Intake: 08/06 00:25 IV: 50ml; Total: 50ml. bp 00:25 IV: 1000ml; Total: 1050ml. bp Outcome: 00:07 Discharge ordered by . ec2 00:33 Discharged to home ambulatory, with family, rv 00:33 Condition: improved 00:33 Discharge instructions given to patient, family, Instructed on discharge instructions, follow up and referral plans. medication usage, Demonstrated understanding of instructions, follow-up care, medications, Prescriptions given X 1, 00:34 Patient left the ED. rv Signatures: Dispatcher [employer] EDRos Clinton RN RN Ben Edwards RN RN bp Vicente, Ronaldo, RN RN rv Venus Cooper rv1 Benjamin Restrepo MD MD ec2 Lia Dunlap RN RN la4 Corrections: (The following items were deleted from the chart) 00:26 00:24 BP 109 / 55; Pulse 76bpm; Resp 15bpm; Pulse Ox 98%; bp bp
[2023-08-06 05:04] VITALS: BP 109/55; TEMP 99.1; O2SAT 98
--- NOTE | 2023-08-06 12:24 | EKG ---
Test Date: 2023-08-05 Test Time: 21:35:44 Real Estate Administrator: ANDREA MEASUREMENT RESULTS: Intervals: Rate: 86 SD: 114 QRSD: 86 QT: 356 QTc: 426 [place]: P: 37 SD: 114 QRS: 22 T: 45 INTERPRETIVE STATEMENTS: Normal sinus rhythm Normal ECG Compared to ECG 01/19/2022 20:14:26 Sinus bradycardia no longer present Electronically Signed On 08-06-23 12:23:17 CDT by Guy Tyler
== END 2023-08-06 00:34 | disposition home or self-care (01) ==
LOC: ER 21:17
DX: N39.0 Urinary tract infection, site not specified (principal); I10 Essential (primary) hypertension; Z95.818 Presence of other cardiac implants and grafts; Z88.0 Allergy status to penicillin; Z88.1 Allergy status to other antibiotic agents; Z88.2 Allergy status to sulfonamides; Z88.3 Allergy status to other anti-infective agents; Z88.5 Allergy status to narcotic agent
CPT/HCPCS: 93005; 87040 ×2; 85025; 81001; 80048; 36415; 87205 ×2; 83605; 71045; J7030; J0696

== ENCOUNTER 2023-08-06 15:20 | Inpatient (IN) | payer OTHER ==
--- OUTSIDE RECORDS SUMMARY | 2023-08-06 15:22 | XMS REPORT | Continuity of Care Document ---
:1950 Author Organization [facility] t Address [address] [facility]. [address] [place] [address] Care Team Providers Name Role Phone Claire [...] Facility Department ID 2023-05-28 2023-05-28 Outpatient ANDRÉS SFA [id number] 07:14:04 07:14:04 [id number] F Ricardo 2021-07-05 2021-07-05 Outpatient GCCOVIDV GCCOVIDV [id number] GCCOVID 00:00:00 00:00:00 V 2021-06-11 2021-06-11 Outpatient GCCOVIDV GCCOVIDV [id number] GCCOVID 00:00:00 00:00:00 V Results Test Description Test Time Test Comments Results Result Comments Source COMPREHENSIVE METABOLIC PANEL 2023-02-04 06:16:28 Test Item Value Reference Range Interpretation Comme nts GLUCOSE (test code = 2217) 103 MG/DL 70-99 H BUN (test code = 2208) 25 MG/DL 8-23 H CREATININE (test code = 0.88 MG/DL 0.60-1.30 2214) eGFR (2020 CKD-EPI) (test 69 ML/MIN/1.73 >60 code = 67830) CALC BUN/CREAT (test code = 28 RATIO [...] code = 2219) 12 U/L 5-40 LIPID [id number] 06:16:28 Test Item Value Reference Range Interpretation [...] care and clinical consultation. S ee URL: [email or web address]. UNLES S OTHERWISE INDIC ATED, ALL TESTING PER FORMED AT [facility] [employer] FORMERLY [facility]. [address] [place] [address] VIN GARCIA DIRECTOR: Marifer KILGORE YONI NUMBER [id number] CAP ACCREDITATION N O. [id number] URINALYSIS W/REFLEX [id number] 05:41:32 Test Item Value Reference Range Interpretation [...] ed message] code = 1510) The system Saisei generated this result transmitted ref erence range: [...] (test 11-15 /HPF 0-10 A code = 33162) BACTERIA (test code = 1+ NONE SEEN A 1515) CASTS, HYALINE (test NONE SEEN NONE-TRACE code = 1517) CBC W/AUTO DIFF WITH [id number] 05:13:37 Test Item Value Reference Range Interpretation [...] RBCS 0.00 K/UL 0.00-0.11 (test code = 40332) SARS-CoV-2 (COVID-19), RT-PCR/[id number] 10:18:51 Test Item Value Reference Interpretation Comments Range SARS-CoV-2 NEGATIVE SEE NOTE SARS-CoV-2 RNA NOT INTERPRETATION DETECTEDNegat devi (test code = 58874) results do not preclude SARS-CoV-2 infe ction [...] code = NOT SPECIF[place]: [place] [address]) Franky Earl Haydee l-Time RT-PCR. The exp ected result or [...] provided by met hod given in report:https:// [email or web address] [email or web address] nt-[email or web address] ns/ Alternatively, see downloadable PD F fact sheet at:https://www. [email or web address]/COVID-19-RT -PCR UNLESS OTHERWIS E INDICATED, ALL TESTING PERFORMED [facility] NICAL PATHOLOGY LABOR [employer] [address] [place] [address] 97 4 LABORATORY DIRE CTOR: RACIEL GALINDO M.D. CLIA NUMBER [id number] [place] [id number] SURGICAL PATHOLOGY, LEVEL [id number] 11:54:[address] [address] Laboratory Printed: 02/26/17 [facility] DAEMPathology Page: 1 Patient: EUSEBIA ZAVALETA Birthdate: 1950 Age/Sex: 66/F Spec#: [id number]: Claire Rice Specimen Date: 02/24/17 Received Date: 02/25/17 Specimen: SKIN CLINICAL DIAGNOSIS L98.9 PATHOLOGIC DIAGNOSIS Skin, abdomen, excision: - Irritated, inflamed seborrheic keratosis. - No dysplasia or malignancy identified. Pathologist:Jayson Cowan MD Entered by:02/26/17 - 1144 LAB.YGP PROCEDURES: 69611 GROSS DESCRIPTION A. SKIN ABDOMEN The specimen is received in 10% formalin, and is labeled with the patient's name and tissuerequest. Accompanying paperwork says "abdomen". The specimen consists of a borrero-pinkpolypoid slightlypedunculated tissue fragment measuring 1.2 x 1.0 x 0.5 cm in greatestdimensions. The deep margin is inked black. Both ends are shaved, and the remainingfragment is cross sectioned and entirely submitted in two cassettes, A1-2. Section code:A1 - ends Patient: EUSEBIA ZAVALETA Re02/24/17Loc: HPCALDAcct#: [id number] MR#: [id number] CONTINUED ON NEXT PAGE Dis: Sta: DEP CLI [facility] [address] [place] [address] Laboratory Printed: 02/26/17 [address] [facility] DAEM[facility]ology Page: 2 Patient: EUSEBIA ZAVALETA [id number] (Continued) -- GROSS DESCRIPTION(Continued) A2 - cross sections Dictated by: Vidhi Varela Entered by: 02/25/17 3525 LAB.YGP MICROSCOPIC DESCRIPTION A microscopic examination was performed to arrive at the diagnostic conclusion reported. Signed (Electronically Signed) Jayson Cowan MD 02/26/17 Patient: EUSEBIA ZAVALETAYCE Re02/24/17Loc: JESS MR#: [id number] END OF REPORT Dis: Sta: DEP CLI
[2023-08-06 16:27] LABS: Absolute Lymphocytes (CBC) 0.4 K/uL (0.7-4.9); Hematocrit 31.1 % (36.0-45.0); Lymphocytes % 14.7 % (15.3-44.8); MCV 87.2 fL (80-100); MPV 10.7 fL (7.6-11.3); Platelets 77 thou/uL (152-406); RBC Red Blood Cell Count 3.57 M/uL (3.86-4.86)
[2023-08-06] MEDS ORDERED: CEFTRIAXONE 1000 MG/VIAL ONE (16:31)
[2023-08-06] MEDS ORDERED: NA CHLORIDE 0.9% 50 ML ONE (16:32)
[2023-08-06 16:40] LABS: Albumin 3.1 g/dL (3.4-5.0); Bilirubin Total 1.7 mg/dL (0.2-1.0); Potassium 3.1 mEq/L (3.5-5.1); Protein, Total 6.5 g/dL (6.4-8.2)
[2023-08-06 17:13] LABS: Blood Morphology Comment NOT SEEN (NOT SEEN); Platelet Estimate DECR; White Blood Cell Scan OK (OK)
--- NOTE | 2023-08-06 17:18 | P.HP ---
Certification for Inpatient Patient admitted to: Inpatient With expected LOS: <2 Midnights Patient will require the following post-hospital care: None Practitioner: I am a practitioner with admitting privileges, knowledge of patient current condition, hospital course, and medical plan of care. Services: Services provided to patient in accordance with Admission requirements found in Title 42 Section 412.3 of the Code of Federal Regulations Patient History Date of Service: 08/07/23 Reason for admission: Bacteremia History of Present Illness: 73-year-old female with a past medical history of dementia, COPD, hyperlipidemia, hypertension, ME status post PCI, presents to the emergency room with positive blood cultures gram-negative. Patient was seen in the emergency room yesterday cultures were drawn, patient presented yesterday with mild confusion family reports mental status is better today. No reported fever, chills, dysuria, chest pain, shortness of breath. Plan to admit for gram- negative bacteremia, acute cystitis. Infectious disease consulted, up-to-date recommends cefepime 2 g every 8 hours initiated for bacteremia. ER evaluation n o leukocytosis, normocytic anemia, mild hypokalemia 3.1, acute on chronic kidney injury, unknown baseline BUN 28 creatinine 1.14, estimated GFR 51, blood glucose 124, UA from yesterday positive greater than 500 leukoesterase, greater than 50 WBCs greater than 50 RBCs nitrite negative, CT of the head Allergies cameron Allergy (Severe, Verified 08/06/23 20:09) Hives azithromycin [From Zithromax] Allergy (Verified 08/06/23 20:09) Hives ciprofloxacin [From Cipro] Allergy (Verified 08/06/23 20:09) Hives morphine Allergy (Verified 08/06/23 20:09) Hives Penicillins Allergy (Verified 08/06/23 20:09) Hives Sulfa (Sulfonamide Antibiotics) Allergy (Verified 08/06/23 20:09) Hives tetracycline [Tetracycline] Allergy (Verified 08/06/23 20:09) Hives codeine [Codeine] Adverse Reaction (Intermediate, Verified 08/06/23 20:09) hallucinations Home Medications: Metoprolol Tartrate 1 tab PO BID 11/08/19 PARoxetine HCL [Paroxetine HCl] 10 mg PO DAILY 11/08/19 Fluticasone/Umeclidin/Vilanter [Trelegy Ellipta 100-62.5-25] 1 each IH DAILY 01/20/22 Pantoprazole Sodium [Protonix] 1 tab PO DAILY 01/20/22 Atorvastatin Calcium [Lipitor] 40 mg PO BEDTIME 08/06/23 Furosemide [Lasix*] 20 mg PO DAILYPRN PRN 08/06/23 Sacubitril/Valsartan [Entresto 49 mg-51 mg Tablet] 1 tab PO BID 08/06/23 - Past Medical/Surgical History Diabetic: No -: COPD -: HTN -: asthma -: HLD -: mini stroke (2012) -: DVT left leg -: Dementia -: bladder sling X2 -: kidney surgery -: hysterectomy -: tubal igation -: heart stent (2012) Psychosocial/ Personal History: Lives at home with her daughter - Family History Father -: Heart disease, Cancer, Kidney disease Notes: prostate. esrd Mother -: Cancer Notes: lymph node CA - Social History Alcohol use: Yes CD- Drugs: No Caffeine use: Yes Review of Systems 10-point ROS is otherwise unremarkable Physical Examination - Physical Exam General: Alert, In no apparent distress, Oriented x3, Other (Mild confusion) HEENT: Atraumatic, Normocephalic, PERRLA Neck: Supple, 2+ carotid pulse no bruit Respiratory: Clear to auscultation bilaterally, Normal air movement Cardiovascular: No edema, Normal pulses Gastrointestinal: Normal bowel sounds, Soft and benign Musculoskeletal: No clubbing, No swelling Neurological: Normal gait, Normal speech, Normal strength at 5/5 x4 extr - Studies Laboratory Data (last 24 hrs) 08/06/23 08/06/23 16:10 16:10 WBC 2.60 L Hgb 10.6 L Hct 31.1 L Plt Count 77 L Sodium 137 Potassium 3.1 L D BUN 28 H Creatinine 1.14 H Glucose 124 H Total Bilirubin 1.7 H AST 32 ALT 30 Alkaline Phosphatase 89 Assessment and Plan - Plan Assessment plan Gram-negative bacteremia, acute Cystitis, acute Acute on chronic kidney injury unknown baseline Thrombocytopenia Mild hypokalemia dementia COPD stable hyperlipidemia hypertension History ME status post PCI DVT prophylaxis Assessment plan Gram-negative bacteremia, acute Cystitis, acute Infectious disease consult, cefepime 2 g every 8 per up-to-date recommendations, Trend WBCs, trend cultures positive blood cultures gram-negative. Patient was seen in the emergency room yesterday cultures were drawn, patient presented yesterday with mild confusion family reports mental status is better today. UA from yesterday positive greater than 500 leukoesterase, greater than 50 WBCs greater than 50 RBCs nitrite negative, CT of the head CT of the head pending Acute on chronic kidney injury unknown baseline Gentle IV fluids, trend kidney function Avoid nephrotoxic medications acute on chronic kidney injury, unknown baseline BUN 28 creatinine 1.14, estimated GFR 51, Thrombocytopenia Trend platelets 77 heparin every 12 twice daily, stop if platelets drop Hypokalemia Trend electrolytes replace as needed mild hypokalemia 3.1, dementia COPD stable hyperlipidemia hypertension History ME status post PCI Resume appropriate home medications Full code Cardiac diet DVT heparin Discharge Plan: Home Plan to discharge in: 48 Hours - Advance Directives Does patient have a Living Will: No Does patient have a Durable POA for Healthcare: No - Code Status/Comfort Care Code Status: Full Code Physician Review: Patient Assessed, Agree with Above Assessment and Plan Critical Care: No Time Spent Managing Pts Care (In Minutes): 50
--- NOTE | 2023-08-06 17:44 | ER ---
Nurse's Notes [facility] Name: Sonal Scruggs Age: 73 yrs Sex: Female : 1950 Arrival Date: 08/06/2023 Time: 15:20 Bed 3 Private MD: Diagnosis: Gram-negative bacteremia Presentation: 08/06 15:35 Chief complaint: Patient states: was here last night, had blood cultures drawn and was iw called today to come in for IV antibiotics , she was diagnosed with a UTI, she had IV antibiotics last night, she was having blood in her urine and AMS, shaking, today she feels like she has chills, feels tired, denies pain with urination. Coronavirus screen: At this time, the client does not indicate any symptoms associated with coronavirus-19. Ebola Screen: Patient negative for fever greater than or equal to 101.5 degrees Fahrenheit, and additional compatible Ebola Virus Disease symptoms Patient denies exposure to infectious person. Patient denies travel to an Ebola-affected area in the 21 days before illness onset. No symptoms or risks identified at this time. Initial Sepsis Screen: Does the patient meet any 2 criteria? No. Patient's initial sepsis screen is negative. Does the patient have a suspected source of infection? No. Patient's initial sepsis screen is negative. Risk Assessment: Do you want to hurt yourself or someone else? Patient reports no desire to harm self or others. Onset of symptoms was August 06, 2023. 15:35 Method Of Arrival: Wheelchair iw 15:35 Acuity: CONY 3 iw Historical: - Allergies: 15:37 Azithromycin; iw 15:37 Ciprofloxacin HCl; iw 15:37 Codeine; iw 15:37 Morphine; iw 15:37 PENICILLINS; iw 15:37 Sulfa (Sulfonamide Antibiotics); iw 15:37 TETRACYCLINES; iw - PMHx: 15:37 Asthma; Chronic obstructive lung disease; COPD; Hyperlipidemia; Hypertension; iw Myocardial infarction; - PSHx: 15:37 heart stent; iw - Immunization history:: Adult Immunizations unknown. - Social history:: Smoking status: unknown. Screenin:14 [facility] ED Fall Risk Assessment (Adult) Score/Fall Risk Level 0 - 2 = Low Risk nj1 Oriented to surroundings, Maintained a safe environment, Hourly rounding (assess needs \T\ fall precautionary measures) done. Abuse screen: Denies threats or abuse. Denies injuries from another. Nutritional screening: No deficits noted. Tuberculosis screening: No symptoms or risk factors identified. Assessment: 16:14 General: Appears in no apparent distress. comfortable, Behavior is calm, cooperative, nj1 appropriate for age. Pain: Denies pain. Neuro: No deficits noted. Level of Consciousness is awake, alert, obeys commands, Oriented to person, place, time, situation. Cardiovascular: No deficits noted. Patient's skin is warm and dry. Respiratory: No deficits noted. Airway is patent Respiratory effort is even, unlabored. 17:10 Reassessment: Patient appears in no apparent distress at this time. Patient and/or nj1 family updated on plan of care and expected duration. Pain level reassessed. Patient is alert, oriented x 3, equal unlabored respirations, skin warm/dry/pink. Water pitcher given. Patient denies pain at this time. 18:30 Reassessment: Patient appears in no apparent distress at this time. Patient and/or nj1 family updated on plan of care and expected duration. Pain level reassessed. Patient is alert, oriented x 3, equal unlabored respirations, skin warm/dry/pink. Vital Signs: 15:37 BP 113 / 52; Pulse 81; Resp 18; Temp 99.1; Pulse Ox 97% on R/A; Weight 95.25 kg; Height iw 5 ft. 6 in. ; 16:31 BP 116 / 50; Pulse 79; Resp 18; Pulse Ox 96% ; ko1 16:46 BP 105 / 56; Pulse 72; Resp 16; Pulse Ox 97% ; ko1 17:14 BP 102 / 71; Pulse 84; Resp 19; Pulse Ox 98% ; ko1 18:29 BP 114 / 66; Pulse 72; Resp 14; Pulse Ox 96% on R/A; nj1 15:37 Body Mass Index 33.89 (95.25 kg, 167.64 cm) iw ED Course: 15:22 Patient arrived in ED. mg5 15:37 Triage completed. iw 15:37 Arm band placed on. iw 15:39 Mohit Reyes MD is Attending Physician. rt 15:41 Princess Hillman RN is Primary Nurse. ko1 16:10 Inserted saline lock: 22 gauge in right antecubital area, using aseptic technique. nj1 Blood collected. 16:15 Patient has correct armband on for positive identification. Bed in low position. Call nj1 light in reach. Side rails up X 1. Provided Education on: call light, fall precautions. 16:46 Client placed on continuous cardiac and pulse oximetry monitoring. NIBP monitoring ko1 applied. marketing executive on. Door closed. Noise minimized. Lights dimmed. Warm blanket given. 16:46 No provider procedures requiring assistance completed. ko1 17:05 CT Head Brain wo Cont In Process Unspecified. EDMS 17:42 Albert Hunter is Hospitalizing Provider. rt 19:03 Patient admitted, IV remains in place. nj1 Administered Medications: 16:31 Drug: Rocephin - Rocephin (cefTRIAXone) IVPB 1 grams IVPB once over 30 mins; (mix in 50 ko1 mL NS) Route: IVPB; Infused Over: 30 mins; Site: right antecubital; 17:00 Follow up: Response: No adverse reaction; IV Status: Completed infusion; IV Intake: [id number] Medication: 16:46 VIS not applicable for this client. ko1 Intake: 17:00 IV: 50ml; Total: 50ml. nj Outcome: 17:44 Decision to Hospitalize by Provider. rt 18:59 Admitted to Med/surg accompanied by tech, via stretcher, room 204, Report called to darvin Velásquez RN 18:59 Condition: stable 18:59 Instructed on the need for admit, 19:11 Patient left the ED. bp Addendum: 08/11/2023 09:03 Addendum: Culture Results: pt was called back to ER and admitted to hospital. b d Signatures: Dispatcher [employer] EDMS Jenise Bonds Irene, IRAJ GALO iw Ben Edwards RN RN bp Princess Hillman RN RN ko1 Mohit Reyes MD MD rt Jossy Newman RN RN nj1 Leni Oswald mg5 Corrections: (The following items were deleted from the chart) 08/06 18:57 18:29 BP 114 / 66; Pulse 72bpm; Resp 14bpm; Pulse Ox 96% 2 lpm Nasal Cannula; [place] [id number]
--- NOTE | 2023-08-06 17:44 | EDPHYS ---
Physician Documentation [facility] Name: Sonal Scruggs Age: 73 yrs Sex: Female : 1950 Arrival Date: 08/06/2023 Time: 15:20 Bed 3 Private MD: ED Physician Mohit Reyes HPI: 08/06 17:44 This 73 yrs old Female presents to ER via Wheelchair with complaints of Dr Called To rt Come In. 17:44 Patient was seen in the ED last night for altered mental status, dysuria. Patient was rt found to have a urinary tract infection without evidence of sepsis. Blood cultures were drawn. Patient did have improvement, subsequently was discharged. The blood cultures came back positive for gram-negative rods. Patient was called and told to come back for IV antibiotics. The patient's mental status has improved. The daughter states that she is concern for stroke, request a CT scan be performed of the head. She denies other acute complaints at this time, symptoms are moderate severity, no other aggravating or alleviating factors. Historical: - Allergies: 15:37 Azithromycin; iw 15:37 Ciprofloxacin HCl; iw 15:37 Codeine; iw 15:37 Morphine; iw 15:37 PENICILLINS; iw 15:37 Sulfa (Sulfonamide Antibiotics); iw 15:37 TETRACYCLINES; iw - PMHx: 15:37 Asthma; Chronic obstructive lung disease; COPD; Hyperlipidemia; Hypertension; iw Myocardial infarction; - PSHx: 15:37 heart stent; iw - Immunization history:: Adult Immunizations unknown. - Social history:: Smoking status: unknown. ROS: 17:44 Constitutional: Negative for fever, chills, and weight loss, Cardiovascular: Negative rt for chest pain, palpitations, and edema, Respiratory: Negative for shortness of breath, cough, wheezing, and pleuritic chest pain, Abdomen/GI: Negative for abdominal pain, nausea, vomiting, diarrhea, and constipation, MS/Extremity: Negative for injury and deformity, Skin: Negative for injury, rash, and discoloration, Exam: 17:44 Constitutional: This is a well developed, well nourished patient who is awake, alert, rt and in no acute distress. Head/Face: Normocephalic, atraumatic. Chest/axilla: Normal chest wall appearance and motion. Nontender with no deformity. No lesions are appreciated. Cardiovascular: Regular rate and rhythm with a normal S1 and S2. No gallops, murmurs, or rubs. Normal PMI, no JVD. No pulse deficits. Respiratory: Lungs have equal breath sounds bilaterally, clear to auscultation and percussion. No rales, rhonchi or wheezes noted. No increased work of breathing, no retractions or nasal flaring. Abdomen/GI: Soft, non-tender, with normal bowel sounds. No distension or tympany. No guarding or rebound. No evidence of tenderness throughout. Skin: Warm, dry with normal turgor. Normal color with no rashes, no lesions, and no evidence of cellulitis. MS/ Extremity: Pulses equal, no cyanosis. Neurovascular intact. Full, normal range of motion. Neuro: Awake and alert, GCS 15, oriented to person, place, time, and situation. Cranial nerves II-XII grossly intact. Motor strength 5/5 in all extremities. Sensory grossly intact. Cerebellar exam normal. Normal gait. Vital Signs: 15:37 BP 113 / 52; Pulse 81; Resp 18; Temp 99.1; Pulse Ox 97% on R/A; Weight 95.25 kg; Height iw 5 ft. 6 in. ; 16:31 BP 116 / 50; Pulse 79; Resp 18; Pulse Ox 96% ; ko1 16:46 BP 105 / 56; Pulse 72; Resp 16; Pulse Ox 97% ; ko1 17:14 BP 102 / 71; Pulse 84; Resp 19; Pulse Ox 98% ; ko1 18:29 BP 114 / 66; Pulse 72; Resp 14; Pulse Ox 96% on R/A; nj1 15:37 Body Mass Index 33.89 (95.25 kg, 167.64 cm) iw MDM: 15:42 Patient medically screened. rt 17:44 Differential Diagnosis Bacteremia, UTI. Data reviewed: vital signs, nurses notes, old rt medical records, lab test result(s), radiologic studies. Consideration of Admission/Observation Patient was admitted/placed on observation. Management of patient was discussed with the following: Hospitalist: Agrees to admit. I considered the following discharge prescriptions or medication management in the emergency department Medications were administered in the Emergency Department. See MAR. Independent interpretation of the following test(s) in the Emergency Department CT Scan: My interpretation is No hemorrhage seen on my interpretation of CT scan images. Test considered but Not performed: Labs: Repeat blood cultures not indicated. Care significantly affected by the following chronic conditions: Chronic Obstructive Pulmonary Disease. Counseling: I had a detailed discussion with the patient and/or guardian regarding the historical points, exam findings, and any diagnostic results supporting the discharge/admit diagnosis, lab results, radiology results, the need for further work-up and treatment in the hospital. 08/06 15:58 Order name: CBC with Diff; Complete Time: 17:26 rt 08/06 15:58 Order name: CMP; Complete Time: 16:58 rt 08/06 15:58 Order name: Lactate w/ 2H reflex if indic.; Complete Time: 16:41 rt 08/06 16:31 Order name: CBC Smear Scan; Complete Time: 17:26 EDMS 08/06 15:58 Order name: CT Head Brain wo Cont rt 08/06 17:24 Order name: CONS Physician Consult EDMS 08/06 15:58 Order name: Cardiac monitoring; Complete Time: 16:31 rt 08/06 15:58 Order name: IV Saline Lock - Large Bore; Complete Time: 16:13 rt 08/06 15:58 Order name: Labs collected and sent; Complete Time: 16:13 rt 08/06 15:58 Order name: O2 Per Protocol; Complete Time: 16:31 rt 08/06 15:58 Order name: O2 Sat Monitoring; Complete Time: 16:31 rt 08/06 15:58 Order name: Vital Signs; Complete Time: 16:31 rt Administered Medications: 16:31 Drug: Rocephin - Rocephin (cefTRIAXone) IVPB 1 grams IVPB once over 30 mins; (mix in 50 ko1 mL NS) Route: IVPB; Infused Over: 30 mins; Site: right antecubital; 17:00 Follow up: Response: No adverse reaction; IV Status: Completed infusion; IV Intake: [id number] Disposition Summary: 08/06/23 17:44 Hospitalization Ordered Notes: Hospitalization Status: Inpatient Admission rt Provider: Albert Hunter rt Location: Telemetry/MedSurg (Inpatient) rt Condition: Stable rt Problem: new rt Symptoms: are unchanged rt Bed/Room Type: Standard rt Room Assignment: 204(08/06/23 18:12) bd Diagnosis - Gram-negative bacteremia rt Forms: - Medication Reconciliation Form rt - SBAR form rt - Leadership Thank You Letter rt Signatures: Dispatcher [employer] Jenise Keene bd Ros Rubio, RN IRAJ iw Princess Hillman RN RN ko1 Mohit Reyes MD MD rt Jossy Newman RN RN nj1 Corrections: (The following items were deleted from the chart) 18:12 17:44 rt bd
--- NOTE | 2023-08-06 18:10 | RAD REPORT ---
EXAM DESCRIPTION: CT - Head Brain Wo Cont - 08/06/2023 5:04 pm CLINICAL HISTORY: ams COMPARISON: HEAD BRAIN W O CONTRAST dated 12/27/2013; HEAD BRAIN W O CONTRAST dated 09/11/2013 TECHNIQUE: Noncontrast head CT images were obtained without IV contrast. Multiplanar reformats were generated and reviewed. All CT scans are performed using dose optimization technique as appropriate and may include automated exposure control or mA/KV adjustment according to patient size. FINDINGS: No intracranial hemorrhage, mass, or edema. Midline structures are unremarkable. Normal ventricular caliber for age. Griffin-white matter differentiation is preserved, without evidence of acute infarct. No abnormal extra- axial fluid collections. Mild burden of periventricular and deep white matter hypodensities, stable, and nonspecific, most sug gestive of chronic small vessel ischemic changes. Mastoid air cells and visualized portions of the paranasal sinuses are clear. No acute bony findings. IMPRESSION: No evidence of an acute intracranial process.
[2023-08-06] MEDS ORDERED: ACETAMINOPHEN 500 MG TAB PO PRN (19:55)
[2023-08-06] MEDS ORDERED: ONDANSETRON 4 MG/2 ML VIAL IV PRN (19:55)
[2023-08-06] MEDS ORDERED: POTASSIUM 25 MEQ EFFERV TAB PO ONE (20:21)
[2023-08-06] MEDS: NA CHLORIDE 0.9% 1,000 ML IV SCH (20:33)
[2023-08-06] MEDS: CALCIUM CARBONATE CHEW 500MG TAB PO PRN (23:03)
[2023-08-06] MEDS: CEFEPIME 2 GM in NA CHLORIDE 0.9% 100 ML IV SCH (23:16)
[2023-08-06] MEDS: HEPARIN 5000 UNIT/ML 1 ML VIAL SQ SCH (23:17)
[2023-08-06 23:50] VITALS: BMI 33.9
[2023-08-07 02:37] LABS: Absolute Lymphocytes (CBC) 0.7 K/uL (0.7-4.9); Lymphocytes % 24.3 % (15.3-44.8); MCV 86.5 fL (80-100); Platelets 73 thou/uL (152-406); RBC Red Blood Cell Count 3.35 M/uL (3.86-4.86)
[2023-08-07 03:31] LABS: Potassium 3.5 mEq/L (3.5-5.1)
[2023-08-07 03:55] LABS: Blood Morphology Comment NOTED (NOT SEEN); Platelet Estimate DECR; White Blood Cell Scan OK (OK)
[2023-08-07 03:56] LABS: Poikilocytosis 1+
[2023-08-07] MEDS ORDERED: INFLUENZA VACCINE (for 6+ mo) 0.5 ML DOSE IMVAC ONE (09:00)
[2023-08-07] MEDS ORDERED: POTASSIUM CL SA 10 MEQ TAB PO ONE (09:00)
[2023-08-07] MEDS: HEPARIN 5000 UNIT/ML 1 ML VIAL SQ SCH ×2 (09:00→21:03)
[2023-08-07] MEDS: NA CHLORIDE 0.9% 1,000 ML IV SCH ×2 (09:15→15:26)
[2023-08-07] MEDS: CEFEPIME 2 GM in NA CHLORIDE 0.9% 100 ML IV SCH ×2 (10:16→17:58)
--- NOTE | 2023-08-07 12:07 | P.PN ---
Subjective Date of Service: 08/07/23 Chief Complaint: Bacteremia Subjective: Improving (Patient is doing better admitted with rigors fever and chills patient had bacteremia) Review of Systems 10-point ROS is otherwise unremarkable Physical Examination - Vital Signs Temperature: 98.3 F Blood Pressure: 122/65 Pulse: 73 Respirations: 14 Pulse Ox (%): 95 - Physical Exam General: Alert, Oriented x3, Oriented x2 Neck: Supple Respiratory: Clear to auscultation bilaterally Cardiovascular: No edema, Normal pulses - Studies Laboratory Data (last 24 hrs) 08/06/23 08/06/23 16:10 16:10 WBC 2.60 L Hgb 10.6 L Hct 31.1 L Plt Count 77 L Sodium 137 Potassium 3.1 L D BUN 28 H Creatinine 1.14 H Glucose 124 H Total Bilirubin 1.7 H AST 32 ALT 30 Alkaline Phosphatase 89 Assessment And Plan - Current Problems (Diagnosis) (1) Bacteremia Current Visit: Yes Status: Acute Plan: It is 73 years of age was recently discharged from the emergency room was readmitted again with a fever and rigors cultures are positive for gram-negative rods suspect E. coli bacteremia patient appears to be pancytopenic will need to be evaluated likely is all acute E. coli was isolated in the urine last year continue with IV fluids antibiotics await cultures possible discharge a.m. Physician Review: Patient Assessed, Agree with Above Assessment and Plan
[2023-08-07] MEDS: CALCIUM CARBONATE CHEW 500MG TAB PO PRN (15:36)
[2023-08-07] MEDS: PANTOPRAZOLE 40MG TABLET PO SCH (17:54)
[2023-08-07] MEDS: PARoxetine HCL 10 MG TAB PO SCH (17:55)
[2023-08-07 20:55] VITALS: O2SAT 95
[2023-08-07] MEDS ORDERED: ATORVASTATIN 40 MG TAB PO SCH (21:00)
[2023-08-07] MEDS: METOPROLOL TAR 25 MG TAB PO SCH (21:02)
[2023-08-07] MEDS: SACUBITRIL/VALSARTAN 49/51 MG TAB PO SCH (21:02)
[2023-08-08] MEDS: CEFEPIME 2 GM in NA CHLORIDE 0.9% 100 ML IV SCH ×2 (01:21→10:22)
[2023-08-08 03:27] LABS: Absolute Lymphocytes (CBC) 0.7 K/uL (0.7-4.9); Hematocrit 28.1 % (36.0-45.0); Lymphocytes % 22.6 % (15.3-44.8); MPV 11.9 fL (7.6-11.3); Platelets 83 thou/uL (152-406); RBC Red Blood Cell Count 3.23 M/uL (3.86-4.86)
[2023-08-08 03:36] LABS: Potassium 4.2 mEq/L (3.5-5.1)
[2023-08-08] MEDS ORDERED: PARoxetine HCL 10 MG TAB PO SCH ×4 (09:00→16:30)
[2023-08-08] MEDS ORDERED: HOME MED 1 EA UNK (Paroxetine Hcl [Paroxetine Hcl] 20 MG Tablet) PO SCH (09:00)
[2023-08-08] MEDS ORDERED: HOME MED 1 EA UNK (Fluticasone/Umeclidin/Vilanter [Trelegy Ellipta 100-62.5-25] Blst.W.Dev IH SCH (09:00)
--- NOTE | 2023-08-08 09:28 | P.CNS ---
Date of Consult: 08/08/23 Reason for Consult: e.coli bacteremia Chief Complaint: Bacteremia History of Present Illness: Patient is a 73 yo female with a past medical history of dementia, COPD, hypertension, hyperlipidemia who presented to the ED due to positive blood cultures. She was seen in the ED 08/05 for mild confusion during which blood cultures were drawn. She was instructed to return to the ED due to E.coli bacteremia. Infectious disease was consulted. Allergies cameron Allergy (Severe, Verified 08/06/23 20:09) Hives azithromycin [From Zithromax] Allergy (Verified 08/06/23 20:09) Hives ciprofloxacin [From Cipro] Allergy (Verified 08/06/23 20:09) Hives morphine Allergy (Verified 08/06/23 20:09) Hives Penicillins Allergy (Verified 08/06/23 20:09) Hives Sulfa (Sulfonamide Antibiotics) Allergy (Verified 08/06/23 20:09) Hives tetracycline [Tetracycline] Allergy (Verified 08/06/23 20:09) Hives codeine [Codeine] Adverse Reaction (Intermediate, Verified 08/06/23 20:09) hallucinations Home medications list reviewed: Yes Home Medications: Metoprolol Tartrate 1 tab PO BID 11/08/19 PARoxetine HCL [Paroxetine HCl] 10 mg PO DAILY 11/08/19 Fluticasone/Umeclidin/Vilanter [Trelegy Ellipta 100-62.5-25] 1 each IH DAILY 01/20/22 Pantoprazole Sodium [Protonix] 1 tab PO DAILY 01/20/22 Atorvastatin Calcium [Lipitor] 40 mg PO BEDTIME 08/06/23 Furosemide [Lasix*] 20 mg PO DAILYPRN PRN 08/06/23 Sacubitril/Valsartan [Entresto 49 mg-51 mg Tablet] 1 tab PO BID 08/06/23 levoFLOXacin [Levaquin*] 500 mg PO DAILY 14 Days #14 tab 08/08/23 - Past Medical/Surgical History Diabetic: No -: COPD -: HTN -: asthma -: HLD -: mini stroke (2012) -: DVT left leg -: Dementia -: ME -: bladder sling X2 -: kidney surgery -: hysterectomy -: tubal igation -: heart stent (2012) Psychosocial/ Personal History: Lives at home with her daughter - Family History Father Medical History: Heart disease, Cancer, Kidney disease Notes: prostate. esrd Mother Medical History: Cancer Notes: lymph node CA - Social History Smoking Status: Unknown if ever smoked Alcohol use: Yes CD- Drugs: No Caffeine use: Yes Place of Residence: Home Review of Systems Unremarkable Physical Examination Temp Pulse Resp BP Pulse Ox 97.9 F 62 18 117/60 98 08/08/23 04:00 08/08/23 04:00 08/08/23 04:00 08/08/23 04:00 08/08/23 04:00 General: Alert, In no apparent distress, Oriented x3 HEENT: Atraumatic, Normocephalic Neck: Supple, JVD not distended Respiratory: Clear to auscultation bilaterally, Normal air movement Cardiovascular: No edema, Regular rate/rhythm Gastrointestinal: Normal bowel sounds, Soft and benign Integumentary: No rashes Neurological: Normal speech, Normal tone, Normal affect Laboratory Data - Reviewed Microbiology Data - Reviewed Imagings Data: - Reviewed Conclusions/Impression: Problem List E.coli Bacteremia Hypertension Hyperlipidemia COPD hx ME s/p PCI Escherichia coli Bacteremia - Multiple drug allergies - Blood cultures 08/05: Escherichia coli in 2 of 4 bottles Patient states she is not allergic to Levaquin, has taken Levaquin in the past with no adverse reactions. QTc 426 - Afebrile Recommendations - E.coli Bacteremia: Switch patient to Levaquin PO to complete 14 days of antibiotic therapy. Patient educated on antibiotic side effects, instructed to complete full course of antibiotic as ordered. - Follow up with PCP in 1-2 weeks Case discussed with Soham Payton
[2023-08-08 10:09] VITALS: BP 129/55; TEMP 97
[2023-08-08] MEDS: METOPROLOL TAR 25 MG TAB PO SCH (10:20)
[2023-08-08] MEDS: HEPARIN 5000 UNIT/ML 1 ML VIAL SQ SCH (10:21)
[2023-08-08] MEDS: PANTOPRAZOLE 40MG TABLET PO SCH (10:21)
[2023-08-08] MEDS: SACUBITRIL/VALSARTAN 49/51 MG TAB PO SCH (10:34)
[2023-08-08] MEDS: PARoxetine HCL 10 MG TAB PO SCH (10:34)
--- NOTE | 2023-08-08 11:53 | P.DS ---
Admission Date: 08/06/23 Discharge Date: 08/08/23 Disposition: ROUTINE DISCHARGE Discharge Condition: GOOD Reason for Admission: Bacteremia - Problems (1) Bacteremia Current Visit: Yes Status: Acute Brief History of Present Illness: Patient is 73 years of age admitted with rigors she did have E. coli bacteremia Hospital Course: Was admitted to the hospital and treated with IV cefepime did well no complications during the stay E. coli was pansensitive patient was discharged home on levofloxacin patient stated that she is intolerant to Cipro but cannot take levofloxacin factious disease was also consulted to remain on 14 days of levofloxacin at time of discharge doing well alert oriented x3 chest clear cardiovascular stoma sounds normal no new complaint vital signs all stable repeat blood cultures In addition patient has pancytopenia not sure if this is acute or chronic advised her to follow-up with her primary care physician and to have a repeat blood work done in 2 weeks may need a bone marrow biopsy Vital Signs/Physical Exam: Temp Pulse Resp BP Pulse Ox 97.0 F 62 14 129/55 L 92 08/08/23 08:00 08/08/23 10:20 08/08/23 08:00 08/08/23 10:20 08/08/23 08:00 Laboratory Data at Discharge: WBC 3.30 thou/uL (4.3-10.9) L 08/08/23 02:10 Hgb 9.6 g/dL (12.0-15.0) L 08/08/23 02:10 Hct 28.1 % (36.0-45.0) L 08/08/23 02:10 Plt Count 83 thou/uL (152-406) L 08/08/23 02:10 Sodium 140 mEq/L (136-145) 08/08/23 02:10 Potassium 4.2 mEq/L (3.5-5.1) D 08/08/23 02:10 BUN 22 mg/dL (7-18) H 08/08/23 02:10 Creatinine 0.89 mg/dL (0.55-1.02) 08/08/23 02:10 Glucose 130 mg/dL (74-106) H 08/08/23 02:10 Magnesium 2.0 mg/dL (1.6-2.4) 08/08/23 02:10 Total Bilirubin 1.7 mg/dL (0.2-1.0) H 08/06/23 16:10 AST 32 U/L (15-37) 08/06/23 16:10 ALT 30 U/L (13-56) 08/06/23 16:10 Alkaline Phosphatase 89 U/L (45-117) 08/06/23 16:10 Home Medications: Metoprolol Tartrate 1 tab PO BID 11/08/19 PARoxetine HCL [Paroxetine HCl] 10 mg PO DAILY 11/08/19 Fluticasone/Umeclidin/Vilanter [Trelegy Ellipta 100-62.5-25] 1 each IH DAILY 01/20/22 Pantoprazole Sodium [Protonix] 1 tab PO DAILY 01/20/22 Atorvastatin Calcium [Lipitor] 40 mg PO BEDTIME 08/06/23 Furosemide [Lasix*] 20 mg PO DAILYPRN PRN 08/06/23 Sacubitril/Valsartan [Entresto 49 mg-51 mg Tablet] 1 tab PO BID 08/06/23 levoFLOXacin [Levaquin*] 500 mg PO DAILY 14 Days #14 tab 08/08/23 New Medications: levoFLOXacin [Levaquin*] 500 mg PO DAILY 14 Days #14 tab Physician Discharge Instructions: follow up with Dr. Pedersen in 2 -4 wks needs blood count checked Diet: Regular Activity: Ad ron Followup: KASSIE PEDERSEN [Primary Care Provider] -
[2023-08-08] MEDS ORDERED: INFLUENZA VACCINE (for 6+ mo) 0.5 ML DOSE IMVAC ONE (13:00)
[2023-08-08] MEDS ORDERED: PANTOPRAZOLE 40MG TABLET PO SCH (17:26)
== END 2023-08-08 14:43 | disposition home or self-care (01) | DRG 690 ==
LOC: ER 15:20 → ERHOLD 17:21 → 2ND 18:39
PROVIDERS: ADMIT Internal Medicine Sleep Medicine; ATTEND Internal Medicine Sleep Medicine
DX: N30.00 Acute cystitis without hematuria (principal); N17.9 Acute kidney failure, unspecified; R78.81 Bacteremia; D61.818 Other pancytopenia; E78.5 Hyperlipidemia, unspecified; E87.6 Hypokalemia; I12.9 Hypertensive chronic kidney disease with stage 1 through stage 4 chronic kidney disease, or unspecified chronic kidney disease; N18.9 Chronic kidney disease, unspecified; D63.1 Anemia in chronic kidney disease; J44.9 Chronic obstructive pulmonary disease, unspecified; F03.90 Unspecified dementia, unspecified severity, without behavioral disturbance, psychotic disturbance, mood disturbance, and anxiety; I25.2 Old myocardial infarction; B96.20 Unspecified Escherichia coli [E. coli] as the cause of diseases classified elsewhere; Z88.1 Allergy status to other antibiotic agents; Z88.5 Allergy status to narcotic agent; Z88.2 Allergy status to sulfonamides; Z88.0 Allergy status to penicillin; Z88.8 Allergy status to other drugs, medicaments and biological substances; Z95.5 Presence of coronary angioplasty implant and graft; Z86.73 Personal history of transient ischemic attack (TIA), and cerebral infarction without residual deficits; Z98.51 Tubal ligation status; Z79.899 Other long term (current) drug therapy; Z91.018 Allergy to other foods; Z90.710 Acquired absence of both cervix and uterus; Z86.718 Personal history of other venous thrombosis and embolism
CPT/HCPCS: 36415; 70450; 80048; 80053; 83605; 83735; 84132; 85025; 90471; 96365; 99285; J0692; J0696; J1644; J2405; J7030; Q2035

== ENCOUNTER → 2023-11-04 | Emergency (ER) | payer OTHER ==
[~2023-11-04] MED LIST: ALBUTEROL 2.5 MG/3 ML NEB SOL ONE; IPRATROPIUM BROM 0.5MG/2.5ML ONE; METHYLPREDNISOLONE 125 MG INJ ONE
--- OUTSIDE RECORDS SUMMARY | 2023-11-04 05:25 | XMS REPORT | Continuity of Care Document ---
Author Name Unknown Address [address] [facility] [place] [address] [facility] Address [address] [facility] [address] [place] [address] Care Team Providers Care [employer] Superintendent Name Role Phone Claire Rice Attending Clinician Unavaila ble Immunizations Ordered Immunization Name Filled Immunization Name Date Status Comments Source Moderna COVID-19 Vaccine Moderna COVID-19 Vaccine 2021-07-05 00:00:00 Completed Moderna COVID-19 Vaccine Moderna COVID-19 Vaccine 2021-06-11 00:00:00 Completed Encounters Start Date/Time End Date/Time Encounter Type Admission Type Attending [facility] Facility Care Department Encounter ID Source 2023-09-03 13:19:29 2023-09-03 13:19:29 Outpatient SFA SFA [id number] Uday Silva 2023-09-01 09:23:03 2023-09-01 09:23:03 Outpatient SFA SFA [id number] Uday Silva 2023-08-25 07:43:13 2023-08-25 07:43:13 Outpatient SFA SFA [id number] Uday Silva 2023-05-28 07:14:04 2023-05-28 07:14:04 Outpatient SFA SFA [id number] Uday Silva 2021-07-05 00:00:00 2021-07-05 00:00:00 Outpatient GCCOVIDV GCCOVIDV [id number] GCCOVID V 2021-06-11 00:00:00 2021-06-11 00:00:00 Outpatient GCCOVIDV GCCOVIDV [id number] GCCOVID V Results Test Description Test Time Test Comments Results Result Co mments Source LIPID [id number] 06:16:28* Test Item Value Reference Range Interpretation Comme nts CHOLESTEROL (test code = 2210) 179 MG/DL <200 TRIGLYCERIDES (test code = 2232) 129 MG/DL <150 HDL CHOLESTEROL (test code = 2220) 59 MG/DL >39 CALC LDL CHOL (test code = 2237) 97 MG/DL <100 NOTE: CALCULATED LDL IS BASED ON FLORENCE-OBRIEN METHOD WHICHINCLUDES ADJUSTABLE TRIGLYCERIDE:VLDL CHOLESTEROL RATIO.THIS FACTOR VARIES BY MEASURED TRIGLYCERIDE AND NON-HDLCHOLESTEROL CONCENTRATIONS WITH INCREASED CALCULATED LDL SEENIN HIGHER TRIGLYCERIDE OR LOWER NON-HDL SPECIMENS. FOR MOREINFORMATION, SEE CLIENT ANNOUNCEMENT AT [email or web address] RISK RATIO LDL/HDL (test code = 2238) 1.64 RATIO <3.22 [facility] has i mportant pathology staff changes effective 12/18/2022. New pathology staff will provide uninterrupted, excellent patient care and clinical consultation. See URL: [email or web address]. UNLESS OTHERWISE INDICATED, ALL TESTING PERFORMED AT [facility] [address] [place] [address] CUFF MATCHER: JOSE LUIS SANDERS M.D. CLIA NUMBER [id number] [facility] [place]. [id number] URINALYSIS W/REFLEX [id number] 05:41:32* Test Item Value Reference Range Interpretation Comme nts COLOR (test code = 1501) YELLOW YELLOW-STRAW APPEARANCE (test code = 1502) CLEAR CLEAR SPECIFIC GRAVITY (test code = 1503) 1.024 1.005-1.035 LEUKOCYTE ESTERASE (test code = 1504) TRACE NEGATIVE A NITRITE (test code = 1505) NEGATIVE NEGATIVE pH (test code = 1506) 5.0 5.0-9.0 PROTEIN (test code = 1507) NEGATIVE NEGATIVE GLUCOSE (test code = 1508) NEGATIVE NEGATIVE KETONES (test code = 1509) NEGATIVE NEGATIVE UROBILINOGEN (test code = 1510) 0.2 MG/DL See_Comment [Automated youbeQ - [employer]] The system which generated this result transmitted reference range: <=2.0. The reference range was not used to interpret this result as normal/abnormal. BILIRUBIN (test code = 1511) NEGATIVE NEGATIVE OCCULT BLOOD (test code = 1512) NEGATIVE NEGATIVE WHITE BLOOD CELLS (test code = 1513) 11-15 /HPF 0-5 A RED BLOOD CELLS (test code = 1514) 0-2 /HPF 0-2 PLEASE NOTE: NEW REFERENCE RANGE EFFECTIVE 23. EPITHELIAL CELLS (test code = 20886) 11-15 /HPF 0-10 A BACTERIA (test code = 1515) 1+ NONE SEEN A CASTS, HYALINE (test code = 1517) NONE SEEN NONE-TRACE CBC W/AUTO DIFF WITH [id number] 05:13:37* Test Item Value Reference Range Interpretation Comme nts WBC (test code = 1001) 3.9 K/UL 3.5-11.0 RBC (test code = 1002) 4.48 M/UL 3.80-5.40 HEMOGLOBIN (test code = 1003) 12.9 G/DL 11.5-15.5 HEMATOCRIT (test code = 1004) 39.5 % 34.0-45.0 MCV (test code = 1005) 88.2 fL 80.0-99.0 MCH (test code = 1006) 28.8 PG 25.0-33.0 MCHC (test code = 1007) 32.7 G/DL 31.0-36.0 RDW (test code = 1038) 13.3 % 11.5-15.0 NEUTROPHILS (test code = 1008) 66.6 % LYMPHOCYTES (test code = 1010) 21.0 % MONOCYTES (test code = 1011) 9.3 % EOSINOPHILS (test code = 1012) 2.3 % BASOPHILS (test code = 1013) 0.5 % IMMATURE GRANULOCYTES (test code = 1036) 0.3 % NUCLEATED RBCS (test code = 1065) 0.0 /100 WBC'S See_Comment [Automated messa ge] The system which generated this result transmitted reference range: 0.0. The reference range was not used to interpret this result as normal/abnormal. PLATELET COUNT (test code = 1015) 121 K/UL 130-400 L ABSOLUTE NEUTROPHILS (test code = 1066) 2.57 K/UL 1.50-7.50 ABSOLUTE LYMPHOCYTES (test code = 1067) 0.81 K/UL 1.00-4.00 L ABSOLUTE MONOCYTES (test code = 1068) 0.36 K/UL 0.20-1.00 ABSOLUTE EOSINOPHILS (test code = 1040) 0.09 K/UL 0.00-0.50 ABSOLUTE BASOPHILS (test code = 1069) 0.02 K/UL 0.00-0.20 ABS IMMATURE GRANULOCYTES (test code = 1020) 0.01 K/UL 0.00-0.10 ABS NUCLEATED RBCS (test code = 41736) 0.00 K/UL 0.00-0.11 SARS-CoV-2 (COVID-19), RT-PCR/[id number] 10:18:51* Test Item Value Reference Range Interpretation Comments SARS-CoV-2 INTERPRETATION (test code = 63117) NEGATIVE SEE NOTE SARS-CoV-2 R NA NOT DETECTEDNegative results do not preclude SARS-CoV-2 infection and should notbe used as the sole basis for patient management decisions. Negativeresults must be combined with clinical observations, patient history,and epidemiological information. Optimum specimen types and timingfor peak viral levels during infections caused by SARS-CoV-2 have notbeen determined. Collection of multiple specimens or types ofspecimens may be necessary to detect virus. Improper specimencollection and handling, sequence variability under primers/probes,or organism present below the limit of detection may lead to falsenegative results. Positive and negative predictive values oftesting are highly dependent on prevalence. False negative testresults are more likely when prevalence is high. SOURCE (test code = 25697) NOT SPECIFIED Note: Methodolog y is Franky Earl Real-Time RT-PCR. The expected result or reference range is NEGATIVE (Not Detected). For more information regarding COVID-19 testing to include clinicalinformation, methodology detail, intended use, FDA authorization andrecommended fact sheets for patients or healthcare providers, see NewTest Announcement: SARS-CoV-2 (COVID-19) by NAAT at URL below (note,fact sheets are provided by method given in report:[email or web address] Alternatively, see downloadable PDF fact sheet at:https://www.[employer][email or web address] UNLESS OTHERWISE INDICATED, ALL TESTING PERFORMED [facility] [address] [place] [id number] CUFF MATCHER: RACIEL SALINAS M.D. CLIA NUMBER [id number] [facility] [place] [id number] SURGICAL PATHOLOGY, LEVEL [id number] 11:54:[address] [address] Laboratory Printed: 02/26/[address] [place] [address] DAEMPathology Page: 1 Patient: EUSEBIA ZAVALETA Birthdate: 1950 Age/Sex: 66/F Spec#: [id number]: Claire Rice [place] Specimen Date:02/24/17 Received Date: 02/25/17 Specimen: SKIN CLINICAL DIAGNOSIS L98.9 PATHOLOGIC DIAGNOSIS Skin, abdomen, excision: - Irritated, inflamed seborrheic keratosis. - No dysplasia or malignancy identified. Pathologist:Jayson Cowan MD Entered by:02/26/17 - [address] [facility].YGP PROCEDURES: [id number] GROSS DESCRIPTION A. SKIN ABDOMEN The specimen is received in 10% formalin, and is labeled with the patient's name and tissuerequest. Accompanying paperwork says "abdomen". The specimen consists of a borrero-pinkpolypoid slightly pedunculated tissue fragment measuring 1.2 x 1.0 x 0.5 cm in greatestdimensions. The deepmargin is inked black. Both ends are shaved, and the remainingfragment is cross sectioned and entirely submitted in two cassettes, A1-2. Section code:A1 - ends Patient: EUSEBIA ZAVALETA Re02/24/17Loc: JESS MR#: [id number] CONTINUED ON NEXT PAGE Dis: Sta: DEP CLI ------- ----- [address] [address] Laboratory Printed: 02/26/[address] [place] [address] DAEMPathology Page: 2 Patient: EUSEBIA ZAVALETA [id number] (C katarzyna) GROSS DESCRIPTION (Continued) A2 - cross sections Dictated by: Vidhi Varela Entered by: 02/25/17 - 113[facility].Y MICROSCOPIC DESCRIPTION A microscopic examination was performed to arrive at the diagnostic conclusion reported. Signed (Electronically Signed) Jayson Cowan MD 02/17 Patient: ZAVALETA,EUSEBIA MENDEZ Re02/24/17Loc: JESS MR#: [id number] END OF REPORT Dis: Sta: DEP CLI
[2023-11-04 05:55] LABS: Hematocrit 32.1 % (36.0-45.0); Lymphocytes % 24.1 % (15.3-44.8); MCV 87.9 fL (80-100); MPV 10.4 fL (7.6-11.3); Platelets 115 thou/uL (152-406); RBC Red Blood Cell Count 3.66 M/uL (3.86-4.86)
[2023-11-04 06:04] LABS: Albumin 3.3 g/dL (3.4-5.0); Bilirubin Total 0.8 mg/dL (0.2-1.0); Potassium 3.6 mEq/L (3.5-5.1); Protein, Total 6.4 g/dL (6.4-8.2); Troponin High Sensitivity 10.4 pg/mL (<58.9)
[2023-11-04 06:08] LABS: SARS-CoV-2 Antigen Rapid Res Negative (Negative)
--- NOTE | 2023-11-04 06:40 | ER ---
Nurse's Notes [facility] Name: Sonal Scruggs Age: 73 yrs Sex: Female : 1950 Arrival Date: 11/04/2023 Time: 05:22 Bed 20 Private MD: Diagnosis: COPD/ Chronic obstructive pulmonary disease with (acute) exacerbation;Heart failure, unspecified Presentation: 11/04 05:27 Chief complaint: EMS states: tone out for SOB starting at 0400 today; pt also reports km8 productive cough; denies fever/chills; hx of COPD. Coronavirus screen: Client denies travel out of the [place] in the last 14 days. Ebola Screen: No symptoms or risks identified at this time. Initial Sepsis Screen: Does the patient meet any 2 criteria? RR > 20 per min. No. Patient's initial sepsis screen is negative. Does the patient have a suspected source of infection? No. Patient's initial sepsis screen is negative. Risk Assessment: Do you want to hurt yourself or someone else? Patient reports no desire to harm self or others. Onset of symptoms was November 04, 2023 at 04:00. 05:27 Method Of Arrival: EMS: [facility] km8 05:27 Acuity: CONY 3 km8 Triage Assessment: 05:30 General: Appears in no apparent distress. comfortable, Behavior is calm, cooperative, km8 appropriate for age. Pain: Denies pain. EENT: No signs and/or symptoms were reported regarding the EENT system. Neuro: Level of Consciousness is awake, alert, obeys commands, Oriented to person, place, time, situation. Cardiovascular: Reports shortness of breath, Denies chest pain, Capillary refill < 3 seconds Patient's skin is warm and dry. Respiratory: Reports cough that is productive, Airway is patent Respiratory effort is even, labored, Respiratory pattern is regular, symmetrical. GI: No signs and/or symptoms were reported involving the gastrointestinal system. : No signs and/or symptoms were reported regarding the genitourinary system. Derm: No signs and/or symptoms reported regarding the dermatologic system. Skin is intact, is healthy with good turgor, Skin is dry, Skin is pink, warm \T\ dry. normal, Skin temperature is warm. Musculoskeletal: No signs and/or symptoms reported regarding the musculoskeletal system. Circulation, motion, and sensation intact. Range of motion: intact in all extremities. Historical: - Allergies: 05:30 Azithromycin; 05:30 Ciprofloxacin HCl; 05:30 Codeine; 05:30 Morphine; 05:30 PENICILLINS; 05:30 Sulfa (Sulfonamide Antibiotics); 05:30 TETRACYCLINES; - PMHx: 05:30 Asthma; Chronic obstructive lung disease; COPD; Hyperlipidemia; Hypertension; Myocardial infarction; - PSHx: 05:30 heart stent; - Immunization history:: Client reports receiving the 2nd dose of the Covid vaccine, Flu vaccine is up to date. - Social history:: Smoking status: Patient/guardian denies using tobacco, the patient reports quitting approximately 10 years ago, Patient uses alcohol, occasionally. Patient/guardian denies using street drugs. Screenin:26 [facility] ED Fall Risk Assessment (Adult) History of falling in the last 3 months, 8 including since admission No falls in past 3 months (0 pts) Confusion or Disorientation No (0 pts) Intoxicated or Sedated No (0 pts) Impaired Gait No (0 pts) Mobility Assist Device Used No (0 pt) Altered Elimination No (0 pt) Score/Fall Risk Level 0 - 2 = Low Risk Oriented to surroundings, Maintained a safe environment, Educated pt \T\ family on fall prevention, incl call for assistance when getting out of bed, Assessed \T\ reinforced patient's understanding of fall precautions. Abuse screen: Denies threats or abuse. Denies injuries from another. Nutritional screening: No deficits noted. Tuberculosis screening: No symptoms or risk factors identified. Assessment: 05:33 General: see triage assessment/notes. 06:11 Reassessment: Patient and/or family updated on plan of care and expected duration. Pain ha1 level reassessed. Patient is alert, oriented x 3, equal unlabored respirations, skin warm/dry/pink. Patient denies pain at this time. Patient states feeling better. Patient states symptoms have improved. Vital Signs: 05:27 BP 161 / 65; Pulse 60; Resp 22; Temp 98.2(O); Pulse Ox 96% on R/A; 8 05:30 BP 158 / 86; Pulse 62; Resp 18 S; Pulse Ox 96% on R/A; ha1 06:00 BP 154 / 64; Pulse 64; Resp 16; Pulse Ox 97% ; km8 Anastacio Coma Score: 05:33 Eye Response: spontaneous(4). Motor Response: obeys commands(6). Verbal Response: km8 oriented(5). Total: 15. ED Course: 05:26 Patient arrived in ED. km8 05:26 Inserted saline lock: 22 gauge in right antecubital area, using aseptic technique. km8 Blood collected. 05:26 Patient maintains SpO2 saturation greater than 95% on room air. Response to oxygen km8 therapy:. 05:26 Patient has correct armband on for positive identification. Bed in low position. Call km8 light in reach. Side rails up X2. Pulse ox on. NIBP on. Door closed. Noise minimized. Warm blanket given. 05:30 Triage completed. km8 05:30 Arm band placed on right wrist. km8 05:32 Benjamin Restrepo MD is Attending Physician. ec2 05:33 No provider procedures requiring assistance completed. km8 05:41 Influenza Screen (a \T\ B) Sent. km8 05:41 SARS RAPID Sent. km8 05:41 BNP Sent. km8 05:41 Troponin HS Sent. km8 05:41 CMP Sent. km8 05:41 CBC with Diff Sent. km8 05:43 Hattie Blanca, RN is Primary Nurse. ha1 06:23 CXR XRAY In Process Unspecified. EDMS 06:52 IV discontinued, intact, bleeding controlled, No redness/swelling at site. Pressure ha1 dressing applied. 06:52 Provided Education on: following up with PCP. ha1 Administered Medications: 05:43 Drug: MethylPrednisoLONE IVP 125 mg IVP once Route: IVP; Site: right antecubital; ha1 06:12 Follow up: Response: No adverse reaction; Marked relief of symptoms ha1 05:43 Drug: DuoNeb Nebulize (3:1) (2.5 mg - 0.5 mg) 3 ml Nebulizer once Route: Nebulizer; ha1 06:12 Follow up: Response: No adverse reaction; Marked relief of symptoms ha1 Medication: 05:33 VIS not applicable for this client. km8 Outcome: 06:39 Discharge ordered by . ec2 06:52 Discharged to home via wheelchair, with family, ha1 06:52 Condition: stable 06:52 Discharge instructions given to patient, Instructed on discharge instructions, follow up and referral plans. medication usage, Demonstrated understanding of instructions, follow-up care, medications, Prescriptions given X 1, 06:53 Patient left the ED. ha1 Signatures: Dispatcher [employer] Hattie Barnes RN RN ha1 Benjamin Restrepo MD MD ec2 Bonita Goel RN RN km8 Corrections: (The following items were deleted from the chart) 05:34 05:27 Pulse 60bpm; Resp 22bpm; Pulse Ox 96% RA; Temp 98.2F Oral; km8 km8
--- NOTE | 2023-11-04 06:40 | EDPHYS ---
Physician Documentation [facility] Name: Sonal Scruggs Age: 73 yrs Sex: Female : 1950 Arrival Date: 11/04/2023 Time: 05:22 Bed 20 Private MD: ED Physician Benjamin Restrepo HPI: 11/04 05:34 This 73 yrs old Female presents to ER via EMS with complaints of sob. ec2 05:34 Patient arrives today for evaluation of shortness of breath. Patient has been having ec2 productive sputum ongoing for several days. History of COPD, EMS reports they gave her albuterol and Atrovent with improvement in her symptoms. Patient reports no fevers or chills, no nausea or vomiting. Denies any chest pain.. Historical: - Allergies: 05:30 Azithromycin; km8 05:30 Ciprofloxacin HCl; km8 05:30 Codeine; km8 05:30 Morphine; km8 05:30 PENICILLINS; km8 05:30 Sulfa (Sulfonamide Antibiotics); km8 05:30 TETRACYCLINES; km8 - PMHx: 05:30 Asthma; Chronic obstructive lung disease; COPD; Hyperlipidemia; Hypertension; km8 Myocardial infarction; - PSHx: 05:30 heart stent; km8 - Immunization history:: Client reports receiving the 2nd dose of the Covid vaccine, Flu vaccine is up to date. - Social history:: Smoking status: Patient/guardian denies using tobacco, the patient reports quitting approximately 10 years ago, Patient uses alcohol, occasionally. Patient/guardian denies using street drugs. ROS: 05:34 Constitutional: as per hpi ec2 Exam: 05:34 Constitutional: GEN: NAD Head: atraumatic Eyes: EOMI Ears: External ears are ec2 normal. CV: regular rate LUNGS: No focal lung deficits, no rales, no rhonchi ABD: non-distended SKIN: no evidence of rashes MSK: no evidence of trauma NEURO: moves all extremities equally Vital Signs: 05:27 BP 161 / 65; Pulse 60; Resp 22; Temp 98.2(O); Pulse Ox 96% on R/A; km8 05:30 BP 158 / 86; Pulse 62; Resp 18 S; Pulse Ox 96% on R/A; ha1 06:00 BP 154 / 64; Pulse 64; Resp 16; Pulse Ox 97% ; km8 Anastacio Coma Score: 05:33 Eye Response: spontaneous(4). Motor Response: obeys commands(6). Verbal Response: km8 oriented(5). Total: 15. MDM: 05:32 Patient medically screened. ec2 05:34 Data reviewed: vital signs. ED course: Patient arrives today for evaluation of ec2 shortness of breath and productive sputum. Examination remarkable for individual with lung sounds as above. Will obtain lab work, viral swabs, chest x-ray. Currently considering COPD exacerbation, viral infection, pneumonia. Will treat with DuoNeb and steroids.. 05:35 ED course: EKG independently reviewed and interpreted by me, shows normal sinus rhythm, ec2 rate of 61, no acute ST segment elevations, nonconcerning intervals.. 06:11 ED course: CBC is reassuring without leukocytosis, reassuring metabolic profile, BNP ec2 elevated at 2500, negative flu and COVID testing. . 06:38 ED course: On reassessment patient with improvement in respiratory status. Will treat ec2 with steroids for the next several days, will have her take her Lasix to help with some diuresis. Suspect COPD exacerbation versus volume overload. Return precautions given.. 11/04 05:33 Order name: CBC with Diff; Complete Time: 06:11 ec2 11/04 05:33 Order name: CMP; Complete Time: 06:11 ec2 11/04 05:33 Order name: Troponin HS; Complete Time: 06:11 ec2 11/04 05:33 Order name: BNP; Complete Time: 06:11 ec2 11/04 05:33 Order name: SARS RAPID; Complete Time: 06:11 ec2 11/04 05:33 Order name: Influenza Screen (a \T\ B); Complete Time: 06:11 ec2 11/04 06:11 Order name: CXR XRAY ec2 11/04 05:33 Order name: EKG; Complete Time: 05:34 ec2 11/04 05:33 Order name: EKG - Nurse/Tech; Complete Time: 05:34 ec2 Administered Medications: 05:43 Drug: MethylPrednisoLONE IVP 125 mg IVP once Route: IVP; Site: right antecubital; ha1 06:12 Follow up: Response: No adverse reaction; Marked relief of symptoms ha1 05:43 Drug: DuoNeb Nebulize (3:1) (2.5 mg - 0.5 mg) 3 ml Nebulizer once Route: Nebulizer; ha1 06:12 Follow up: Response: No adverse reaction; Marked relief of symptoms ha1 Disposition Summary: 11/04/23 06:39 Discharge Ordered Notes: Location: Home ec2 Condition: Stable ec2 Diagnosis - COPD/ Chronic obstructive pulmonary disease with (acute) exacerbation ec2 - Heart failure, unspecified ec2 Followup: ec2 - With: Private Physician - When: - Reason: Recheck today's complaints Discharge Instructions: - Discharge Summary Sheet ec2 Forms: - Medication Reconciliation Form ec2 - Thank You Letter ec2 - Antibiotic Education ec2 - Prescription Opioid Use ec2 - Patient Portal Instructions ec2 - Leadership Thank You Letter ec2 Prescriptions: - Prednisone 20 mg Oral Tablet - take 2 tablets ORAL route once daily for 5 days; 10 tablet; Refills: 0, Product ec2 Selection Permitted Signatures: Dispatcher [employer] Hattie Barnes RN RN 1 Benjamin Restrepo MD MD 2 Bonita Goel RN RN km8
[2023-11-04 07:35] VITALS: TEMP 98.2
[2023-11-04 07:47] VITALS: BP 154/64; O2SAT 97
--- NOTE | 2023-11-05 14:14 | RAD REPORT ---
EXAM DESCRIPTION: XR Chest, 1 View CLINICAL HISTORY: The patient is 73 years old and is Female; COPD TECHNIQUE: Single view of the chest. COMPARISON: No relevant prior studies available. FINDINGS: Lungs: No pulmonary vascular congestion or consolidation. Pleural space: Unremarkable. No pneumothorax. Heart: The cardiac silhouette is enlarged versus artifact of AP technique. Mediastinum: Unremarkable. Bones/joints: Scoliosis. Upper abdomen: No free air in the visualized upper abdomen. IMPRESSION: No acute cardiopulmonary process identified. Electronically signed by: Renate James MD 11/04/2023 06:30 AM SUPERVISING BAILIFF Due to temporary technical issues with the PACS/Fluency reporting system, reports are being signed by the in house radiologists without review as a courtesy to insure prompt reporting. The interpreting radiologist is fully responsible for the content of the report.
== END ==
LOC: ER 05:22
DX: J44.1 Chronic obstructive pulmonary disease with (acute) exacerbation (principal); I50.9 Heart failure, unspecified; Z11.52 Encounter for screening for COVID-19; I10 Essential (primary) hypertension; Z95.818 Presence of other cardiac implants and grafts; Z88.0 Allergy status to penicillin; Z88.1 Allergy status to other antibiotic agents; Z88.2 Allergy status to sulfonamides; Z88.5 Allergy status to narcotic agent
CPT/HCPCS: 93005; 85025; 36415; 84484; 80053; 83880; 87804 ×2; 71045; 94640; 96374; 99285; 87811; J7613; J7644; J2930

== ENCOUNTER 2024-04-27 02:39 | Emergency (ER) | payer OTHER ==
--- OUTSIDE RECORDS SUMMARY | 2024-04-27 02:42 | XMS REPORT | Continuity of Care Document ---
Author Name Unknown Address [address] [facility] [place]. 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 Name Role Phone Claire Rice Attending Clinician Unavaila ble Immunizations Ordered Immunization Name Filled Immunization Name Date Status Comments Source Moderna COVID-19 Vaccine Moderna COVID-19 Vaccine 2021-07-05 00:00:00 Completed Moderna COVID-19 Vaccine Moderna COVID-19 Vaccine 2021-06-11 00:00:00 Completed Encounters Start Date/Time End Date/Time Encounter Type Admission Type Attending Clinicians Care Facility Care Department Encounter ID Source 2024-04-23 09:20:37 2024-04-23 09:20:37 Outpatient [facility] SFA [id number] Uday Silva 2023-09-03 13:19:29 2023-09-03 13:19:29 Outpatient SFA SFA [id number] Uday Silva 2023-09-01 09:23:03 2023-09-01 09:23:03 Outpatient SFA SFA [id number] Uday Silva 2023-08-25 07:43:13 2023-08-25 07:43:13 Outpatient SFA SFA [id number] Uday Silva 2023-05-28 07:14:04 2023-05-28 07:14:04 Outpatient SFA SFA [id number] Uday Silva 2021-07-05 00:00:00 2021-07-05 00:00:00 Outpatient [facility] [id number] [facility] 2021-06-11 00:00:00 2021-06-11 00:00:00 Outpatient GCCOVIDV GCCOVIDV [id number] GCC[facility] V Results Test Description Test Time Test Comments Results Result Co mments Source COMPREHENSIVE METABOLIC [id number] 06:16:28* Test Item Value Reference Range Interpretation Comme nts GLUCOSE (test code = 2217) 103 MG/DL 70-99 H BUN (test code = 220) 25 MG/DL 8-23 H CREATININE (test code = 2214) 0.88 MG/DL 0.60-1.30 eGFR (2020 CKD-EPI) (test code = 28436) 69 ML/MIN/1.73 >60 CALC BUN/CREAT (test code = 2235) 28 RATIO 6-28 SODIUM (test code = 223) 143 MEQ/L 133-146 POTASSIUM (test code = 2228) 4.5 MEQ/L 3.5-5.4 CHLORIDE (test code = 2215) 105 MEQ/L 95-107 CARBON DIOXIDE (test code = 2206) 26 MEQ/L 19-31 CALCIUM (test code = 2209) 9.8 MG/DL 8.5-10.5 PROTEIN, TOTAL (test code = 222) 6.9 G/DL 6.1-8.3 ALBUMIN (test code = 2201) 4.6 G/DL 3.5-5.2 CALC GLOBULIN (test code = 2240) 2.3 G/DL 1.9-3.7 CALC A/G RATIO (test code = 2234) 2.0 RATIO 1.0-2.6 BILIRUBIN, TOTAL (test code = 2207) 0.7 MG/DL See_Comment [Automated me ssage] The system which generated this result transmitted reference range: <=1.2. The reference range was not used to interpret this result as normal/abnormal. ALKALINE PHOSPHATASE (test code = 2204) 83 U/L 40-142 AST (test code = 2218) 15 U/L 9-40 ALT (test code = 2219) 12 U/L 5-40 URINALYSIS W/REFLEX [id number] 05:41:32* Test Item Value Reference Range Interpretation [...] code = 1510) 0.2 MG/DL See_Comment [Automated [employer] ge] The system which generated this result [...] EFFECTIVE 23. EPITHELIAL CELLS (test code = 92450) 11-15 /HPF 0-10 A BACTERIA (test code = 1515) 1+ NONE SEEN A CASTS, HYALINE (test code = 1517) NONE SEEN NONE-TRACE CBC W/AUTO DIFF WITH [id number] 05:13:37* Test Item Value Reference Range Interpretation [...] = 1065) 0.0 /100 WBC'S See_Comment [Automated [employer] ge] The system which generated this result [...] 0.00-0.10 ABS NUCLEATED RBCS (test code = 57458) 0.00 K/UL 0.00-0.11 SARS-CoV-2 (COVID-19), RT-PCR/[id number] 10:18:51* Test Item Value Reference Range Interpretation Comments SARS-CoV-2 INTERPRETATION (test code = 46065) NEGATIVE SEE NOTE SARS-CoV-2 R NA NOT [...] prevalence is high. SOURCE (test code = 27059) NOT SPECIFIED Note: Methodolog y is Franky Earl Real-Time RT-PCR. The expected result or reference range is NEGATIVE (Not Detected). For more information regarding COVID-19 testing to include clinicalinformation, methodology detail, intended use, FDA authorization andrecommended fact sheets for patients or healthcare providers, see [employer] Announcement: SARS-CoV-2 (COVID-19) by NAAT at URL below (note,fact sheets are provided by method given in report:[email or web address] Alternatively, see downloadable PDF fact sheet at:[email or web address] UNLESS OTHERWISE INDICATED, ALL TESTING PERFORMED [facility] [employer] [address] [place] [address] HEAD GIRLS GOLF COACH: RACIEL SALINAS M.D. CLIA NUMBER [id number] [facility] [place]. [id number] SURGICAL PATHOLOGY, LEVEL [id number] 11:54:00 [place] [address] Laboratory Printed: 02/26/[address] [place] [address] DAEMPathology Page: 1 Patient: EUSEBIA ZAVALETA Birthdate: 1950 Age/Sex: 66/F Spec#: [id number]: Claire Rice Specimen Date: 02/24/17 Received Date: 02/25/17 Specimen: SKIN CLINICAL DIAGNOSIS L98.9 PATHOLOGIC DIAGNOSIS Skin, abdomen, excision: - Irritated, inflamed seborrheic keratosis. - No dysplasia or malignancy identified. Pathologist:Jayson Cowan MD Entered by:02/26/17 - 1144 LAB.YGP PROCEDURES: 63211 GROSS DESCRIPTION A. SKIN ABDOMEN The specimen [...] ends Patient: EUSEBIA ZAVALETA Re02/24/17Loc: JESS MR#: [id number] CONTINUED ON NEXT PAGE Dis: Sta: DEP CLI ------ ------ [address] [address] Laboratory Printed: 02/26/[address] [place] [address] DAEMPathology Page: 2 Patient: EUSEBIA ZAVALETA [id number] (C ontinued) GROSS DESCRIPTION (Continued) A2 - cross sections Dictated by: Vidhi Varela Entered by: 02/25/17 - 1133 LAB.FraciscoGP MICROSCOPIC DESCRIPTION A microscopic examination was performed to arrive at the diagnostic conclusion reported. Signed (Electronically Signed) Jayson Cowan MD 02/26/17 Patient: EUSEBIA ZAVALETA Re02/24/17Loc: JESS MR#: [id number] END OF REPORT Dis: Sta: DEP CLI
[2024-04-27 04:26] LABS: PT Prothrombin Time 11.6 SECONDS (9.4-12.5); Protime INR 1.06
[2024-04-27 04:38] LABS: Albumin 3.2 g/dL (3.4-5.0); Albumin/Globulin Ratio 1.3 (1.1-1.8); Bilirubin Direct 0.3 mg/dL (0-0.2); Bilirubin Indirect, Calculated 0.6 mg/dL (0.2-0.8); Bilirubin Total 0.9 mg/dL (0.2-1.0); Globulin 2.4 g/dL (2.3-3.5); Magnesium 1.8 mg/dL (1.6-2.4); Protein, Total 5.6 g/dL (6.4-8.2)
[2024-04-27 05:18] LABS: Lymphocytes % 28.1 % (15.3-44.8); MCH 28.6 pg (27.0-35.0); MCHC 33.2 g/dL (32.0-36.0); MPV 10.6 fL (7.6-11.3); Neutrophils % 58.4 % (41.7-73.7); Platelets 129 thou/uL (152-406); RBC Red Blood Cell Count 3.49 M/uL (3.86-4.86); Red Cell Distribution Width 14.3 % (12.1-15.2)
[2024-04-27 05:19] LABS: Absolute Eosinophils 0.1 K/uL (0-0.5); Absolute Lymphocytes (CBC) 0.9 K/uL (0.7-4.9); Absolute Monocytes 0.4 K/uL (0.1-1.3); Absolute Neutrophil 1.8 K/uL (1.8-8.0); Basophils % 0.2 % (0-1.3); Monocytes % 11.3 % (3.3-12.3); Nucleated Red Blood Cells % 0.2 % (0-0)
--- NOTE | 2024-04-27 05:23 | EDPHYS ---
Physician Documentation [facility] Name: Sonal Scruggs Age: 74 yrs Sex: Female : 1950 Arrival Date: 04/27/2024 Time: 02:39 Bed 14 Private MD: ED Physician Arcenio Isaacs HPI: 04/27 03:26 This 74 yrs old Female presents to ER via EMS with complaints of shortness of breath sp3 and leg swelling bilateral. 03:26 74-year-old female with a history of COPD, CHF, NM, asthma now presents to the ED with sp3 chief complaint peripheral edema and shortness of breath. Patient has been taking her Lasix as prescribed by her physician. She denies any current chest pain, back pain, jaw pain, left arm pain, syncope, near syncope, fever, cough, or any other signs or symptoms on ROS at this time.. Historical: - Allergies: 02:58 Azithromycin; rg5 02:58 Ciprofloxacin HCl; rg5 02:58 Morphine; rg5 02:58 PENICILLINS; rg5 02:58 TETRACYCLINES; rg5 02:58 Sulfa (Sulfonamide Antibiotics); rg5 02:58 Codeine; rg5 - PMHx: 02:58 Asthma; Chronic obstructive lung disease; COPD; Hypertension; Myocardial infarction; rg5 Hyperlipidemia; - PSHx: 02:58 heart stent; rg5 - Immunization history:: Adult Immunizations up to date. - Infectious Disease History:: Denies. - Social history:: Smoking status: Patient/guardian denies using tobacco, the patient reports quitting approximately 15 years ago. ROS: 03:27 Constitutional: Negative for fever, chills, and weight loss, Eyes: Negative for injury, sp3 pain, redness, and discharge, ENT: Negative for injury, pain, and discharge, Neck: Negative for injury, pain, and swelling, Cardiovascular: Negative for chest pain, palpitations, and edema, Abdomen/GI: Negative for abdominal pain, nausea, vomiting, diarrhea, and constipation, Back: Negative for injury and pain, MS/Extremity: Negative for injury and deformity, Skin: Negative for injury, rash, and discoloration, Neuro: Negative for headache, weakness, numbness, tingling, and seizure, Psych: Negative for depression, anxiety, suicide ideation, homicidal ideation, and hallucinations, Allergy/Immunology: Negative for hives, rash, and allergies, Endocrine: Negative for neck swelling, polydipsia, polyuria, polyphagia, and marked weight changes, Hematologic/Lymphatic: Negative for swollen nodes, abnormal bleeding, and unusual bruising, 03:27 All other systems are negative, Exam: 03:27 Constitutional: This is a well developed, well nourished patient who is awake, alert, sp3 and in no acute distress. Head/Face: Normocephalic, atraumatic. Eyes: Pupils equal round and reactive to light, extra-ocular motions intact. Lids and lashes normal. Conjunctiva and sclera are non-icteric and not injected. Cornea within normal limits. Periorbital areas with no swelling, redness, or edema. ENT: Nares patent. No nasal discharge, no septal abnormalities noted. External auditory canals are clear. Oropharynx with no redness, swelling, or masses, exudates, or evidence of obstruction, uvula midline. Mucous membranes moist. Neck: Trachea midline, no thyromegaly or masses palpated, and no cervical lymphadenopathy. Supple, full range of motion without nuchal rigidity, or vertebral point tenderness. No Meningismus. Chest/axilla: Normal chest wall appearance and motion. Nontender with no deformity. No lesions are appreciated. Cardiovascular: Regular rate and rhythm with a normal S1 and S2. No gallops, murmurs, or rubs. Normal PMI, no JVD. No pulse deficits. Abdomen/GI: Soft, non-tender, with normal bowel sounds. No distension or tympany. No guarding or rebound. No evidence of tenderness throughout. Back: No spinal tenderness. No costovertebral tenderness. Full range of motion. Skin: Warm, dry with normal turgor. Normal color with no rashes, no lesions, and no evidence of cellulitis. Neuro: Awake and alert, GCS 15, oriented to person, place, time, and situation. Cranial nerves II-XII grossly intact. Motor strength 5/5 in all extremities. Sensory grossly intact. Cerebellar exam normal. Normal gait. Psych: Awake, alert, with orientation to person, place and time. Behavior, mood, and affect are within normal limits. 03:27 Respiratory: Mild Rales bilaterally at the bases., 03:28 Musculoskeletal/extremity: 1+ edema lower extremities pitting in nature.. sp3 03:42 ECG was reviewed by the Attending Physician. EKG demonstrates normal sinus rhythm at 66 sp3 bpm with normal intervals, normal QRS, normal axis, nonspecific diffuse ST's ST changes without evidence of acute ischemia. Vital Signs: 02:52 BP 139 / 71; Pulse 70; Resp 20; Temp 98; Pulse Ox 96% on 3 lpm NC; Weight 92.99 kg; rg5 Height 5 ft. 6 in. ; Pain 4/10; 03:42 BP 140 / 56; Pulse 73; Resp 19; Temp 98; Pulse Ox 98% on 3 lpm NC; rg5 05:25 BP 136 / 51; Pulse 66; Resp 17; Temp 98; Pulse Ox 98% on R/A; rg5 02:52 Body Mass Index 33.09 (92.99 kg, 167.64 cm) rg5 02:52 Pain Scale: Adult rg5 [place] Coma Score: 04:30 Eye Response: spontaneous(4). Motor Response: obeys commands(6). Verbal Response: rg5 oriented(5). Total: 15. MDM: 02:48 Patient medically screened. sp3 03:28 Data reviewed: vital signs, nurses notes, EMS record, old medical records, lab test sp3 result(s), EKG, radiologic studies. ED course: 74-year-old female with shortness of breath. Differential diagnosis includes CHF exacerbation, COPD exacerbation, bronchitis, pneumonia, electrolyte abnormality, ACS, among others. Workup will include chest x-ray, EKG, laboratory values with further medications as indicated. Disposition pending workup and patient course.. 05:21 ED course: Patient stable resting comfortably. BNP only 843. Will give Lasix and safely sp3 discharge patient home to PCP follow-up.. 04/27 02:50 Order name: Basic Metabolic Panel; Complete Time: 05: sb4 04/27 02:50 Order name: CBC with Diff; Complete Time: 05:21 sb4 04/27 02:50 Order name: LFT's; Complete Time: 05: sb4 04/27 02:50 Order name: Magnesium; Complete Time: 05:07 sb4 04/27 02:50 Order name: NT PRO-BNP; Complete Time: 05:07 sb4 04/27 02:50 Order name: PT-INR; Complete Time: 05: sb4 04/27 02:50 Order name: Troponin HS; Complete Time: 05:07 sb4 04/27 02:50 Order name: XRAY Chest (1 view) sb4 04/27 02:50 Order name: EKG; Complete Time: 02:51 sb4 04/27 02:50 Order name: Cardiac monitoring; Complete Time: 03:08 sb4 04/27 02:50 Order name: EKG - Nurse/Tech; Complete Time: 03:35 sb4 04/27 02:50 Order name: IV Saline Lock; Complete Time: 03:08 sb4 04/27 02:50 Order name: Labs collected and sent; Complete Time: 03:36 sb4 04/27 02:50 Order name: O2 Per Protocol; Complete Time: 03:08 sb4 04/27 02:50 Order name: O2 Sat Monitoring; Complete Time: 03:08 sb4 Administered Medications: 05:43 Drug: Furosemide IVP 20 mg IVP once; give over 2 minutes Route: IVP; Site: left hand; rg5 05:46 Follow up: Response: No adverse reaction rg5 05:43 Drug: Potassium Chloride PO 20 mEq PO once Route: PO; rg5 05:46 Follow up: Response: No adverse reaction rg5 Disposition Summary: 04/27/24 05:23 Discharge Ordered Notes: Location: Home sp3 Condition: Stable sp3 Diagnosis - Heart failure, unspecified sp3 Followup: sp3 - With: Private Physician - When: Upon discharge from the Emergency Department - Reason: Continuance of care Discharge Instructions: - Discharge Summary Sheet sp3 - Heart Failure, Diagnosis sp3 Forms: - Medication Reconciliation Form sp3 - Antibiotic Education sp3 - Prescription Opioid Use sp3 - Patient Portal Instructions sp3 - Leadership Thank You Letter sp3 Prescriptions: - Lasix 20 mg Oral tablet - take 1 tablet ORAL route every 12 hours; 20 tablet; Refills: 0, Product sp3 Selection Permitted Signatures: Dispatcher [employer] EDArcenio Bill MD MD sp3 Melina Peña PA-C PARadha sb4 Huang Michael RN RN rg5 Corrections: (The following items were deleted from the chart) 02:51 02:51 BASIC METABOLIC PANEL+C.LAB.BRZ ordered. EDMS EDMS 02:51 02:51 CBC+H.LAB.BRZ ordered. EDMS EDMS 02:51 02:51 HEPATIC FUNCTION+C.LAB.BRZ ordered. EDMS EDMS 02:51 02:51 MAGNESIUM+C.LAB.BRZ ordered. EDMS EDMS 02:51 02:51 PROBNP+C.LAB.BRZ ordered. EDMS EDMS 02:51 02:51 PROTIME (+INR)+COAG.LAB.BRZ ordered. EDMS EDMS 02:51 02:51 Troponin High Sensitivity+C.LAB.BRZ ordered. EDMS EDMS
--- NOTE | 2024-04-27 05:23 | ER ---
Nurse's Notes [facility] Name: Sonal Scruggs Age: 74 yrs Sex: Female : 1950 Arrival Date: 04/27/2024 Time: 02:39 Bed 14 Private MD: Diagnosis: Heart failure, unspecified Presentation: 04/27 02:52 Chief complaint: Patient states: feels short of breath and her legs is sweling. rg5 Coronavirus screen: Vaccine status: Patient reports receiving the 2nd dose of the covid vaccine. Ebola Screen: Patient negative for fever greater than or equal to 101.5 degrees Fahrenheit, and additional compatible Ebola Virus Disease symptoms. Initial Sepsis Screen: Does the patient meet any 2 criteria? No. Patient's initial sepsis screen is negative. Does the patient have a suspected source of infection? No. Patient's initial sepsis screen is negative. Risk Assessment: Do you want to hurt yourself or someone else? Patient reports no desire to harm self or others. Onset of symptoms was April 27, 2024. 02:52 Method Of Arrival: EMS: Patient [facility] 02:52 Acuity: CONY 3 rg5 Triage Assessment: 02:58 General: Appears comfortable, Behavior is calm, cooperative, appropriate for age. Pain: rg5 Complains of pain in medial aspect of left knee Pain radiates to pelvis Pain currently is 4 out of 10 on a pain scale. Quality of pain is described as aching. 03:42 Neuro: Level of Consciousness is awake, alert, obeys commands, Oriented to time. rg5 Cardiovascular: Capillary refill < 3 seconds. Respiratory: Reports shortness of breath at rest Airway is patent Trachea midline Respiratory effort is pursed lip, Respiratory pattern is regular, symmetrical, Onset: The symptoms/episode began/occurred yesterday, the patient has mild shortness of breath. GI: Abdomen is round non-distended. : No signs and/or symptoms were reported regarding the genitourinary system. Derm: Skin is intact, Skin is dry, Skin is pink, warm \T\ dry. Musculoskeletal: Range of motion:. Historical: - Allergies: 02:58 Azithromycin; rg5 02:58 Ciprofloxacin HCl; rg5 02:58 Morphine; rg5 02:58 PENICILLINS; rg5 02:58 TETRACYCLINES; rg5 02:58 Sulfa (Sulfonamide Antibiotics); rg5 02:58 Codeine; rg5 - PMHx: 02:58 Asthma; Chronic obstructive lung disease; COPD; Hypertension; Myocardial infarction; rg5 Hyperlipidemia; - PSHx: 02:58 heart stent; rg5 - Immunization history:: Adult Immunizations up to date. - Infectious Disease History:: Denies. - Social history:: Smoking status: Patient/guardian denies using tobacco, the patient reports quitting approximately 15 years ago. Screenin:45 [facility] ED Fall Risk Assessment (Adult) History of falling in the last 3 months, rg5 including since admission No falls in past 3 months (0 pts) Confusion or Disorientation No (0 pts) Intoxicated or Sedated No (0 pts) Impaired Gait Yes (1 pt) Mobility Assist Device Used Yes (1 pt) Altered Elimination No (0 pt) Score/Fall Risk Level 0 - 2 = Low Risk. Abuse screen: Denies threats or abuse. Nutritional screening: No deficits noted. Tuberculosis screening: No symptoms or risk factors identified. Assessment: 04:30 General: Appears comfortable. Pain: Denies pain. Neuro: Level of Consciousness is rg5 awake, alert, obeys commands, Oriented to person, place, time. Cardiovascular: Reports shortness of breath. Respiratory: Airway is patent Trachea midline Respiratory effort is even, unlabored, Respiratory pattern is regular, symmetrical. GI: Abdomen is round. : No signs and/or symptoms were reported regarding the genitourinary system. EENT: No deficits noted. Derm: Skin is intact, Skin is dry, Skin is pink, warm \T\ dry. Musculoskeletal: Range of motion:. Vital Signs: 02:52 BP 139 / 71; Pulse 70; Resp 20; Temp 98; Pulse Ox 96% on 3 lpm NC; Weight 92.99 kg; rg5 Height 5 ft. 6 in. ; Pain 4/10; 03:42 BP 140 / 56; Pulse 73; Resp 19; Temp 98; Pulse Ox 98% on 3 lpm NC; rg5 05:25 BP 136 / 51; Pulse 66; Resp 17; Temp 98; Pulse Ox 98% on R/A; rg5 02:52 Body Mass Index 33.09 (92.99 kg, 167.64 cm) rg5 02:52 Pain Scale: Adult rg5 [place] Coma Score: 04:30 Eye Response: spontaneous(4). Motor Response: obeys commands(6). Verbal Response: rg5 oriented(5). Total: 15. ED Course: 02:47 Patient arrived in ED. sb4 02:48 Arcenio Isaacs MD is Attending Physician. sp3 02:51 Huang Michael, IRAJ is Primary Nurse. rg5 02:58 Triage completed. rg5 02:58 Arm band placed on right wrist. EKG completed in triage. Results shown to MD. rg5 03:26 XRAY Chest (1 view) In Process Unspecified. EDMS 03:45 Patient has correct armband on for positive identification. Bed in low position. Call rg5 light in reach. Side rails up X 1. 03:45 No provider procedures requiring assistance completed. rg5 05:44 Provided Education on: post ER care done. rg5 05:44 IV discontinued, intact, bleeding controlled, No redness/swelling at site. Pressure rg5 dressing applied. Administered Medications: 05:43 Drug: Furosemide IVP 20 mg IVP once; give over 2 minutes Route: IVP; Site: left hand; rg5 05:46 Follow up: Response: No adverse reaction rg5 05:43 Drug: Potassium Chloride PO 20 mEq PO once Route: PO; rg5 05:46 Follow up: Response: No adverse reaction rg5 Medication: 04:30 VIS not applicable for this client. rg5 Outcome: 05:23 Discharge ordered by . sp3 05:44 Discharged to home ambulatory, rg5 05:44 Condition: stable 05:44 Discharge instructions given to patient, Instructed on discharge instructions, follow up and referral plans. medication usage, Prescriptions given X 1, 05:47 Patient left the ED. rg5 Signatures: Dispatcher [employer] EDMA Arcenio Isaacs MD MD sp3 Melina Peña, PA-C PA-C sb4 Huang Michael, RN RN rg5
[2024-04-27] MEDS ORDERED: FUROSEMIDE 20 MG/ 2ML VIAL ONE (05:28)
[2024-04-27] MEDS ORDERED: POTASSIUM CL SA 10 MEQ TAB PO ONE (05:29)
[2024-04-27 06:04] VITALS: BP 136/51; TEMP 98; O2SAT 98
--- NOTE | 2024-04-27 11:59 | RAD REPORT ---
EXAM DESCRIPTION: RAD - Chest Single View - 04/27/2024 3:24 am CLINICAL HISTORY: The patient is 74 years old and is Female; Chest pain;Dyspnea Bed Name: 14 TECHNIQUE: Frontal view of the chest. COMPARISON: No relevant prior studies available. FINDINGS: LUNGS: Medial bibasilar subsegmental atelectasis. No other focal consolidation. PLEURAL SPACE: No appreciable pleural effusion or pneumothorax. MEDIASTINUM: Prominence of the cardiomediastinal silhouette, likely exaggerated secondary to portab le technique, patient positioning, and body habitus. Calcified atherosclerosis of the thoracic aorta. BONES/JOINTS: No acute osseous abnormality. IMPRESSION: No acute chest findings. Electronically signed by: Edy Collazo MD 04/27/2024 05:57 AM CDT RP Due to temporary technical issues with the PACS/Fluency reporting system, reports are being signed by the in house radiologist without review as a courtesy to ensure prompt reporting. The interpreting r adiologist is fully responsible for the content of the report.
--- NOTE | 2024-04-28 12:13 | EKG ---
Test Date: 2024-04-27 Test Time: 03:25:42 Scrap Dealer: EDGARD MEASUREMENT RESULTS: Intervals: Rate: 66 PA: 118 QRSD: 90 QT: 432 QTc: 452 Casey: P: 53 PA: 118 QRS: 50 T: 41 INTERPRETIVE STATEMENTS: Normal sinus rhythm Normal ECG Compared to ECG 11/04/2023 05:30:46 No significant changes Electronically Signed On 04-28-24 12:10:47 CDT by Jose Alfredo Joyce
== END 2024-04-27 05:47 | disposition home or self-care (01) ==
LOC: ER 02:39
DX: I50.9 Heart failure, unspecified (principal); J44.9 Chronic obstructive pulmonary disease, unspecified; I25.2 Old myocardial infarction; I10 Essential (primary) hypertension; R60.9 Edema, unspecified; Z87.891 Personal history of nicotine dependence; Z88.2 Allergy status to sulfonamides; Z88.0 Allergy status to penicillin; Z88.1 Allergy status to other antibiotic agents; J45.909 Unspecified asthma, uncomplicated
CPT/HCPCS: 93005; 85025; 80048; 36415; 83735; 85610; 80076; 84484; 83880; 71045; 96374; 99284; J1940

== ENCOUNTER 2024-09-29 00:19 | Emergency (ER) | payer OTHER ==
--- OUTSIDE RECORDS SUMMARY | 2024-09-29 00:24 | XMS REPORT | Continuity of Care Document ---
Author Name Unknown Address [address] [facility] [address] [place] [address] [facility] Address [address] [facility] [address] [place] [address] Care Team Providers Care Carbon Rod Inserter Name Role Phone Vikki Csatorena Primary Care Physician [phone] Claire Rice Attending Clinician Unavaila ble Allergies, Adverse Reactions, Alerts Allergy Name Allergy Type Status Severity Reaction(s) Onset Date Inactive Date Treating Clinician Comments Source clindamy saqib Propensi ty to adverse reaction to drug Active 2023-10 00:00: 00 Uday Silva ciproflo xacin Propensi ty to adverse reaction to drug Inactiv e 2023-10 0 00:00: 00 Uday Silva Codeine Sulfate - Oral Propensi ty to adverse reaction to drug Active 02-03 00:00: 00 Uday Silva Medications Ordered Medication Name Filled Medication Name Start Date Stop Date Current Medication? Ordering Clinician Indication Dosage Frequency Signature (SIG) Comments Components Source furosemide 20 mg tablet 2023-10 00:00: 00 Yes mg Uday Silva Pepcid 40 mg tablet 2023-10 00:00: 00 Yes 1mg Uday Silva Flonase Allergy Relief 50 mcg/actuati on nasal spray,suspe nsion 2023-10 00:00: 00 Yes 1mcg/ac tuation Uday Silva Bromfed DM 2 mg-30 mg-10 mg/5 mL oral syrup 2023-10 2- 00:00: 00 Yes 10mg/5 mL Uday Silva levofloxaci n 750 mg tablet 2023-10 1- 00:00: 00 Yes 1mg Uday Silva Entresto 49 mg-51 mg tablet 2023-10 00:00: 00 Yes mg Uday Silva fluticasone propionate 50 mcg/actuati on nasal spray,suspe nsion 2023-10 00:00: 00 Yes mcg/act uation Uday Silva paroxetine 10 mg tablet 2023-10 00:00: 00 Yes 1mg Uday Silva metoprolol succinate ER 25 mg tablet,exte nded release 24 hr 2023-10 00:00: 00 Yes 1mg Uday Silva atorvastati n 80 mg tablet 2023-10 00:00: 00 Yes 1mg Uday Silva clindamycin HCl 300 mg capsule 2023-10 00:00: 00 Yes 1mg Uday Silva furosemide 20 mg tablet 2023-10 00:00: 00 Yes mg Uday Silva furosemide 20 mg tablet 2023-10 00:00: 00 Yes mg Uday Silva Entresto 49 mg-51 mg tablet 2023-10 00:00: 00 Yes mg Uday Silva fluticasone propionate 50 mcg/actuati on nasal spray,suspe nsion 2023-10 00:00: 00 Yes mcg/act uation Uday Silva albuterol sulfate 2.5 mg/3 mL (0.083 %) solution for nebulizatio n 04-23 00:00: 00 Yes 1/3 mL (0.083 %) Uday Silva paroxetine 10 mg tablet 04-23 00:00: 00 Yes 1mg Uday Silva Lasix 20 mg tablet 04-23 00:00: 00 Yes 1mg Uday Silva metoprolol succinate ER 25 mg tablet,exte nded release 24 hr - 00:00: 00 Yes 1mg Uday Silva Entresto 49 mg-51 mg tablet 04-23 00:00: 00 Yes 1mg Uday Silva paroxetine 10 mg tablet 01-30 00:00: 00 Yes mg Uday Silva metoprolol succinate ER 25 mg tablet,exte nded release 24 hr 01-30 00:00: 00 Yes mg Udya Silva TRELEGY 200 ELLIPTA INH - 00:00: 00 Yes Uday Silva PREDNISONE 20MG -17 00:00: 00 Yes Uday Silva ATORVASTATI N 80MG -15 00:00: 00 Yes Uday Silva PAROXETINE 10MG HCL -14 00:00: 00 Yes Uday Silva 1 TABLET PO BID 2022-10 1- 00:00: 00 01-20 00:00 :00 No 500 Uday Silva TRELEGY 200 ELLIPTA INH 2022-10- 00:00: 00 Yes Uday Silva FUROSEMIDE 20MG 2022-10- 00:00: 00 Yes Uday Silva ENTRESTO 49-51MG 2022-10 1- 00:00: 00 Yes Uday Silva LEVOFLOXACI N 500MG 2022-10 0-20 00:00: 00 Yes Uday Silva TAKE 1 TABLET DAILY. 2022-10 0- 00:00: 00 Yes 10 Uday Silva TAKE 1 TABLET BY MOUTH TWICE A DAY 2022-10 0-20 00:00: 00 Yes [id number] Uday Silva TAKE 1 TABLET DAILY DIRECTED. 2022-10 0-20 00:00: 00 Yes 20 Uday Silva TAKE 1 TABLET DAILY. 2022-10 0-20 00:00: 00 Yes 25 Uday Silva 1 TAB PO QD 2022-10 0-20 00:00: 00 01-20 00:00 :00 No 40 Uday Silva TRELEGY 200 ELLIPTA INH 2022-10 0-19 00:00: 00 Yes Uday Silva FLUTICASONE 50MCG RX SPR 2022-10 0-18 00:00: 00 Yes Uday Silva ATORVASTATI N 80MG 2022-10 0-18 00:00: 00 Yes Uday Silva FUROSEMIDE 20MG 2022-10 0-18 00:00: 00 Yes Uday Silva METOPROL SUC 25MG ER 2022-10 0-18 00:00: 00 01-20 00:00 :00 No Uday Silva USE 1 SPRAY IN EACH NOSTRIL ONCE DAILY. 8-16 00:00: 00 Yes 50 Uday Silva TAKE 1 TABLET DIRECTED. 8 00:00: 00 01-20 00:00 :00 No 5 Uday Silva INHALE 1 PUFF DAILY. 06-04 00:00: 00 01-20 00:00 :00 No [id number] 5 Uday Silva INHALE 1 TO 2 PUFFS EVERY 6 HOURS NEEDED. 06-04 00:00: 00 01-20 00:00 :00 No [id number] Uday Richard Silva ENTRESTO 49-51MG 8 00:00: 00 01-20 00:00 :00 No Uday Silva USE 1 SPRAY IN EACH NOSTRIL ONCE DAILY. 05-28 00:00: 00 01-20 00:00 :00 No 50 Uday Silva TAKE 1 TABLET BY MOUTH TWICE A DAY 05-28 00:00: 00 01-20 00:00 :00 No [id number] Uday Silva TAKE 1 TABLET DAILY. 05-28 00:00: 00 01-20 00:00 :00 No 25 Uday Silva TAKE 1 TABLET DAILY. 05-28 00:00: 00 01-20 00:00 :00 No 40 Udayjewel Silva PAROXETINE 10MG HCL 7-13 00:00: 00 Yes Uday Richard Silva METOPROL TAR 25MG 7-05 00:00: 00 01-20 00:00 :00 No Uday Richard Silva TRELEGY 200 ELLIPTA INH 6-17 00:00: 00 01-20 00:00 :00 No Uday F Ricardo ALBUTER 3ML 0.083% 6-12 00:00: 00 Yes Uday Richard Silva ENTRESTO 24-26MG 5-30 00:00: 00 01-20 00:00 :00 No Uday Richard Silva TRELEGY 200 ELLIPTA INH 5-18 00:00: 00 01-20 00:00 :00 No Uday F Ricardo ALBUTER 3ML 0.083% 2023-0 5-12 00:00: 00 Yes Uday Silva ENTRESTO 49-51MG 0 4-24 00:00: 00 01-20 00:00 :00 No Uday Silva PANTOPRAZOL E 40MG DR -19 00:00: 00 Yes Uday Silva PAROXETINE 10MG HCL - 00:00: 00 Yes Uday Silva ALBUTEROL PA HFA 200 INH - 00:00: 00 01-20 00:00 :00 No Uday Silva FLUTICASONE 50MCG RX SPR - 00:00: 00 01-20 00:00 :00 No [id number] Uday Silva TAKE 1 TABLET DAILY DIRECTED. 02-05 00:00: 00 01-20 00:00 :00 No 20 Uday Silva INHALE 1 PUFF DAILY. 02-05 00:00: 00 01-20 00:00 :00 No [id number] 5 Uday Silva TRELEGY 100 ELLIPTA INH 4- 00:00: 00 Yes Uday Silva METOPROL TAR 25MG 0 4-06 00:00: 00 Yes Uday Silva SIMVASTATIN 20MG 0 4-06 00:00: 00 Yes Uday Silva ENTRESTO 24-26MG 2022-0 4-06 00:00: 00 Yes Uday Silva ALBUTER 3ML 0.083% 0 3-14 00:00: 00 Yes Uday Silva ENTRESTO 24-26MG 2022-0 3-05 00:00: 00 Yes Uday Sivla FLUTICASONE 50MCG RX SPR 0 3-05 00:00: 00 01-20 00:00 :00 No Uday Silva TRELEGY ELLIPTA ELLIPTA INH 2021-0 8-14 00:00: 00 Yes Uday Silva SIMVASTATIN 20MG 2021-0 7-15 00:00: 00 Yes [id number] Uday Silva FLUTICASONE PROPIONATE 50MCG SPR 2021-0 7-15 00:00: 00 2024- 04-03 00:00 :00 No [id number] Uday Silva PAROXETINE HYDROCHLORI DE 10MG HCL 0 7-14 00:00: 00 Yes [id number] Uday Silva ALBUTEROL SULFATE 0.083% 0 7-14 00:00: 00 Yes 83 Uday Silva ENTRESTO 24-26MG 0 6-15 00:00: 00 Yes Uday Silva PANTOPRAZOL E SODIUM 40MG DR 0 6-15 00:00: 00 Yes [id number] Uday Silva METOPROLOL TARTRATE 25MG 0 6-12 00:00: 00 Yes [id number] Uday Silva OLMESARTAN MEDOXOMIL 20MG 0 6- 00:00: 00 Yes [id number] Uday Silva ALBUTEROL SULFATE 0.083% 0 5-17 00:00: 00 Yes 83 Uday Silva TRELEGY ELLIPTA ELLIPTA INH 0 5-17 00:00: 00 Yes Uday Silva ProAir HFA 90 mcg/actuati on aerosol inhaler - 00:00: 00 Yes 2mcg/ac tuation Uday Silva benzonatate 100 mg capsule 0 1-27 00:00: 00 Yes 1mg Uday Silva Immunizations Ordered Immunization Name Filled Immunization Name Date Status Comments Source Tdap Tdap 2024-05-28 00:00:00 Completed Uday Silva SHINGRIX VACCINE SHINGRIX VACCINE 2024-05-28 00:00:00 Completed Uday Silva Spikevax 12+ ( formula) Spikevax 12+ ( formula) 2023-10-08 00:00:00 Completed Uday Silva SHINGRIX VACCINE SHINGRIX VACCINE 2023-10-08 00:00:00 Completed Uday Silva Moderna COVID-19 Vaccine Moderna COVID-19 Vaccine 2021-07-05 00:00:00 Completed Moderna COVID-19 Vaccine Moderna COVID-19 Vaccine 2021-06-11 00:00:00 Completed Vital Signs Vital Name Observation Time Observation Value Comments S ni BP Systolic 2024-09-28 08:37:00 Andrey Silva BP Diastolic 2024-09-28 08:37:00 [place] phen F Ricardo Weight Measured 2024-09-28 08:37:00 Uday F Ricardo Height Measured 2024-09-28 08:37:00 Uday F Ricardo Body Temperature 2024-09-28 08:37:00 Uday F Ricardo Heart Rate 2024-09-28 08:37:00 Adore en F Ricardo Respiratory Rate 2024-09-28 08:37:00 Uday F Ricardo BP Systolic 2024-08-26 09:35:00 Step hen F Ricardo BP Diastolic 2024-08-26 09:35:00 [place] phen F Ricardo Weight Measured 2024-08-26 09:35:00 Uday F Ricardo Height Measured 2024-08-26 09:35:00 Uday F Ricardo Body Temperature 2024-08-26 09:35:00 Uday F Ricardo Heart Rate 2024-08-26 09:35:00 Adore en F Ricardo Respiratory Rate 2024-08-26 09:35:00 Uday F Ricardo BP Systolic 2024-08-18 08:23:00 138 mm[Hg] Step hen F Ricardo BP Diastolic 2024-08-18 08:23:00 84 mm[Hg] [place] phen F Ricardo Weight Measured 2024-08-18 08:23:00 201.00 pounds Uday F Ricardo Height Measured 2024-08-18 08:23:00 66.00 inches Uday F Ricardo Body Temperature 2024-08-18 08:23:00 97.00 degrees Uday F Ricardo Heart Rate 2024-08-18 08:23:00 54.00 /min Adore en F Ricardo Respiratory Rate 2024-08-18 08:23:00 20.00 /min Uday F Ricardo BP Diastolic 2024-04-23 09:20:00 82 mm[Hg] [place] phen F Ricardo Weight Measured 2024-04-23 09:20:00 204.00 pounds Uday F Ricardo Height Measured 2024-04-23 09:20:00 66.00 inches Uday F Ricardo Body Temperature 2024-04-23 09:20:00 98.20 degrees Uday F Ricardo Heart Rate 2024-04-23 09:20:00 60.00 /min Adore en F Ricardo Respiratory Rate 2024-04-23 09:20:00 20.00 /min Uday F Ricardo BP Systolic 2024-04-23 09:20:00 110 mm[Hg] Step hen F Ricardo BP Systolic 2023-09-03 13:29:00 126 mm[Hg] Step hen F Ricardo BP Diastolic 2023-09-03 13:29:00 80 mm[Hg] [place] phen F Ricardo Weight Measured 2023-09-03 13:29:00 210.00 pounds Uday F Ricardo Height Measured 2023-09-03 13:29:00 63.70 inches Uday F Ricardo Body Temperature 2023-09-03 13:29:00 97.30 degrees Uday F Ricardo Heart Rate 2023-09-03 13:29:00 69.00 /min Adore en F Ricardo Respiratory Rate 2023-09-03 13:29:00 18.00 /min Uday F Ricardo BP Systolic 2023-09-01 09:24:00 138 mm[Hg] Step hen F Ricardo BP Diastolic 2023-09-01 09:24:00 89 mm[Hg] [place] phen F Ricardo Weight Measured 2023-09-01 09:24:00 208.00 pounds Uday F Ricardo Height Measured 2023-09-01 09:24:00 63.70 inches Uday F Ricardo Body Temperature 2023-09-01 09:24:00 97.70 degrees Uday F Ricardo Heart Rate 2023-09-01 09:24:00 Adore en F Ricardo Respiratory Rate 2023-09-01 09:24:00 Uday F Ricardo BP Systolic 2023-08-25 07:58:00 142 mm[Hg] Step hen F Ricardo BP Diastolic 2023-08-25 07:58:00 82 mm[Hg] [place] phen F Ricardo Weight Measured 2023-08-25 07:58:00 210.00 pounds Uday F Ricardo Height Measured 2023-08-25 07:58:00 63.70 inches Uday F Ricardo Body Temperature 2023-08-25 07:58:00 97.00 degrees Uday F Ricardo Heart Rate 2023-08-25 07:58:00 60.00 /min Adore en F Ricardo Respiratory Rate 2023-08-25 07:58:00 18.00 /min Uday F Ricardo BP Systolic 2023-08-08 14:16:00 Step hen F Ricardo BP Diastolic 2023-08-08 14:16:00 [place] phen F Ricardo Weight Measured 2023-08-08 14:16:00 Uday F Ricardo Height Measured 2023-08-08 14:16:00 63.00 inches Uday F Ricardo Body Temperature 2023-08-08 14:16:00 Uday F Ricardo Heart Rate 2023-08-08 14:16:00 72.00 /min Adore en F Ricardo Respiratory Rate 2023-08-08 14:16:00 Uday F Ricardo BP Systolic 2023-06-04 08:17:00 122 mm[Hg] Step hen F Ricardo BP Diastolic 2023-06-04 08:17:00 70 mm[Hg] [place] phen F Ricardo Weight Measured 2023-06-04 08:17:00 217.00 pounds Uday F Ricardo Height Measured 2023-06-04 08:17:00 63.70 inches Uday F Ricardo Body Temperature 2023-06-04 08:17:00 98.30 degrees Uday F Ricardo Heart Rate 2023-06-04 08:17:00 87.00 /min Adore en F Ricardo Respiratory Rate 2023-06-04 08:17:00 18.00 /min Uday F Ricardo BP Systolic 2023-05-28 07:27:00 136 mm[Hg] Step hen F Ricardo BP Diastolic 2023-05-28 07:27:00 70 mm[Hg] [place] phen F Ricardo Weight Measured 2023-05-28 07:27:00 219.00 pounds Uday F Ricardo Height Measured 2023-05-28 07:27:00 63.70 inches Uday F Ricardo Body Temperature 2023-05-28 07:27:00 97.40 degrees Uday F Ricardo Heart Rate 2023-05-28 07:27:00 58.00 /min Adore en F Ricardo Respiratory Rate 2023-05-28 07:27:00 18.00 /min Uday F Ricardo BP Systolic 2023-02-03 08:22:00 134 mm[Hg] Step hen F Ricardo BP Diastolic 2023-02-03 08:22:00 58 mm[Hg] [place] phen F Ricardo Weight Measured 2023-02-03 08:22:00 211.40 pounds Uday F Ricardo Height Measured 2023-02-03 08:22:00 63.70 inches Uday F Ricardo Body Temperature 2023-02-03 08:22:00 98.70 degrees Uday Silva Heart Rate 2023-02-03 08:22:00 53.00 /min Adore Silva Respiratory Rate 2023-02-03 08:22:00 20.00 /min Uday Silva Encounters Start Date/Time End Date/Time Encounter Type Admission Type Attending [facility] Care Department Encounter ID Source 2024-09-28 08:37:03 2024-09-28 08:37:03 Outpatient SFA SFA [id number] Uday Silva 2024-09-28 00:00:00 2024-09-28 00:00:00 Outpatient Visit SFA [id number] Uday Silva 2024-08-27 09:43:50 2024-08-27 09:43:50 Outpatient SFA SFA [id number] Uday Silva 2024-08-26 09:47:44 2024-08-26 09:47:44 Outpatient SFA SFA [id number] Uday Silva 2024-08-26 00:00:00 2024-08-26 00:00:00 Outpatient Visit SFA SFA [id number] Uday Silva 2024-08-18 08:17:07 2024-08-18 08:17:07 Outpatient SFA SFA [id number] Uday Silva 2024-08-18 00:00:00 2024-08-18 00:00:00 Outpatient Visit SFA [id number] Uday Silva 2024-04-23 09:20:37 2024-04-23 09:20:37 Outpatient SFA SFA [id number] Uday Silva 2024-04-23 00:00:00 2024-04-23 00:00:00 Outpatient Visit SFA [id number] Uday Silva 2023-09-03 13:19:29 2023-09-03 13:19:29 Outpatient [place] [id number] Uday Silva 2023-09-01 09:23:03 2023-09-01 09:23:03 Outpatient [place] [id number] Uday Silva 2023-08-25 07:43:13 2023-08-25 07:43:13 Outpatient [place] [id number] Uday Silva 2023-05-28 07:14:04 2023-05-28 07:14:04 Outpatient [place] [id number] Uday Silva 2021-07-05 00:00:00 2021-07-05 00:00:00 Outpatient [facility] GCCOVIDV [id number] GCCOVID V 2021-06-11 00:00:00 2021-06-11 00:00:00 Outpatient GCCOVIDV GCCOVIDV [id number] GCCOVID V Results Test Description Test Time Test Comments Results Result Co mments Source Uday SilvaCOMPREHENSIVE METABOLIC [id number] 00:00:00* Test Item Value Reference Range Interpretation Comme nts GLUCOSE (test code = 2217) 101 MG/DL BUN (test code = 2208) 21 MG/DL CREATININE (test code = 2214) 0.89 MG/DL eGFR (2020 CKD-EPI) (test co de = 37341) 68 ML/MIN/1.73 CALC BUN/CREAT (test code = 2235) 24 RATIO SODIUM (test code = 2231) 144 MEQ/L POTASSIUM (test code = 2228) 4.3 MEQ/L CHLORIDE (test code = 2215) 110 MEQ/L CARBON DIOXIDE (test code = 2206) 24 MEQ/L CALCIUM (test code = 2209) 9.7 MG/DL PROTEIN, TOTAL (test code = 2229) 5.9 G/DL ALBUMIN (test code = 2201) 4.0 G/DL CALC GLOBULIN (test code = 2240) 1.9 G/DL CALC A/G RATIO (test code = 2234) 2.1 RATIO BILIRUBIN, TOTAL (test code = 2207) 0.8 MG/DL ALKALINE PHOSPHATASE (test code = 2204) 109 U/L AST (test code = 2218) 29 U/L ALT (test code = 2219) 27 U/L Uday SilvaLIPID [id number] 00:00:00* Test Item Value Reference Range Interpretation Comme nts CHOLESTEROL (test code = 2210) 92 MG/DL TRIGLYCERIDES (test code = 2232) 75 MG/DL HDL CHOLESTEROL (test code = 2220) 45 MG/DL CALC LDL CHOL (test code = 2237) 31 MG/DL RISK RATIO LDL/HDL (test cod e = 2238) 0.69 RATIO Uday SilvaCOMPREHENSIVE METABOLIC [id number] 00:00:00* Test Item Value Reference Range Interpretation Comme nts GLUCOSE (test code = 2217) 101 MG/DL BUN (test code = 2208) 21 MG/DL CREATININE (test code = 2214) 0.89 MG/DL eGFR (2020 CKD-EPI) (test co de = 35894) 68 ML/MIN/1.73 CALC BUN/CREAT (test code = 2235) 24 RATIO SODIUM (test code = 2231) 144 MEQ/L POTASSIUM (test code = 2228) 4.3 MEQ/L CHLORIDE (test code = 2215) 110 MEQ/L CARBON DIOXIDE (test code = 2206) 24 MEQ/L CALCIUM (test code = 2209) 9.7 MG/DL PROTEIN, TOTAL (test code = 2229) 5.9 G/DL ALBUMIN (test code = 2201) 4.0 G/DL CALC GLOBULIN (test code = 2240) 1.9 G/DL CALC A/G RATIO (test code = 2234) 2.1 RATIO BILIRUBIN, TOTAL (test code = 2207) 0.8 MG/DL ALKALINE PHOSPHATASE (test code = 2204) 109 U/L AST (test code = 2218) 29 U/L ALT (test code = 2219) 27 U/L Uday Ramos AustinVAGINAL PATHOGENS DNA [id number] 00:00:00* Test Item Value Reference Range Interpretation Comme nts CODY SPECIES (test code = ) NEGATIVE G. VAGINALIS (test code = ) POSITIVE T. VAGINALIS (test code = ) NEGATIVE Uday Ramos AustinVAGINAL PATHOGENS DNA [id number] 00:00:00* Test Item Value Reference Range Interpretation Comme nts CODY SPECIES (test code = ) NEGATIVE G. VAGINALIS (test code = ) POSITIVE T. VAGINALIS (test code = ) NEGATIVE Uday Ramos AustinVAGINAL PATHOGENS DNA [id number] 00:00:00* Test Item Value Reference Range Interpretation Comme nts CODY SPECIES (test code = ) NEGATIVE G. VAGINALIS (test code = 33617) POSITIVE T. VAGINALIS (test code = ) NEGATIVE Uday Ramos AustinVAGINAL PATHOGENS DNA [id number] 00:00:00* Test Item Value Reference Range Interpretation Comme nts CODY SPECIES (test code = ) NEGATIVE G. VAGINALIS (test code = 03773) POSITIVE T. VAGINALIS (test code = ) NEGATIVE Uday Ramos AustinCBC W/AUTO [id number] 00:00:00* Test Item Value Reference Range Interpretation Comme nts WBC (test code = 1001) 3.0 K/UL RBC (test code = 1002) 3.79 M/UL HEMOGLOBIN (test code = 1003) 11.1 G/DL HEMATOCRIT (test code = 1004) 35.3 % MCV (test code = 1005) 93.1 fL MCH (test code = 1006) 29.3 PG MCHC (test code = 1007) 31.4 G/DL RDW (test code = 1038) 13.4 % NEUTROPHILS (test code = 1008) 60.5 % LYMPHOCYTES (test code = 1010) 27.4 % MONOCYTES (test code = 1011) 9.8 % EOSINOPHILS (test code = 1012) 1.7 % BASOPHILS (test code = 1013) 0.3 % IMMATURE GRANULOCYTES (test code = 1036) 0.3 % NUCLEATED RBCS (test code = 1065) 0.0 /100WBC'S PLATELET COUNT (test code = 1015) 91 K/UL ABSOLUTE NEUTROPHILS (test c ode = 1066) 1.79 K/UL ABSOLUTE LYMPHOCYTES (test c ode = 1067) 0.81 K/UL ABSOLUTE MONOCYTES (test cod e = 1068) 0.29 K/UL ABSOLUTE EOSINOPHILS (test c ode = 1040) 0.05 K/UL ABSOLUTE BASOPHILS (test cod e = 1069) 0.01 K/UL ABS IMMATURE GRANULOCYTES (t est code = 1020) 0.01 K/UL ABS NUCLEATED RBCS (test cod e = 88770) 0.00 K/UL Uday SilvaLIPID [id number] 00:00:00* Test Item Value Reference Range Interpretation Comme nts CHOLESTEROL (test code = 2210) 142 MG/DL TRIGLYCERIDES (test code = 2232) 114 MG/DL HDL CHOLESTEROL (test code = 2220) 62 MG/DL CALC LDL CHOL (test code = 2237) 60 MG/DL RISK RATIO LDL/HDL (test cod e = 2238) 0.97 RATIO Uday SilvaCOMPREHENSIVE METABOLIC [id number] 00:00:00* Test Item Value Reference Range Interpretation Comme nts GLUCOSE (test code = 2217) 114 MG/DL BUN (test code = 2208) 19 MG/DL CREATININE (test code = 2214) 0.92 MG/DL eGFR (2020 CKD-EPI) (test co de = 95403) 65 ML/MIN/1.73 CALC BUN/CREAT (test code = 2235) 21 RATIO SODIUM (test code = 2231) 146 MEQ/L POTASSIUM (test code = 2228) 4.5 MEQ/L CHLORIDE (test code = 2215) 109 MEQ/L CARBON DIOXIDE (test code = 2206) 23 MEQ/L CALCIUM (test code = 2209) 9.6 MG/DL PROTEIN, TOTAL (test code = 2229) 6.2 G/DL ALBUMIN (test code = 2201) 4.3 G/DL CALC GLOBULIN (test code = 2240) 1.9 G/DL CALC A/G RATIO (test code = 2234) 2.3 RATIO BILIRUBIN, TOTAL (test code = 2207) 1.0 MG/DL ALKALINE PHOSPHATASE (test code = 2204) 73 U/L AST (test code = 2218) 20 U/L ALT (test code = 2219) 16 U/L Uday Ramos AustinURINALYSIS W/REFLEX [id number] 00:00:00* Test Item Value Reference Range Interpretation Comme nts COLOR (test code = 1501) YELLOW APPEARANCE (test code = 1502) CLEAR SPECIFIC GRAVITY (test code = 1503) 1.013 LEUKOCYTE ESTERASE (test cod e = 1504) 2+ NITRITE (test code = 1505) NEGATIVE pH (test code = 1506) 5.5 PROTEIN (test code = 1507) NEGATIVE GLUCOSE (test code = 1508) NEGATIVE KETONES (test code = 1509) NEGATIVE UROBILINOGEN (test code = 1510) 0.2 MG/DL BILIRUBIN (test code = 1511) NEGATIVE OCCULT BLOOD (test code = 1512) NEGATIVE WHITE BLOOD CELLS (test code = 1513) 16-20 /HPF RED BLOOD CELLS (test code = 1514) 0-2 /HPF EPITHELIAL CELLS (test code = 16568) 21-30 /HPF BACTERIA (test code = 1515) TRACE CASTS, HYALINE (test code = 1517) NONE SEEN Uday SilvaCBC W/AUTO [id number] 00:00:00* Test Item Value Reference Range Interpretation Comme nts WBC (test code = 1001) 3.0 K/UL RBC (test code = 1002) 3.79 M/UL HEMOGLOBIN (test code = 1003) 11.1 G/DL HEMATOCRIT (test code = 1004) 35.3 % MCV (test code = 1005) 93.1 fL MCH (test code = 1006) 29.3 PG MCHC (test code = 1007) 31.4 G/DL RDW (test code = 1038) 13.4 % NEUTROPHILS (test code = 1008) 60.5 % LYMPHOCYTES (test code = 1010) 27.4 % MONOCYTES (test code = 1011) 9.8 % EOSINOPHILS (test code = 1012) 1.7 % BASOPHILS (test code = 1013) 0.3 % IMMATURE GRANULOCYTES (test code = 1036) 0.3 % NUCLEATED RBCS (test code = 1065) 0.0 /100WBC'S PLATELET COUNT (test code = 1015) 91 K/UL ABSOLUTE NEUTROPHILS (test c ode = 1066) 1.79 K/UL ABSOLUTE LYMPHOCYTES (test c ode = 1067) 0.81 K/UL ABSOLUTE MONOCYTES (test cod e = 1068) 0.29 K/UL ABSOLUTE EOSINOPHILS (test c ode = 1040) 0.05 K/UL ABSOLUTE BASOPHILS (test cod e = 1069) 0.01 K/UL ABS IMMATURE GRANULOCYTES (t est code = 1020) 0.01 K/UL ABS NUCLEATED RBCS (test cod e = 97418) 0.00 K/UL Uday SilvaLIPID [id number] 00:00:00* Test Item Value Reference Range Interpretation Comme nts CHOLESTEROL (test code = 2210) 142 MG/DL TRIGLYCERIDES (test code = 2232) 114 MG/DL HDL CHOLESTEROL (test code = 2220) 62 MG/DL CALC LDL CHOL (test code = 2237) 60 MG/DL RISK RATIO LDL/HDL (test cod e = 2238) 0.97 RATIO Uday SilvaCOMPREHENSIVE METABOLIC [id number] 00:00:00* Test Item Value Reference Range Interpretation Comme nts GLUCOSE (test code = 2217) 114 MG/DL BUN (test code = 2208) 19 MG/DL CREATININE (test code = 2214) 0.92 MG/DL eGFR (2020 CKD-EPI) (test co de = 22994) 65 ML/MIN/1.73 CALC BUN/CREAT (test code = 2235) 21 RATIO SODIUM (test code = 2231) 146 MEQ/L POTASSIUM (test code = 2228) 4.5 MEQ/L CHLORIDE (test code = 2215) 109 MEQ/L CARBON DIOXIDE (test code = 2206) 23 MEQ/L CALCIUM (test code = 2209) 9.6 MG/DL PROTEIN, TOTAL (test code = 2229) 6.2 G/DL ALBUMIN (test code = 2201) 4.3 G/DL CALC GLOBULIN (test code = 2240) 1.9 G/DL CALC A/G RATIO (test code = 2234) 2.3 RATIO BILIRUBIN, TOTAL (test code = 2207) 1.0 MG/DL ALKALINE PHOSPHATASE (test code = 2204) 73 U/L AST (test code = 2218) 20 U/L ALT (test code = 2219) 16 U/L Uday Ramos AustinURINALYSIS W/REFLEX [id number] 00:00:00* Test Item Value Reference Range Interpretation Comme nts COLOR (test code = 1501) YELLOW APPEARANCE (test code = 1502) CLEAR SPECIFIC GRAVITY (test code = 1503) 1.013 LEUKOCYTE ESTERASE (test cod e = 1504) 2+ NITRITE (test code = 1505) NEGATIVE pH (test code = 1506) 5.5 PROTEIN (test code = 1507) NEGATIVE GLUCOSE (test code = 1508) NEGATIVE KETONES (test code = 1509) NEGATIVE UROBILINOGEN (test code = 1510) 0.2 MG/DL BILIRUBIN (test code = 1511) NEGATIVE OCCULT BLOOD (test code = 1512) NEGATIVE WHITE BLOOD CELLS (test code = 1513) 16-20 /HPF RED BLOOD CELLS (test code = 1514) 0-2 /HPF EPITHELIAL CELLS (test code = 95897) 21-30 /HPF BACTERIA (test code = 1515) TRACE CASTS, HYALINE (test code = 1517) NONE SEEN Uday SilvaCBC W/AUTO [id number] 00:00:00* Test Item Value Reference Range Interpretation Comme nts WBC (test code = 1001) 3.0 K/UL RBC (test code = 1002) 3.79 M/UL HEMOGLOBIN (test code = 1003) 11.1 G/DL HEMATOCRIT (test code = 1004) 35.3 % MCV (test code = 1005) 93.1 fL MCH (test code = 1006) 29.3 PG MCHC (test code = 1007) 31.4 G/DL RDW (test code = 1038) 13.4 % NEUTROPHILS (test code = 1008) 60.5 % LYMPHOCYTES (test code = 1010) 27.4 % MONOCYTES (test code = 1011) 9.8 % EOSINOPHILS (test code = 1012) 1.7 % BASOPHILS (test code = 1013) 0.3 % IMMATURE GRANULOCYTES (test code = 1036) 0.3 % NUCLEATED RBCS (test code = 1065) 0.0 /100WBC'S PLATELET COUNT (test code = 1015) 91 K/UL ABSOLUTE NEUTROPHILS (test c ode = 1066) 1.79 K/UL ABSOLUTE LYMPHOCYTES (test c ode = 1067) 0.81 K/UL ABSOLUTE MONOCYTES (test cod e = 1068) 0.29 K/UL ABSOLUTE EOSINOPHILS (test c ode = 1040) 0.05 K/UL ABSOLUTE BASOPHILS (test cod e = 1069) 0.01 K/UL ABS IMMATURE GRANULOCYTES (t est code = 1020) 0.01 K/UL ABS NUCLEATED RBCS (test cod e = 75308) 0.00 K/UL Uday SilvaLIPID [id number] 00:00:00* Test Item Value Reference Range Interpretation Comme nts CHOLESTEROL (test code = 2210) 142 MG/DL TRIGLYCERIDES (test code = 2232) 114 MG/DL HDL CHOLESTEROL (test code = 2220) 62 MG/DL CALC LDL CHOL (test code = 2237) 60 MG/DL RISK RATIO LDL/HDL (test cod e = 2238) 0.97 RATIO Uday SilvaCOMPREHENSIVE METABOLIC [id number] 00:00:00* Test Item Value Reference Range Interpretation Comme nts GLUCOSE (test code = 2217) 114 MG/DL BUN (test code = 2208) 19 MG/DL CREATININE (test code = 2214) 0.92 MG/DL eGFR (2020 CKD-EPI) (test co de = 30462) 65 ML/MIN/1.73 CALC BUN/CREAT (test code = 2235) 21 RATIO SODIUM (test code = 2231) 146 MEQ/L POTASSIUM (test code = 2228) 4.5 MEQ/L CHLORIDE (test code = 2215) 109 MEQ/L CARBON DIOXIDE (test code = 2206) 23 MEQ/L CALCIUM (test code = 2209) 9.6 MG/DL PROTEIN, TOTAL (test code = 2229) 6.2 G/DL ALBUMIN (test code = 2201) 4.3 G/DL CALC GLOBULIN (test code = 2240) 1.9 G/DL CALC A/G RATIO (test code = 2234) 2.3 RATIO BILIRUBIN, TOTAL (test code = 2207) 1.0 MG/DL ALKALINE PHOSPHATASE (test code = 2204) 73 U/L AST (test code = 2218) 20 U/L ALT (test code = 2219) 16 U/L Uday SilvaURINALYSIS W/REFLEX [id number] 00:00:00* Test Item Value Reference Range Interpretation Comme nts COLOR (test code = 1501) YELLOW APPEARANCE (test code = 1502) CLEAR SPECIFIC GRAVITY (test code = 1503) 1.013 LEUKOCYTE ESTERASE (test cod e = 1504) 2+ NITRITE (test code = 1505) NEGATIVE pH (test code = 1506) 5.5 PROTEIN (test code = 1507) NEGATIVE GLUCOSE (test code = 1508) NEGATIVE KETONES (test code = 1509) NEGATIVE UROBILINOGEN (test code = 1510) 0.2 MG/DL BILIRUBIN (test code = 1511) NEGATIVE OCCULT BLOOD (test code = 1512) NEGATIVE WHITE BLOOD CELLS (test code = 1513) 16-20 /HPF RED BLOOD CELLS (test code = 1514) 0-2 /HPF EPITHELIAL CELLS (test code = 85570) 21-30 /HPF BACTERIA (test code = 1515) TRACE CASTS, HYALINE (test code = 1517) NONE SEEN Uday SilvaCBC W/AUTO [id number] 00:00:00* Test Item Value Reference Range Interpretation Comme nts WBC (test code = 1001) 3.0 K/UL RBC (test code = 1002) 3.79 M/UL HEMOGLOBIN (test code = 1003) 11.1 G/DL HEMATOCRIT (test code = 1004) 35.3 % MCV (test code = 1005) 93.1 fL MCH (test code = 1006) 29.3 PG MCHC (test code = 1007) 31.4 G/DL RDW (test code = 1038) 13.4 % NEUTROPHILS (test code = 1008) 60.5 % LYMPHOCYTES (test code = 1010) 27.4 % MONOCYTES (test code = 1011) 9.8 % EOSINOPHILS (test code = 1012) 1.7 % BASOPHILS (test code = 1013) 0.3 % IMMATURE GRANULOCYTES (test code = 1036) 0.3 % NUCLEATED RBCS (test code = 1065) 0.0 /100WBC'S PLATELET COUNT (test code = 1015) 91 K/UL ABSOLUTE NEUTROPHILS (test c ode = 1066) 1.79 K/UL ABSOLUTE LYMPHOCYTES (test c ode = 1067) 0.81 K/UL ABSOLUTE MONOCYTES (test cod e = 1068) 0.29 K/UL ABSOLUTE EOSINOPHILS (test c ode = 1040) 0.05 K/UL ABSOLUTE BASOPHILS (test cod e = 1069) 0.01 K/UL ABS IMMATURE GRANULOCYTES (t est code = 1020) 0.01 K/UL ABS NUCLEATED RBCS (test cod e = 49573) 0.00 K/UL Uday SilvaLIPID [id number] 00:00:00* Test Item Value Reference Range Interpretation Comme nts CHOLESTEROL (test code = 2210) 142 MG/DL TRIGLYCERIDES (test code = 2232) 114 MG/DL HDL CHOLESTEROL (test code = 2220) 62 MG/DL CALC LDL CHOL (test code = 2237) 60 MG/DL RISK RATIO LDL/HDL (test cod e = 2238) 0.97 RATIO Uday SilvaCOMPREHENSIVE METABOLIC [id number] 00:00:00* Test Item Value Reference Range Interpretation Comme nts GLUCOSE (test code = 2217) 114 MG/DL BUN (test code = 2208) 19 MG/DL CREATININE (test code = 2214) 0.92 MG/DL eGFR (2020 CKD-EPI) (test co de = 22254) 65 ML/MIN/1.73 CALC BUN/CREAT (test code = 2235) 21 RATIO SODIUM (test code = 2231) 146 MEQ/L POTASSIUM (test code = 2228) 4.5 MEQ/L CHLORIDE (test code = 2215) 109 MEQ/L CARBON DIOXIDE (test code = 2206) 23 MEQ/L CALCIUM (test code = 2209) 9.6 MG/DL PROTEIN, TOTAL (test code = 2229) 6.2 G/DL ALBUMIN (test code = 2201) 4.3 G/DL CALC GLOBULIN (test code = 2240) 1.9 G/DL CALC A/G RATIO (test code = 2234) 2.3 RATIO BILIRUBIN, TOTAL (test code = 2207) 1.0 MG/DL ALKALINE PHOSPHATASE (test code = 2204) 73 U/L AST (test code = 2218) 20 U/L ALT (test code = 2219) 16 U/L Uday SilvaURINALYSIS W/REFLEX [id number] 00:00:00* Test Item Value Reference Range Interpretation Comme nts COLOR (test code = 1501) YELLOW APPEARANCE (test code = 1502) CLEAR SPECIFIC GRAVITY (test code = 1503) 1.013 LEUKOCYTE ESTERASE (test cod e = 1504) 2+ NITRITE (test code = 1505) NEGATIVE pH (test code = 1506) 5.5 PROTEIN (test code = 1507) NEGATIVE GLUCOSE (test code = 1508) NEGATIVE KETONES (test code = 1509) NEGATIVE UROBILINOGEN (test code = 1510) 0.2 MG/DL BILIRUBIN (test code = 1511) NEGATIVE OCCULT BLOOD (test code = 1512) NEGATIVE WHITE BLOOD CELLS (test code = 1513) 16-20 /HPF RED BLOOD CELLS (test code = 1514) 0-2 /HPF EPITHELIAL CELLS (test code = 11714) 21-30 /HPF BACTERIA (test code = 1515) TRACE CASTS, HYALINE (test code = 1517) NONE SEEN Uday SilvaCBC W/AUTO [id number] 00:00:00* Test Item Value Reference Range Interpretation Comme nts WBC (test code = 1001) 3.8 K/UL RBC (test code = 1002) 4.15 M/UL HEMOGLOBIN (test code = 1003) 12.2 G/DL HEMATOCRIT (test code = 1004) 37.1 % MCV (test code = 1005) 89.4 fL MCH (test code = 1006) 29.4 PG MCHC (test code = 1007) 32.9 G/DL RDW (test code = 1038) 13.6 % NEUTROPHILS (test code = 1008) 60.0 % LYMPHOCYTES (test code = 1010) 27.1 % MONOCYTES (test code = 1011) 10.8 % EOSINOPHILS (test code = 1012) 1.6 % BASOPHILS (test code = 1013) 0.5 % IMMATURE GRANULOCYTES (test code = 1036) 0.0 % NUCLEATED RBCS (test code = 1065) 0.0 /100WBC'S PLATELET COUNT (test code = 1015) 92 K/UL ABSOLUTE NEUTROPHILS (test c ode = 1066) 2.28 K/UL ABSOLUTE LYMPHOCYTES (test c ode = 1067) 1.03 K/UL ABSOLUTE MONOCYTES (test cod e = 1068) 0.41 K/UL ABSOLUTE EOSINOPHILS (test c ode = 1040) 0.06 K/UL ABSOLUTE BASOPHILS (test cod e = 1069) 0.02 K/UL ABS IMMATURE GRANULOCYTES (t est code = 1020) 0.00 K/UL ABS NUCLEATED RBCS (test cod e = 44807) 0.00 K/UL Uday SilvaCOMPREHENSIVE METABOLIC [id number] 00:00:00* Test Item Value Reference Range Interpretation Comme nts GLUCOSE (test code = 2217) 87 MG/DL BUN (test code = 2208) 27 MG/DL CREATININE (test code = 2214) 1.05 MG/DL eGFR (2020 CKD-EPI) (test co de = 75213) 56 ML/MIN/1.73 CALC BUN/CREAT (test code = 2235) 26 RATIO SODIUM (test code = 2231) 143 MEQ/L POTASSIUM (test code = 2228) 4.5 MEQ/L CHLORIDE (test code = 2215) 105 MEQ/L CARBON DIOXIDE (test code = 2206) 27 MEQ/L CALCIUM (test code = 2209) 9.8 MG/DL PROTEIN, TOTAL (test code = 2229) 6.4 G/DL ALBUMIN (test code = 2201) 4.5 G/DL CALC GLOBULIN (test code = 2240) 1.9 G/DL CALC A/G RATIO (test code = 2234) 2.4 RATIO BILIRUBIN, TOTAL (test code = 2207) 0.6 MG/DL ALKALINE PHOSPHATASE (test code = 2204) 75 U/L AST (test code = 2218) 18 U/L ALT (test code = 2219) 12 U/L Uday SlivaURINALYSIS W/REFLEX [id number] 00:00:00* Test Item Value Reference Range Interpretation Comme nts COLOR (test code = 1501) YELLOW APPEARANCE (test code = 1502) CLEAR SPECIFIC GRAVITY (test code = 1503) 1.023 LEUKOCYTE ESTERASE (test cod e = 1504) NEGATIVE NITRITE (test code = 1505) NEGATIVE pH (test code = 1506) 5.0 PROTEIN (test code = 1507) NEGATIVE GLUCOSE (test code = 1508) NEGATIVE KETONES (test code = 1509) NEGATIVE UROBILINOGEN (test code = 1510) 0.2 MG/DL BILIRUBIN (test code = 1511) NEGATIVE OCCULT BLOOD (test code = 1512) NEGATIVE Uday Richard RicardoCBC W/AUTO [id number] 00:00:00* Test Item Value Reference Range Interpretation Comme nts WBC (test code = 1001) 3.8 K/UL RBC (test code = 1002) 4.15 M/UL HEMOGLOBIN (test code = 1003) 12.2 G/DL HEMATOCRIT (test code = 1004) 37.1 % MCV (test code = 1005) 89.4 fL MCH (test code = 1006) 29.4 PG MCHC (test code = 1007) 32.9 G/DL RDW (test code = 1038) 13.6 % NEUTROPHILS (test code = 1008) 60.0 % LYMPHOCYTES (test code = 1010) 27.1 % MONOCYTES (test code = 1011) 10.8 % EOSINOPHILS (test code = 1012) 1.6 % BASOPHILS (test code = 1013) 0.5 % IMMATURE GRANULOCYTES (test code = 1036) 0.0 % NUCLEATED RBCS (test code = 1065) 0.0 /100WBC'S PLATELET COUNT (test code = 1015) 92 K/UL ABSOLUTE NEUTROPHILS (test c ode = 1066) 2.28 K/UL ABSOLUTE LYMPHOCYTES (test c ode = 1067) 1.03 K/UL ABSOLUTE MONOCYTES (test cod e = 1068) 0.41 K/UL ABSOLUTE EOSINOPHILS (test c ode = 1040) 0.06 K/UL ABSOLUTE BASOPHILS (test cod e = 1069) 0.02 K/UL ABS IMMATURE GRANULOCYTES (t est code = 1020) 0.00 K/UL ABS NUCLEATED RBCS (test cod e = 15675) 0.00 K/UL Uday SilvaCOMPREHENSIVE METABOLIC [id number] 00:00:00* Test Item Value Reference Range Interpretation Comme nts GLUCOSE (test code = 2217) 87 MG/DL BUN (test code = 2208) 27 MG/DL CREATININE (test code = 2214) 1.05 MG/DL eGFR (2020 CKD-EPI) (test co de = 87198) 56 ML/MIN/1.73 CALC BUN/CREAT (test code = 2235) 26 RATIO SODIUM (test code = 2231) 143 MEQ/L POTASSIUM (test code = 2228) 4.5 MEQ/L CHLORIDE (test code = 2215) 105 MEQ/L CARBON DIOXIDE (test code = 2206) 27 MEQ/L CALCIUM (test code = 2209) 9.8 MG/DL PROTEIN, TOTAL (test code = 2229) 6.4 G/DL ALBUMIN (test code = 2201) 4.5 G/DL CALC GLOBULIN (test code = 2240) 1.9 G/DL CALC A/G RATIO (test code = 2234) 2.4 RATIO BILIRUBIN, TOTAL (test code = 2207) 0.6 MG/DL ALKALINE PHOSPHATASE (test code = 2204) 75 U/L AST (test code = 2218) 18 U/L ALT (test code = 2219) 12 U/L Uday F AustinURINALYSIS W/REFLEX [id number] 00:00:00* Test Item Value Reference Range Interpretation Comme nts COLOR (test code = 1501) YELLOW APPEARANCE (test code = 1502) CLEAR SPECIFIC GRAVITY (test code = 1503) 1.023 LEUKOCYTE ESTERASE (test cod e = 1504) NEGATIVE NITRITE (test code = 1505) NEGATIVE pH (test code = 1506) 5.0 PROTEIN (test code = 1507) NEGATIVE GLUCOSE (test code = 1508) NEGATIVE KETONES (test code = 1509) NEGATIVE UROBILINOGEN (test code = 1510) 0.2 MG/DL BILIRUBIN (test code = 1511) NEGATIVE OCCULT BLOOD (test code = 1512) NEGATIVE Uday Richard RicardoCBC W/AUTO [id number] 00:00:00* Test Item Value Reference Range Interpretation Comme nts WBC (test code = 1001) 3.8 K/UL RBC (test code = 1002) 4.15 M/UL HEMOGLOBIN (test code = 1003) 12.2 G/DL HEMATOCRIT (test code = 1004) 37.1 % MCV (test code = 1005) 89.4 fL MCH (test code = 1006) 29.4 PG MCHC (test code = 1007) 32.9 G/DL RDW (test code = 1038) 13.6 % NEUTROPHILS (test code = 1008) 60.0 % LYMPHOCYTES (test code = 1010) 27.1 % MONOCYTES (test code = 1011) 10.8 % EOSINOPHILS (test code = 1012) 1.6 % BASOPHILS (test code = 1013) 0.5 % IMMATURE GRANULOCYTES (test code = 1036) 0.0 % NUCLEATED RBCS (test code = 1065) 0.0 /100WBC'S PLATELET COUNT (test code = 1015) 92 K/UL ABSOLUTE NEUTROPHILS (test c ode = 1066) 2.28 K/UL ABSOLUTE LYMPHOCYTES (test c ode = 1067) 1.03 K/UL ABSOLUTE MONOCYTES (test cod e = 1068) 0.41 K/UL ABSOLUTE EOSINOPHILS (test c ode = 1040) 0.06 K/UL ABSOLUTE BASOPHILS (test cod e = 1069) 0.02 K/UL ABS IMMATURE GRANULOCYTES (t est code = 1020) 0.00 K/UL ABS NUCLEATED RBCS (test cod e = 70350) 0.00 K/UL Uday SilvaCOMPREHENSIVE METABOLIC [id number] 00:00:00* Test Item Value Reference Range Interpretation Comme nts GLUCOSE (test code = 2217) 87 MG/DL BUN (test code = 2208) 27 MG/DL CREATININE (test code = 2214) 1.05 MG/DL eGFR (2020 CKD-EPI) (test co de = 49838) 56 ML/MIN/1.73 CALC BUN/CREAT (test code = 2235) 26 RATIO SODIUM (test code = 2231) 143 MEQ/L POTASSIUM (test code = 2228) 4.5 MEQ/L CHLORIDE (test code = 2215) 105 MEQ/L CARBON DIOXIDE (test code = 2206) 27 MEQ/L CALCIUM (test code = 2209) 9.8 MG/DL PROTEIN, TOTAL (test code = 2229) 6.4 G/DL ALBUMIN (test code = 2201) 4.5 G/DL CALC GLOBULIN (test code = 2240) 1.9 G/DL CALC A/G RATIO (test code = 2234) 2.4 RATIO BILIRUBIN, TOTAL (test code = 2207) 0.6 MG/DL ALKALINE PHOSPHATASE (test code = 2204) 75 U/L AST (test code = 2218) 18 U/L ALT (test code = 2219) 12 U/L Uday F AustinURINALYSIS W/REFLEX [id number] 00:00:00* Test Item Value Reference Range Interpretation Comme nts COLOR (test code = 1501) YELLOW APPEARANCE (test code = 1502) CLEAR SPECIFIC GRAVITY (test code = 1503) 1.023 LEUKOCYTE ESTERASE (test cod e = 1504) NEGATIVE NITRITE (test code = 1505) NEGATIVE pH (test code = 1506) 5.0 PROTEIN (test code = 1507) NEGATIVE GLUCOSE (test code = 1508) NEGATIVE KETONES (test code = 1509) NEGATIVE UROBILINOGEN (test code = 1510) 0.2 MG/DL BILIRUBIN (test code = 1511) NEGATIVE OCCULT BLOOD (test code = 1512) NEGATIVE Uday Richard AustinCBC W/AUTO [id number] 00:00:00* Test Item Value Reference Range Interpretation Comme nts WBC (test code = 1001) 3.8 K/UL RBC (test code = 1002) 4.15 M/UL HEMOGLOBIN (test code = 1003) 12.2 G/DL HEMATOCRIT (test code = 1004) 37.1 % MCV (test code = 1005) 89.4 fL MCH (test code = 1006) 29.4 PG MCHC (test code = 1007) 32.9 G/DL RDW (test code = 1038) 13.6 % NEUTROPHILS (test code = 1008) 60.0 % LYMPHOCYTES (test code = 1010) 27.1 % MONOCYTES (test code = 1011) 10.8 % EOSINOPHILS (test code = 1012) 1.6 % BASOPHILS (test code = 1013) 0.5 % IMMATURE GRANULOCYTES (test code = 1036) 0.0 % NUCLEATED RBCS (test code = 1065) 0.0 /100WBC'S PLATELET COUNT (test code = 1015) 92 K/UL ABSOLUTE NEUTROPHILS (test c ode = 1066) 2.28 K/UL ABSOLUTE LYMPHOCYTES (test c ode = 1067) 1.03 K/UL ABSOLUTE MONOCYTES (test cod e = 1068) 0.41 K/UL ABSOLUTE EOSINOPHILS (test c ode = 1040) 0.06 K/UL ABSOLUTE BASOPHILS (test cod e = 1069) 0.02 K/UL ABS IMMATURE GRANULOCYTES (t est code = 1020) 0.00 K/UL ABS NUCLEATED RBCS (test cod e = 03645) 0.00 K/UL Uday SilvaCOMPREHENSIVE METABOLIC [id number] 00:00:00* Test Item Value Reference Range Interpretation Comme nts GLUCOSE (test code = 2217) 87 MG/DL BUN (test code = 2208) 27 MG/DL CREATININE (test code = 2214) 1.05 MG/DL eGFR (2020 CKD-EPI) (test co de = 46440) 56 ML/MIN/1.73 CALC BUN/CREAT (test code = 2235) 26 RATIO SODIUM (test code = 2231) 143 MEQ/L POTASSIUM (test code = 2228) 4.5 MEQ/L CHLORIDE (test code = 2215) 105 MEQ/L CARBON DIOXIDE (test code = 2206) 27 MEQ/L CALCIUM (test code = 2209) 9.8 MG/DL PROTEIN, TOTAL (test code = 2229) 6.4 G/DL ALBUMIN (test code = 2201) 4.5 G/DL CALC GLOBULIN (test code = 2240) 1.9 G/DL CALC A/G RATIO (test code = 2234) 2.4 RATIO BILIRUBIN, TOTAL (test code = 2207) 0.6 MG/DL ALKALINE PHOSPHATASE (test code = 2204) 75 U/L AST (test code = 2218) 18 U/L ALT (test code = 2219) 12 U/L Uday Richard AustinURINALYSIS W/REFLEX [id number] 00:00:00* Test Item Value Reference Range Interpretation Comme nts COLOR (test code = 1501) YELLOW APPEARANCE (test code = 1502) CLEAR SPECIFIC GRAVITY (test code = 1503) 1.023 LEUKOCYTE ESTERASE (test cod e = 1504) NEGATIVE NITRITE (test code = 1505) NEGATIVE pH (test code = 1506) 5.0 PROTEIN (test code = 1507) NEGATIVE GLUCOSE (test code = 1508) NEGATIVE KETONES (test code = 1509) NEGATIVE UROBILINOGEN (test code = 1510) 0.2 MG/DL BILIRUBIN (test code = 1511) NEGATIVE OCCULT BLOOD (test code = 1512) NEGATIVE Uday Ramos RicardoCOMPREHENSIVE METABOLIC [id number] 06:16:28* Test Item Value Reference Range Interpretation Comme nts GLUCOSE (test code = 2217) 103 MG/DL 70-99 H BUN (test code = 2208) 25 MG/DL 8-23 H CREATININE (test code = 2214) 0.88 MG/DL 0.60-1.30 eGFR (2020 CKD-EPI) (test code = 83786) 69 ML/MIN/1.73 >60 CALC BUN/CREAT (test code = 2235) 28 RATIO 6-28 SODIUM (test code = 2231) 143 MEQ/L 133-146 POTASSIUM (test code = 2228) 4.5 MEQ/L 3.5-5.4 CHLORIDE (test code = 2215) 105 MEQ/L 95-107 CARBON DIOXIDE (test code = 2206) 26 MEQ/L 19-31 CALCIUM (test code = 2209) 9.8 MG/DL 8.5-10.5 PROTEIN, TOTAL (test code = 2229) 6.9 G/DL 6.1-8.3 ALBUMIN (test code = [...] code = 2219) 12 U/L 5-40 LIPID [id number] 06:16:28* Test Item Value Reference Range Interpretation [...] SPECIMENS. FOR MOREINFORMATION, SEE CLIENT ANNOUNCEMENT AT [email or web address] RISK RATIO LDL/HDL (test code = 2238) 1.64 RATIO <3.22 [facility] has i mportant pathology staff changes effective 12/18/2022. New pathology staff will provide uninterrupted, excellent patient care and clinical consultation. See URL: [email or web address] UNLESS OTHERWISE INDICATED, ALL TESTING PERFORMED AT [facility] [address] [place] [address] PATTERN CHAIN BUILDER: JOSE LUIS SANDERS M.D. CLIA NUMBER [id number] [facility] [place]. [id number] URINALYSIS W/REFLEX [id number] 05:41:32* Test Item Value Reference Range Interpretation [...] code = 1510) 0.2 MG/DL See_Comment [Automated [employer]] The system which generated this result transmitted [...] EFFECTIVE 23. EPITHELIAL CELLS (test code = 57409) 11-15 /HPF 0-10 A BACTERIA (test code = 1515) 1+ NONE SEEN A CASTS, HYALINE (test code = 1517) NONE SEEN NONE-TRACE CBC W/AUTO DIFF WITH [id number] 05:13:37* Test Item Value Reference Range Interpretation [...] = 1065) 0.0 /100 WBC'S See_Comment [Automated [employer]] The system which generated this result transmitted [...] 0.00-0.10 ABS NUCLEATED RBCS (test code = 20319) 0.00 K/UL 0.00-0.11 CBC W/AUTO [id number] 00:00:00* Test Item Value Reference Range Interpretation Comme nts WBC (test code = 1001) 3.9 K/UL RBC (test code = 1002) 4.48 M/UL HEMOGLOBIN (test code = 1003) 12.9 G/DL HEMATOCRIT (test code = 1004) 39.5 % MCV (test code = 1005) 88.2 fL MCH (test code = 1006) 28.8 PG MCHC (test code = 1007) 32.7 G/DL RDW (test code = 1038) 13.3 % NEUTROPHILS (test code = 1008) 66.6 % LYMPHOCYTES (test code = 1010) 21.0 % MONOCYTES (test code = 1011) 9.3 % EOSINOPHILS (test code = 1012) 2.3 % BASOPHILS (test code = 1013) 0.5 % IMMATURE GRANULOCYTES (test code = 1036) 0.3 % NUCLEATED RBCS (test code = 1065) 0.0 /100WBC'S PLATELET COUNT (test code = 1015) 121 K/UL ABSOLUTE NEUTROPHILS (test c ode = 1066) 2.57 K/UL ABSOLUTE LYMPHOCYTES (test c ode = 1067) 0.81 K/UL ABSOLUTE MONOCYTES (test cod e = 1068) 0.36 K/UL ABSOLUTE EOSINOPHILS (test c ode = 1040) 0.09 K/UL ABSOLUTE BASOPHILS (test cod e = 1069) 0.02 K/UL ABS IMMATURE GRANULOCYTES (t est code = 1020) 0.01 K/UL ABS NUCLEATED RBCS (test cod e = 36187) 0.00 K/UL Uday Ramos AustinURINALYSIS W/REFLEX [id number] 00:00:00* Test Item Value Reference Range Interpretation Comme nts COLOR (test code = 1501) YELLOW APPEARANCE (test code = 1502) CLEAR SPECIFIC GRAVITY (test code = 1503) 1.024 LEUKOCYTE ESTERASE (test cod e = 1504) TRACE NITRITE (test code = 1505) NEGATIVE pH (test code = 1506) 5.0 PROTEIN (test code = 1507) NEGATIVE GLUCOSE (test code = 1508) NEGATIVE KETONES (test code = 1509) NEGATIVE UROBILINOGEN (test code = 1510) 0.2 MG/DL BILIRUBIN (test code = 1511) NEGATIVE OCCULT BLOOD (test code = 1512) NEGATIVE WHITE BLOOD CELLS (test code = 1513) 11-15 /HPF RED BLOOD CELLS (test code = 1514) 0-2 /HPF EPITHELIAL CELLS (test code = 28330) 11-15 /HPF BACTERIA (test code = 1515) 1+ CASTS, HYALINE (test code = 1517) NONE SEEN Uday SilvaCOMPREHENSIVE METABOLIC [id number] 00:00:00* Test Item Value Reference Range Interpretation Comme nts GLUCOSE (test code = 2217) 103 MG/DL BUN (test code = 2208) 25 MG/DL CREATININE (test code = 2214) 0.88 MG/DL eGFR (2020 CKD-EPI) (test co de = 63907) 69 ML/MIN/1.73 CALC BUN/CREAT (test code = 2235) 28 RATIO SODIUM (test code = 2231) 143 MEQ/L POTASSIUM (test code = 2228) 4.5 MEQ/L CHLORIDE (test code = 2215) 105 MEQ/L CARBON DIOXIDE (test code = 2206) 26 MEQ/L CALCIUM (test code = 2209) 9.8 MG/DL PROTEIN, TOTAL (test code = 2229) 6.9 G/DL ALBUMIN (test code = 2201) 4.6 G/DL CALC GLOBULIN (test code = 2240) 2.3 G/DL CALC A/G RATIO (test code = 2234) 2.0 RATIO BILIRUBIN, TOTAL (test code = 2207) 0.7 MG/DL ALKALINE PHOSPHATASE (test code = 2204) 83 U/L AST (test code = 2218) 15 U/L ALT (test code = 2219) 12 U/L Uday SilvaLIPID [id number] 00:00:00* Test Item Value Reference Range Interpretation Comme nts CHOLESTEROL (test code = 2210) 179 MG/DL TRIGLYCERIDES (test code = 2232) 129 MG/DL HDL CHOLESTEROL (test code = 2220) 59 MG/DL CALC LDL CHOL (test code = 2237) 97 MG/DL RISK RATIO LDL/HDL (test cod e = 2238) 1.64 RATIO Uday SilvaCBC W/AUTO [id number] 00:00:00* Test Item Value Reference Range Interpretation Comme nts WBC (test code = 1001) 3.9 K/UL RBC (test code = 1002) 4.48 M/UL HEMOGLOBIN (test code = 1003) 12.9 G/DL HEMATOCRIT (test code = 1004) 39.5 % MCV (test code = 1005) 88.2 fL MCH (test code = 1006) 28.8 PG MCHC (test code = 1007) 32.7 G/DL RDW (test code = 1038) 13.3 % NEUTROPHILS (test code = 1008) 66.6 % LYMPHOCYTES (test code = 1010) 21.0 % MONOCYTES (test code = 1011) 9.3 % EOSINOPHILS (test code = 1012) 2.3 % BASOPHILS (test code = 1013) 0.5 % IMMATURE GRANULOCYTES (test code = 1036) 0.3 % NUCLEATED RBCS (test code = 1065) 0.0 /100WBC'S PLATELET COUNT (test code = 1015) 121 K/UL ABSOLUTE NEUTROPHILS (test c ode = 1066) 2.57 K/UL ABSOLUTE LYMPHOCYTES (test c ode = 1067) 0.81 K/UL ABSOLUTE MONOCYTES (test cod e = 1068) 0.36 K/UL ABSOLUTE EOSINOPHILS (test c ode = 1040) 0.09 K/UL ABSOLUTE BASOPHILS (test cod e = 1069) 0.02 K/UL ABS IMMATURE GRANULOCYTES (t est code = 1020) 0.01 K/UL ABS NUCLEATED RBCS (test cod e = 83702) 0.00 K/UL Uday Ramos AustinURINALYSIS W/REFLEX [id number] 00:00:00* Test Item Value Reference Range Interpretation Comme nts COLOR (test code = 1501) YELLOW APPEARANCE (test code = 1502) CLEAR SPECIFIC GRAVITY (test code = 1503) 1.024 LEUKOCYTE ESTERASE (test cod e = 1504) TRACE NITRITE (test code = 1505) NEGATIVE pH (test code = 1506) 5.0 PROTEIN (test code = 1507) NEGATIVE GLUCOSE (test code = 1508) NEGATIVE KETONES (test code = 1509) NEGATIVE UROBILINOGEN (test code = 1510) 0.2 MG/DL BILIRUBIN (test code = 1511) NEGATIVE OCCULT BLOOD (test code = 1512) NEGATIVE WHITE BLOOD CELLS (test code = 1513) 11-15 /HPF RED BLOOD CELLS (test code = 1514) 0-2 /HPF EPITHELIAL CELLS (test code = 77640) 11-15 /HPF BACTERIA (test code = 1515) 1+ CASTS, HYALINE (test code = 1517) NONE SEEN Uday SilvaCOMPREHENSIVE METABOLIC [id number] 00:00:00* Test Item Value Reference Range Interpretation Comme nts GLUCOSE (test code = 2217) 103 MG/DL BUN (test code = 2208) 25 MG/DL CREATININE (test code = 2214) 0.88 MG/DL eGFR (2020 CKD-EPI) (test co de = 91669) 69 ML/MIN/1.73 CALC BUN/CREAT (test code = 2235) 28 RATIO SODIUM (test code = 2231) 143 MEQ/L POTASSIUM (test code = 2228) 4.5 MEQ/L CHLORIDE (test code = 2215) 105 MEQ/L CARBON DIOXIDE (test code = 2206) 26 MEQ/L CALCIUM (test code = 2209) 9.8 MG/DL PROTEIN, TOTAL (test code = 2229) 6.9 G/DL ALBUMIN (test code = 2201) 4.6 G/DL CALC GLOBULIN (test code = 2240) 2.3 G/DL CALC A/G RATIO (test code = 2234) 2.0 RATIO BILIRUBIN, TOTAL (test code = 2207) 0.7 MG/DL ALKALINE PHOSPHATASE (test code = 2204) 83 U/L AST (test code = 2218) 15 U/L ALT (test code = 2219) 12 U/L Uday SilvaLIPID [id number] 00:00:00* Test Item Value Reference Range Interpretation Comme nts CHOLESTEROL (test code = 2210) 179 MG/DL TRIGLYCERIDES (test code = 2232) 129 MG/DL HDL CHOLESTEROL (test code = 2220) 59 MG/DL CALC LDL CHOL (test code = 2237) 97 MG/DL RISK RATIO LDL/HDL (test cod e = 2238) 1.64 RATIO Uday SilvaCBC W/AUTO [id number] 00:00:00* Test Item Value Reference Range Interpretation Comme nts WBC (test code = 1001) 3.9 K/UL RBC (test code = 1002) 4.48 M/UL HEMOGLOBIN (test code = 1003) 12.9 G/DL HEMATOCRIT (test code = 1004) 39.5 % MCV (test code = 1005) 88.2 fL MCH (test code = 1006) 28.8 PG MCHC (test code = 1007) 32.7 G/DL RDW (test code = 1038) 13.3 % NEUTROPHILS (test code = 1008) 66.6 % LYMPHOCYTES (test code = 1010) 21.0 % MONOCYTES (test code = 1011) 9.3 % EOSINOPHILS (test code = 1012) 2.3 % BASOPHILS (test code = 1013) 0.5 % IMMATURE GRANULOCYTES (test code = 1036) 0.3 % NUCLEATED RBCS (test code = 1065) 0.0 /100WBC'S PLATELET COUNT (test code = 1015) 121 K/UL ABSOLUTE NEUTROPHILS (test c ode = 1066) 2.57 K/UL ABSOLUTE LYMPHOCYTES (test c ode = 1067) 0.81 K/UL ABSOLUTE MONOCYTES (test cod e = 1068) 0.36 K/UL ABSOLUTE EOSINOPHILS (test c ode = 1040) 0.09 K/UL ABSOLUTE BASOPHILS (test cod e = 1069) 0.02 K/UL ABS IMMATURE GRANULOCYTES (t est code = 1020) 0.01 K/UL ABS NUCLEATED RBCS (test cod e = 43820) 0.00 K/UL Uday SilvaURINALYSIS W/REFLEX [id number] 00:00:00* Test Item Value Reference Range Interpretation Comme nts COLOR (test code = 1501) YELLOW APPEARANCE (test code = 1502) CLEAR SPECIFIC GRAVITY (test code = 1503) 1.024 LEUKOCYTE ESTERASE (test cod e = 1504) TRACE NITRITE (test code = 1505) NEGATIVE pH (test code = 1506) 5.0 PROTEIN (test code = 1507) NEGATIVE GLUCOSE (test code = 1508) NEGATIVE KETONES (test code = 1509) NEGATIVE UROBILINOGEN (test code = 1510) 0.2 MG/DL BILIRUBIN (test code = 1511) NEGATIVE OCCULT BLOOD (test code = 1512) NEGATIVE WHITE BLOOD CELLS (test code = 1513) 11-15 /HPF RED BLOOD CELLS (test code = 1514) 0-2 /HPF EPITHELIAL CELLS (test code = 73826) 11-15 /HPF BACTERIA (test code = 1515) 1+ CASTS, HYALINE (test code = 1517) NONE SEEN Uday SilvaCOMPREHENSIVE METABOLIC [id number] 00:00:00* Test Item Value Reference Range Interpretation Comme nts GLUCOSE (test code = 2217) 103 MG/DL BUN (test code = 2208) 25 MG/DL CREATININE (test code = 2214) 0.88 MG/DL eGFR (2020 CKD-EPI) (test co de = 61728) 69 ML/MIN/1.73 CALC BUN/CREAT (test code = 2235) 28 RATIO SODIUM (test code = 2231) 143 MEQ/L POTASSIUM (test code = 2228) 4.5 MEQ/L CHLORIDE (test code = 2215) 105 MEQ/L CARBON DIOXIDE (test code = 2206) 26 MEQ/L CALCIUM (test code = 2209) 9.8 MG/DL PROTEIN, TOTAL (test code = 2229) 6.9 G/DL ALBUMIN (test code = 2201) 4.6 G/DL CALC GLOBULIN (test code = 2240) 2.3 G/DL CALC A/G RATIO (test code = 2234) 2.0 RATIO BILIRUBIN, TOTAL (test code = 2207) 0.7 MG/DL ALKALINE PHOSPHATASE (test code = 2204) 83 U/L AST (test code = 2218) 15 U/L ALT (test code = 2219) 12 U/L Uday SilvaLIPID [id number] 00:00:00* Test Item Value Reference Range Interpretation Comme nts CHOLESTEROL (test code = 2210) 179 MG/DL TRIGLYCERIDES (test code = 2232) 129 MG/DL HDL CHOLESTEROL (test code = 2220) 59 MG/DL CALC LDL CHOL (test code = 2237) 97 MG/DL RISK RATIO LDL/HDL (test cod e = 2238) 1.64 RATIO Uday Ramos AustinCBC W/AUTO [id number] 00:00:00* Test Item Value Reference Range Interpretation Comme nts WBC (test code = 1001) 3.9 K/UL RBC (test code = 1002) 4.48 M/UL HEMOGLOBIN (test code = 1003) 12.9 G/DL HEMATOCRIT (test code = 1004) 39.5 % MCV (test code = 1005) 88.2 fL MCH (test code = 1006) 28.8 PG MCHC (test code = 1007) 32.7 G/DL RDW (test code = 1038) 13.3 % NEUTROPHILS (test code = 1008) 66.6 % LYMPHOCYTES (test code = 1010) 21.0 % MONOCYTES (test code = 1011) 9.3 % EOSINOPHILS (test code = 1012) 2.3 % BASOPHILS (test code = 1013) 0.5 % IMMATURE GRANULOCYTES (test code = 1036) 0.3 % NUCLEATED RBCS (test code = 1065) 0.0 /100WBC'S PLATELET COUNT (test code = 1015) 121 K/UL ABSOLUTE NEUTROPHILS (test c ode = 1066) 2.57 K/UL ABSOLUTE LYMPHOCYTES (test c ode = 1067) 0.81 K/UL ABSOLUTE MONOCYTES (test cod e = 1068) 0.36 K/UL ABSOLUTE EOSINOPHILS (test c ode = 1040) 0.09 K/UL ABSOLUTE BASOPHILS (test cod e = 1069) 0.02 K/UL ABS IMMATURE GRANULOCYTES (t est code = 1020) 0.01 K/UL ABS NUCLEATED RBCS (test cod e = 93541) 0.00 K/UL Uday Ramos AustinURINALYSIS W/REFLEX [id number] 00:00:00* Test Item Value Reference Range Interpretation Comme nts COLOR (test code = 1501) YELLOW APPEARANCE (test code = 1502) CLEAR SPECIFIC GRAVITY (test code = 1503) 1.024 LEUKOCYTE ESTERASE (test cod e = 1504) TRACE NITRITE (test code = 1505) NEGATIVE pH (test code = 1506) 5.0 PROTEIN (test code = 1507) NEGATIVE GLUCOSE (test code = 1508) NEGATIVE KETONES (test code = 1509) NEGATIVE UROBILINOGEN (test code = 1510) 0.2 MG/DL BILIRUBIN (test code = 1511) NEGATIVE OCCULT BLOOD (test code = 1512) NEGATIVE WHITE BLOOD CELLS (test code = 1513) 11-15 /HPF RED BLOOD CELLS (test code = 1514) 0-2 /HPF EPITHELIAL CELLS (test code = 15699) 11-15 /HPF BACTERIA (test code = 1515) 1+ CASTS, HYALINE (test code = 1517) NONE SEEN Uday SilvaCOMPREHENSIVE METABOLIC [id number] 00:00:00* Test Item Value Reference Range Interpretation Comme nts GLUCOSE (test code = 2217) 103 MG/DL BUN (test code = 2208) 25 MG/DL CREATININE (test code = 2214) 0.88 MG/DL eGFR (2020 CKD-EPI) (test co de = 19833) 69 ML/MIN/1.73 CALC BUN/CREAT (test code = 2235) 28 RATIO SODIUM (test code = 2231) 143 MEQ/L POTASSIUM (test code = 2228) 4.5 MEQ/L CHLORIDE (test code = 2215) 105 MEQ/L CARBON DIOXIDE (test code = 2206) 26 MEQ/L CALCIUM (test code = 2209) 9.8 MG/DL PROTEIN, TOTAL (test code = 2229) 6.9 G/DL ALBUMIN (test code = 2201) 4.6 G/DL CALC GLOBULIN (test code = 2240) 2.3 G/DL CALC A/G RATIO (test code = 2234) 2.0 RATIO BILIRUBIN, TOTAL (test code = 2207) 0.7 MG/DL ALKALINE PHOSPHATASE (test code = 2204) 83 U/L AST (test code = 2218) 15 U/L ALT (test code = 2219) 12 U/L Uday Ramos AustinLIPID [id number] 00:00:00* Test Item Value Reference Range Interpretation Comme nts CHOLESTEROL (test code = 2210) 179 MG/DL TRIGLYCERIDES (test code = 2232) 129 MG/DL HDL CHOLESTEROL (test code = 2220) 59 MG/DL CALC LDL CHOL (test code = 2237) 97 MG/DL RISK RATIO LDL/HDL (test cod e = 2238) 1.64 RATIO Uday RicksRS-CoV-2 (COVID-19), RT-PCR/[id number] 10:18:51* Test Item Value Reference Range Interpretation Comments SARS-CoV-2 INTERPRETATION (test code = 98566) NEGATIVE SEE NOTE SARS-CoV-2 R NA NOT [...] prevalence is high. SOURCE (test code = 25062) NOT SPECIFIED Note: Methodolog y is Franky Earl Real-Time RT-PCR. The expected result or reference range is NEGATIVE (Not Detected). For more information regarding COVID-19 testing to include clinicalinformation, methodology detail, intended use, FDA authorization andrecommended fact sheets for patients or healthcare providers, see [employer] Announcement: SARS-CoV-2 (COVID-19) by NAAT at URL below (note,fact sheets are provided by method given in report:[email or web address]/ Alternatively, see downloadable PDF fact sheet at:https://www.[employer]. [employer]/ZQNXM-10-UN-PCR UNLESS OTHERWISE INDICATED, ALL TESTING PERFORMED [facility] [address] [place] [address] PATTERN CHAIN BUILDER: RACIEL SALINAS M.D. CLIA NUMBER [id number] [place]. [id number] SARS-CoV-2 (COVID-19) by RT-PCR (HIGH RISK)2021-11-16 00:00:00* Test Item Value Reference Range Interpretation Comme nts SARS-CoV-2 INTERPRETATION (t est code = 07079) NEGATIVE SOURCE (test code = 76484) NOT SPECIFIED Uday SilvaSARS-CoV-2 (COVID-19) by RT-PCR (HIGH RISK)2021-11-16 00:00:00* Test Item Value Reference Range Interpretation Comme nts SARS-CoV-2 INTERPRETATION (t est code = 96224) NEGATIVE SOURCE (test code = 81484) NOT SPECIFIED Uday Ramos [id number] (COVID-19) by RT-PCR (HIGH RISK)2021-11-16 00:00:00* Test Item Value Reference Range Interpretation Comme nts SARS-CoV-2 INTERPRETATION (t est code = 02187) NEGATIVE SOURCE (test code = 61754) NOT SPECIFIED Uday SilvaSARS-CoV-2 (COVID-19) by RT-PCR (HIGH RISK)2021-11-16 00:00:00* Test Item Value Reference Range Interpretation Comme nts SARS-CoV-2 INTERPRETATION (t est code = 66613) NEGATIVE SOURCE (test code = 19751) NOT SPECIFIED Uday Rmaos [id number] SURGICAL PATHOLOGY, LEVEL [id number] 11:54:00 [place] [address] Laboratory Printed: 02/26/17 1155 B[facility] DAEMPathology Page: 1 Patient: EUSEBIA ZAVALETA Birthdate: 1950 Age/Sex: 66/F Spec#: [id number]: Claire Rice Specimen Date: 02/24/17 Received Date: 02/25/17 Specimen: SKIN CLINICAL DIAGNOSIS L98.9 PATHOLOGIC DIAGNOSIS Skin, abdomen, excision: - Irritated, inflamed seborrheic keratosis. - No dysplasia or malignancy identified. Pathologist:Jayson Cowan MD Entered by:02/26/17 - 1144 LAB.YGP PROCEDURES: 79180 GROSS DESCRIPTION A. SKIN ABDOMEN The specimen [...] code:A1 - ends Patient: EUSEBIA ZAVALETA Re02/24/17[facility] MR#: [id number] CONTINUED ON NEXT PAGE Dis: Sta: DEP CLI ----- ------- [address] [address] Laboratory Printed: 02/26/[address] [facility] DAEMPathology Page: 2 Patient: EUSEBIA ZAVALETAYCE [id number] (Continued) GROSS DESCRIPTION (Continued) A2 - cross sections Dictated by: Vidhi Varela Entered by: 02/25/17 - 1133 [facility].YGP MICROSCOPIC DESCRIPTION A microscopic examination was performed to arrive at the diagnostic conclusion reported. Signed (Electronically Signed) Jayson Cowan MD 02/26/17 Patient: EUSEBIA ZAVALETA ANDREA Re02/24/17Loc: [facility] MR#: [id number] END OFREPORT Dis: Sta: DEP CLI
[2024-09-29] MEDS ORDERED: IPRATROPIUM BROM 0.5MG/2.5ML ONE (01:09)
[2024-09-29] MEDS ORDERED: ALBUTEROL 2.5 MG/3 ML NEB SOL ONE (01:09)
[2024-09-29] MEDS ORDERED: predniSONE 20 MG TAB ONE (01:09)
[2024-09-29] MEDS ORDERED: GUAIFENESIN/DM 5 ML UCUP ONE (01:10)
[2024-09-29] MEDS ORDERED: BENZONATATE 100 MG CAP PO ONE (01:10)
[2024-09-29 01:29] LABS: Absolute Eosinophils 0.1 K/uL (0-0.5); Absolute Lymphocytes (CBC) 0.8 K/uL (0.7-4.9); Absolute Monocytes 0.3 K/uL (0.1-1.3); Basophils % 0.5 % (0-1.3); Eosinophils % 2.1 % (0-4.4); Hematocrit 32.3 % (36.0-45.0); Hemoglobin 10.7 g/dL (12.0-15.0); Lymphocytes % 24.9 % (15.3-44.8); MCH 29.8 pg (27.0-35.0); MCHC 33.2 g/dL (32.0-36.0); MCV 89.8 fL (80-100); MPV 10.5 fL (7.6-11.3); Monocytes % 8.1 % (3.3-12.3); Neutrophils % 64.4 % (41.7-73.7); Nucleated Red Blood Cells % 0.2 % (0-0); PT Prothrombin Time 10.5 SECONDS (9.4-12.5); Platelets 111 thou/uL (152-406); Protime INR 0.94; Red Cell Distribution Width 14.9 % (12.1-15.2)
[2024-09-29 01:33] LABS: Albumin 3.8 g/dL (3.4-5.0); Albumin/Globulin Ratio 1.2 (1.1-1.8); Anion Gap 6.6 mEq/L (5.0-15.0); Bilirubin Direct 0.3 mg/dL (0-0.2); Bilirubin Indirect, Calculated 0.7 mg/dL (0.2-0.8); Globulin 3.1 g/dL (2.3-3.5); Potassium 3.6 mEq/L (3.5-5.1); Protein, Total 6.9 g/dL (6.4-8.2); Troponin High Sensitivity 13.8 pg/mL (<58.9)
[2024-09-29 01:56] LABS: Specific Gravity 1.008 (1.005-1.030); Sqamous Epithelial <5 /HPF (None Seen); Urine Bacteria None Seen /HPF (<20); Urine Bilirubin NEGATIVE (Negative); Urine Blood Negative (Negative); Urine Clarity Clear (Clear); Urine Color Colorless (Yellow); Urine Culture Reflex Order NOT NEEDED; Urine Glucose NEGATIVE (Negative); Urine Ketones NEGATIVE (Negative); Urine Micro Reflex YN NO BILL MICROSCOPIC; Urine Mucus Slight /HPF (None Seen); Urine Nitrite NEGATIVE (Negative); Urine Protein NEGATIVE (Negative); Urine RBC <5 /HPF (None Seen); Urine Urobilinogen Normal (Normal); Urine WBC <5 /HPF (<5)
--- NOTE | 2024-09-29 04:21 | EDPHYS ---
Physician Documentation [facility] Name: Sonal Scruggs Age: 74 yrs Sex: Female : 1950 Arrival Date: 09/29/2024 Time: 00:19 Bed 6 Private MD: ED Physician Eladio Mishra HPI: 09/29 00:27 This 74 yrs old Other Race Female presents to ER via EMS with complaints of dyspnea . sp4 06:03 74-year-old female presents with complaint of dyspnea patient has past medical history sp4 of COPD, history of bacteremia on 08/06/2023 with history of prior admission. History of hyperlipidemia hypertension and asthma. Patient's medications include metoprolol twice daily, Paxil 10 mg p.o. daily, Trelegy Ellipta inhaler daily, Protonix 40 mg p.o. daily, Lipitor 40 mg p.o. bedtime, furosemide 20 mg p.o. daily, Entresto 49-51 mg tablet twice daily, patient reports associated cough productive of clear phlegm this has been worsening in the past 7 days.. Historical: - Allergies: 00:26 Azithromycin; cp4 00:26 Ciprofloxacin HCl; cp4 00:26 Codeine; cp4 00:26 Morphine; cp4 00:26 PENICILLINS; cp4 00:26 Sulfa (Sulfonamide Antibiotics); cp4 00:26 TETRACYCLINES; cp4 - PMHx: 00:26 Asthma; Chronic obstructive lung disease; COPD; Hyperlipidemia; Hypertension; cp4 Myocardial infarction; - PSHx: 00:26 heart stent; cp4 - Immunization history:: Adult Immunizations up to date. - Infectious Disease History:: Denies. - Social history:: Smoking status: Patient denies any tobacco usage or history of. - Family history:: not pertinent. ROS: 06:03 Constitutional: Negative for fever, chills, and weight loss, positive cough, positive sp4 dyspnea, positive production of clear phlegm, positive for feeling unwell 06:03 All other systems are negative, Exam: 06:05 Constitutional: This is a well developed, well nourished patient who is awake, alert, sp4 and in no acute distress. Head/Face: Normocephalic, atraumatic. Eyes: Pupils equal round and reactive to light, extra-ocular motions intact. Lids and lashes normal. Conjunctiva and sclera are not injected. Cornea within normal limits. Periorbital areas with no swelling, redness, or edema. ENT: Nares patent. No nasal discharge, no septal abnormalities noted. Tympanic membranes are normal and external auditory canals are clear. Oropharynx with no redness, swelling, or masses, exudates, or evidence of obstruction, uvula midline. Mucous membranes moist. Neck: Trachea midline, no thyromegaly or masses palpated, and no cervical lymphadenopathy. Supple, full range of motion without nuchal rigidity, or vertebral point tenderness. Chest/axilla: Normal chest wall appearance and motion. Nontender with no deformity. No lesions are appreciated. Cardiovascular: Regular rate and rhythm with a normal S1 and S2. No gallops, murmurs, or rubs. Normal PMI, no JVD. No pulse deficits. Respiratory: Lungs have equal breath sounds bilaterally, clear to auscultation and percussion. No rales, rhonchi or wheezes noted. No increased work of breathing, no retractions or nasal flaring. Abdomen/GI: Soft, with normal bowel sounds. No distension or tympany. No guarding or rebound. No evidence of tenderness throughout. Back: No spinal tenderness. No costovertebral tenderness. Skin: Warm, dry with normal turgor. Normal color with no rashes, no lesions, and no evidence of cellulitis. MS/ Extremity: Pulses equal, no cyanosis. Neurovascular intact. Full, normal range of motion. Neuro: Awake and alert, GCS 15, oriented to person, place, time, and situation. Cranial nerves II-XII grossly intact. Motor strength 5/5 in all extremities. Sensory grossly intact. 06:05 ECG was reviewed by the Attending Physician. EKG 0059 sinus bradycardia rate 57 otherwise normal Vital Signs: 00:24 BP 164 / 62; Pulse 57; Resp 20; Temp 98; Pulse Ox 100% ; Pain 0/10; cp4 01:57 BP 131 / 55; Pulse 57; Resp 20 S; Pulse Ox 94% on R/A; aa10 04:16 BP 122 / 71; Pulse 61 MON; Resp 18; Pulse Ox 95% on R/A; aa10 04:16 Normal Sinus Rhythm aa10 00:24 Pain Scale: Adult cp4 Anastacio Coma Score: 06:05 Eye Response: spontaneous(4). Motor Response: obeys commands(6). Verbal Response: sp4 oriented(5). Total: 15. MDM: 00:40 Medical Screening Exam initiated sp4 04:03 ED course: EXAMINATION: XR CHEST 1 VIEW INDICATION: Female, 74 years old, CHEST PAIN sp4 TECHNIQUE: 1 view COMPARISON(S): None available FINDINGS: SUPPORT DEVICES: Overlying leads. LUNGS/PLEURA: Perihilar interstitial prominence. No consolidation, pleural effusion or pneumothorax. HEART/MEDIASTINUM: Size within normal limits for technique. OTHER: No acute osseous findings. IMPRESSION: Interstitial markings suggestive of edema or pneumonitis/bronchitis. No consolidation. . 06:05 Differential Diagnosis altered mental status, sepsis, flu, Upper respiratory infection, sp4 CHF, COPD exacerbation.. Data reviewed: vital signs, nurses notes, lab test result(s), EKG, radiologic studies, plain films. Consideration of Admission/Observation Escalation of care including admission/observation considered. ED course: Patient has improved significantly after management of cough, p.o. prednisone and breathing treatment. Early CHF is possible but there is no sign of florid congestive heart failure. Patient advised to continue with daily medications including Lasix 20 mg p.o. daily we will provide prescription for albuterol, prednisone, dextromethorphan and additionally prescription for levofloxacin in case there is early bacterial pneumonia. 09/29 00:43 Order name: Basic Metabolic Panel; Complete Time: 04:4 09/29 00:43 Order name: CBC with Diff; Complete Time: 04:01 4 09/29 00:43 Order name: LFT's; Complete Time: 04:01 sp4 09/29 00:43 Order name: Magnesium; Complete Time: 04:01 sp4 09/29 00:43 Order name: NT PRO-BNP; Complete Time: 04:01 sp4 09/29 00:43 Order name: PT-INR; Complete Time: 04:01 sp4 09/29 00:43 Order name: Troponin HS; Complete Time: 04:01 sp4 09/29 00:43 Order name: Influenza Screen (a \T\ B) sp4 09/29 00:44 Order name: Urinalysis W/Microscopic; Complete Time: 04:01 4 09/29 00:43 Order name: XRAY Chest (1 view) sp4 09/29 00:43 Order name: Cardiac monitoring; Complete Time: : sp4 12 00:43 Order name: EKG - Nurse/Tech; Complete Time: : sp4 09/29 00:43 Order name: IV Saline Lock; Complete Time: : sp4 09/29 00:43 Order name: Labs collected and sent; Complete Time: : sp4 09/29 00:43 Order name: O2 Per Protocol; Complete Time: : sp4 09/29 00:43 Order name: O2 Sat Monitoring; Complete Time: : sp4 EC:05 Rate is 57 beats/min. Rhythm is regular, Sinus bradycardia. QRS [place] is Normal. [place] sp4 interval is normal. QRS interval is normal. QT interval is normal. No Q waves. T waves are Normal. No ST changes noted. Clinical impression: No evidence of ischemia. Interpreted by me. Reviewed by me. Administered Medications: 01:10 Drug: Dextromethorphan-Guaifenesin PO Liquid 10 mg-100 mg/5 mL 10 ml PO once Route: PO; ha1 01:30 Follow up: Response: No adverse reaction; Marked relief of symptoms ha1 01:10 Drug: Tessalon Perle PO 200 mg PO once Route: PO; ha1 01:30 Follow up: Response: No adverse reaction; Marked relief of symptoms ha1 01:10 Drug: predniSONE PO 60 mg PO once Route: PO; ha1 01:30 Follow up: Response: No adverse reaction; Marked relief of symptoms ha1 01:10 Drug: Albuterol Inhalation 2.5 mg Inhalation once Route: Inhalation; ha1 01:30 Follow up: Response: No adverse reaction; Marked relief of symptoms ha1 01:10 Drug: Ipratropium Inhalation Aerosol 0.5 mg Inhalation once Route: Inhalation; ha1 01:30 Follow up: Response: No adverse reaction; Marked relief of symptoms ha1 04:27 Not Given (Physician Discretion): Rocephin - rocephin (ceftriaxone)1 grams IVPB once ha1 over 30 mins; (mix in 50 mL NS) 04:49 Drug: LevOfloxacin PO 750 mg PO once Route: PO; aa10 04:49 Follow up: Response: No adverse reaction; Medication administered at discharge. aa10 Disposition Summary: 12/11/24 04:21 Discharge Ordered Notes: Location: Home sp4 Problem: new sp4 Symptoms: have improved sp4 Condition: Stable sp4 Diagnosis - Acute pharyngitis, unspecified sp4 - Cough sp4 - COPD/ Chronic obstructive pulmonary disease with (acute) exacerbation sp4 Followup: sp4 - With: Private Physician - When: 7 - 10 days - Reason: Recheck today's complaints Discharge Instructions: - Discharge Summary Sheet sp4 - Living With COPD sp4 Forms: - Patient Portal Instructions sp4 Prescriptions: - dextromethorphan-guaifenesin 20-400 mg Oral tablet - take 1 tablet ORAL route every 4 hours PRN cough; 40 tablet; Refills: 0, sp4 Product Selection Permitted - Albuterol Sulfate 2.5 mg /3 mL (0.083 %) Inhalation Solution for Nebulization - inhale 1 unit NEBULIZATION route every 4 hours As needed Dispense 50 vials; 50 sp4 unit; Refills: 0, Product Selection Permitted - Prednisone 20 mg Oral Tablet - take 2 tablets ORAL route once daily for 5 days; 10 tablet; Refills: 0, Product sp4 Selection Permitted - levofloxacin 750 mg Oral tablet - take 1 tablet ORAL route once daily; 7 tablet; Refills: 0, Product Selection sp4 Permitted Signatures: Dispatcher [employer] Hattie Barnes, RN RN ha1 Eladio Mishra MD MD sp4 Sonia Navarro 4 Matt Mathis RN RN aa10 Corrections: (The following items were deleted from the chart) 00:44 00:44 Influenza Screen (A \T\ B)+BA.LAB.BRZ ordered. EDMS EDMS
--- NOTE | 2024-09-29 04:21 | ER ---
Nurse's Notes [facility] Name: Sonal Scruggs Age: 74 yrs Sex: Female : 1950 Arrival Date: 09/29/2024 Time: 00:19 Bed 6 Private MD: Diagnosis: Acute pharyngitis, unspecified;Cough;COPD/ Chronic obstructive pulmonary disease with (acute) exacerbation Presentation: 09/29 00:24 Chief complaint: EMS states: shortness of breath that started about a week ago with a cp4 cough. Patient has COPD and CHF. EMS gave 40 Lasix IV. Patient has new prescription for lasix but has not started it. Coronavirus screen: Client denies travel out of the [place] in the last 14 days. At this time, the client does not indicate any symptoms associated with coronavirus-19. Ebola Screen: Patient negative for fever greater than or equal to 101.5 degrees Fahrenheit, and additional compatible Ebola Virus Disease symptoms Patient denies exposure to infectious person. Patient denies travel to an Ebola-affected area in the 21 days before illness onset. No symptoms or risks identified at this time. Initial Sepsis Screen: Does the patient meet any 2 criteria? No. Patient's initial sepsis screen is negative. Does the patient have a suspected source of infection? No. Patient's initial sepsis screen is negative. Risk Assessment: Do you want to hurt yourself or someone else? Patient reports no desire to harm self or others. Onset of symptoms was September 23, 2024. 00:24 Method Of Arrival: EMS: [facility] cp4 00:24 Acuity: [facility]Y 3 cp4 Triage Assessment: 00:26 General: Appears in no apparent distress. comfortable, Behavior is calm, cooperative, cp4 appropriate for age. Pain: Denies pain. EENT: No signs and/or symptoms were reported regarding the EENT system. Neuro: Level of Consciousness is awake, alert, obeys commands, Oriented to person, place, time, situation. Cardiovascular: Patient's skin is warm and dry. Respiratory: Airway is patent Respiratory effort is even, labored, Breath sounds with rales bilaterally. GI: No signs and/or symptoms were reported involving the gastrointestinal system. : No signs and/or symptoms were reported regarding the genitourinary system. Derm: No signs and/or symptoms reported regarding the dermatologic system. Musculoskeletal: No signs and/or symptoms reported regarding the musculoskeletal system. Injury Description:. Historical: - Allergies: 00:26 Azithromycin; cp4 00:26 Ciprofloxacin HCl; cp4 00:26 Codeine; cp4 00:26 Morphine; cp4 00:26 PENICILLINS; cp4 00:26 Sulfa (Sulfonamide Antibiotics); cp4 00:26 TETRACYCLINES; cp4 - PMHx: 00:26 Asthma; Chronic obstructive lung disease; COPD; Hyperlipidemia; Hypertension; cp4 Myocardial infarction; - PSHx: 00:26 heart stent; cp4 - Immunization history:: Adult Immunizations up to date. - Infectious Disease History:: Denies. - Social history:: Smoking status: Patient denies any tobacco usage or history of. - Family history:: not pertinent. Screenin:28 [facility] ED Fall Risk Assessment (Adult) History of falling in the last 3 months, cp4 including since admission No falls in past 3 months (0 pts) Confusion or Disorientation No (0 pts) Intoxicated or Sedated No (0 pts) Impaired Gait No (0 pts) Mobility Assist Device Used No (0 pt) Altered Elimination No (0 pt) Score/Fall Risk Level 0 - 2 = Low Risk Oriented to surroundings, Maintained a safe environment, Assessed \T\ reinforced patient's understanding of fall precautions, Hourly rounding (assess needs \T\ fall precautionary measures) done. Abuse screen: Denies threats or abuse. Nutritional screening: No deficits noted. Tuberculosis screening: No symptoms or risk factors identified. Assessment: 00:28 Reassessment: No changes from previously documented assessment. cp4 02:00 Reassessment: Patient appears in no apparent distress at this time. No changes from aa10 previously documented assessment. Patient and/or family updated on plan of care and expected duration. Pain level reassessed. Patient is alert, oriented x 3, equal unlabored respirations, skin warm/dry/pink. 03:00 Reassessment: Patient appears in no apparent distress at this time. No changes from aa10 previously documented assessment. Patient and/or family updated on plan of care and expected duration. Pain level reassessed. Patient is alert, oriented x 3, equal unlabored respirations, skin warm/dry/pink. 04:18 Reassessment: Patient appears in no apparent distress at this time. No changes from aa10 previously documented assessment. Patient and/or family updated on plan of care and expected duration. Pain level reassessed. Patient is alert, oriented x 3, equal unlabored respirations, skin warm/dry/pink. Vital Signs: 00:24 BP 164 / 62; Pulse 57; Resp 20; Temp 98; Pulse Ox 100% ; Pain 0/10; cp4 01:57 BP 131 / 55; Pulse 57; Resp 20 S; Pulse Ox 94% on R/A; aa10 04:16 BP 122 / 71; Pulse 61 MON; Resp 18; Pulse Ox 95% on R/A; aa10 04:16 Normal Sinus Rhythm aa10 00:24 Pain Scale: Adult cp4 Anastacio Coma Score: 06:05 Eye Response: spontaneous(4). Motor Response: obeys commands(6). Verbal Response: sp4 oriented(5). Total: 15. ED Course: 00:21 Patient arrived in ED. kmf 00:23 Sonia Navarro is Primary Nurse. cp4 00:26 Triage completed. cp4 00:26 Eladio Mishra MD is Attending Physician. sp4 00:26 Arm band placed on left wrist. Patient placed in an exam room, on a stretcher. cp4 00:28 Bed in low position. Call light in reach. Side rails up X2. cp4 00:28 No provider procedures requiring assistance completed. Maintain EMS IV. Dressing cp4 intact. Good blood return noted. Site clean \T\ dry. Gauge \T\ site: 18 LAC. Flushed with 10 mL NS. 01:05 intact, bleeding controlled, No redness/swelling at site. Pressure dressing applied. cp4 01:05 Inserted saline lock: 20 gauge in right antecubital area, using aseptic technique. cp4 Blood collected. Flushed with 10 mL NS. 01:11 XRAY Chest (1 view) In Process Unspecified. EDMS 04:48 Provided Education on: patient educated on need to fill prescription, signs of aa10 worsening condition, and to present to the ED in the presence of worsening signs and symptoms. Administered Medications: 01:10 Drug: Dextromethorphan-Guaifenesin PO Liquid 10 mg-100 mg/5 mL 10 ml PO once Route: PO; ha1 01:30 Follow up: Response: No adverse reaction; Marked relief of symptoms ha1 01:10 Drug: Tessalon Perle PO 200 mg PO once Route: PO; ha1 01:30 Follow up: Response: No adverse reaction; Marked relief of symptoms ha1 01:10 Drug: predniSONE PO 60 mg PO once Route: PO; ha1 01:30 Follow up: Response: No adverse reaction; Marked relief of symptoms ha1 01:10 Drug: Albuterol Inhalation 2.5 mg Inhalation once Route: Inhalation; ha1 01:30 Follow up: Response: No adverse reaction; Marked relief of symptoms ha1 01:10 Drug: Ipratropium Inhalation Aerosol 0.5 mg Inhalation once Route: Inhalation; ha1 01:30 Follow up: Response: No adverse reaction; Marked relief of symptoms ha1 04:27 Not Given (Physician Discretion): Rocephin - rocephin (ceftriaxone)1 grams IVPB once ha1 over 30 mins; (mix in 50 mL NS) 04:49 Drug: LevOfloxacin PO 750 mg PO once Route: PO; aa10 04:49 Follow up: Response: No adverse reaction; Medication administered at discharge. aa10 Medication: 00:28 VIS not applicable for this client. cp4 Outcome: 04:21 Discharge ordered by . sp4 04:47 Discharged to home ambulatory, aa10 04:47 Condition: good 04:47 Discharge instructions given to patient, Instructed on discharge instructions, follow up and referral plans. Demonstrated understanding of instructions, follow-up care, medications, Prescriptions given X 5 prescriptions given 04:51 Patient left the ED. aa10 Signatures: Dispatcher [employer] EDRI Hattie Blanca, RN RN ha1 Eladio Mishra MD MD sp4 Potter, Christina cp4 [facility] Matt Mathis RN RN aa10
[2024-09-29] MEDS ORDERED: levoFLOXacin 750 MG TAB ONE (04:25)
[2024-09-29 05:13] VITALS: TEMP 98
[2024-09-29 05:33] VITALS: BP 122/71; O2SAT 95
--- NOTE | 2024-09-29 05:50 | RAD REPORT ---
EXAMINATION: XR CHEST 1 VIEW INDICATION: Female, 74 years old, CHEST PAIN TECHNIQUE: 1 view COMPARISON(S): None available FINDINGS: SUPPORT DEVICES: Overlying leads. LUNGS/PLEURA: Perihilar interstitial prominence. No consolidation, pleural effusion or pneumothorax. HEART/MEDIASTINUM: Size within normal limits for technique. OTHER: No acute osseous findings. IMPRESSION: Interstitial markings suggestive of edema or pneumonitis/bronchitis. No consolidation. Electronically signed by: Cory Granado MD 09/29/2024 01:33 AM [facility] Due to temporary technical issues with the PACS/T[employer]ORize reporting system, reports are being chay d by the in-house radiologist without review as a courtesy to ensure prompt reporting the interpreting radiologist is fully responsible for the content of the report. Transcribed Date/Time: 09/29/2024 5:49 AM
--- NOTE | 2024-10-01 15:53 | EKG ---
Test Date: 2024-09-29 Test Time: 01:00:11 Grounds Supervisor: SAMPSON MEASUREMENT RESULTS: Intervals: Rate: 57 [place]: 110 QRSD: 86 QT: 452 QTc: 439 [place]: P: 48 [place]: 110 QRS: 19 T: 39 INTERPRETIVE STATEMENTS: Sinus bradycardia with short [place] Septal infarct, age undetermined Abnormal ECG Compared to ECG 04/27/2024 03:25:42 Short [place] interval now present Myocardial infarct finding now present Sinus rhythm no longer present Electronically Signed On 10-01-24 15:49:17 [employer] by Jose Alfredo Joyce
--- NOTE | 2024-10-01 15:53 | EKG ---
Test Date: 2024-09-29 Test Time: 00:59:35 Evp General Counsel: SAMPSON MEASUREMENT RESULTS: Intervals: Rate: 57 MA: 116 QRSD: 86 QT: 450 QTc: 438 [place]: P: 59 MA: 116 QRS: 19 T: 31 INTERPRETIVE STATEMENTS: Sinus bradycardia Otherwise normal ECG Compared to ECG 04/27/2024 03:25:42 Sinus rhythm no longer present Electronically Signed On 10-01-24 15:49:18 EDUCATION PROGRAM MANAGER by Jose Alfredo Joyce
== END 2024-09-29 04:51 | disposition home or self-care (01) ==
LOC: ER 00:19
DX: J44.1 Chronic obstructive pulmonary disease with (acute) exacerbation (principal); J02.9 Acute pharyngitis, unspecified; I10 Essential (primary) hypertension; E78.5 Hyperlipidemia, unspecified
CPT/HCPCS: 93005 ×2; 85025; 81001; 80048; 36415; 83735; 85610; 80076; 84484; 83880; 87804 ×2; 71045; 99284; J7512; J7613; J7644